=== PATIENT | female | born 1970 | race Caucasian/White ===

== ENCOUNTER → 2018-02-20 17:36 | Outpatient (CLI) | payer OTHER, SELFPAY ==
[2018-02-25 11:08] LABS: HPV Reflexed? NOT INDICATED
== END ==
PROVIDERS: Visit Provider Obstetrics & Gynecology
DX: Z12.4 Encounter for screening for malignant neoplasm of cervix (principal)
CPT/HCPCS: 88175; G0145

== ENCOUNTER → 2018-05-06 07:49 | Outpatient (CLI) | payer OTHER, SELFPAY ==
[2018-05-06 09:06] LABS: Absolute Lymphocyte Count 3.43 X10^3/ul (0.83-4.51); Absolute Neutrophil Count 8.5 X10^3/uL (2.0-7.7); Basophil# 0.04 X10^3/uL; Basophil% 0.3 % (0-1); Color, Urine Yellow (Yellow); Eosinophil# 0.25 X10^3/uL; Eosinophils% 1.9 % (0-5); Glucose, Dipstick Normal (Normal); Hematocrit 39.3 % (37-47); Hemoglobin 13.2 g/dl (12.0-15.0); Ketone-Dipstick Negative (Negative); Leukocyte Esterase-Dipstick 25 /ul (Negative); Lymphocyte # 3.43 X10^3/ul; Lymphocyte % 25.7 % (19-41); Mean Corp Hgb Conc 33.6 g/gl (32-36); Mean Corpuscular Hgb 29.5 pg (27.0-32.0); Mean Corpuscular Volume 87.9 fL (81-99); Monocyte% 7.5 % (0-10); Neutrophil # 8.52 X10^3/uL (2.7-7.7); Neutrophil % 63.9 % (47-70); Nitrite-Dipstick Negative (Negative); Occult Blood-Urine Negative /ul (Negative); Platelet Count 327 K/mm3 (150-450); Protein-Dipstick 15 mg/dl (Negative); RBC Distribution Width CV 13.7 % (11.6-14.6); RBC Distribution Width SD 43.3 fl (35.1-43.9); Red Blood Count 4.47 M/mm3 (4.2-5.4); Specific Gravity, Urine 1.025 (1.002-1.030); Urine Bilirubin Dipstick Negative (Negative); Urine Clarity Clear (Clear); Urine Urobilinogen Normal (Normal); White Blood Count 13.3 K/mm3 (4.4-11.0)
[2018-05-06 09:49] LABS: ALB/GLOB Ratio 0.9 RATIO (0.9-2.4); AST(SGOT) 40 U/L (15-37); Alanine Aminotransfer ALT/SGPT 66 U/L (13-56); Albumin, Serum 3.7 g/dL (3.2-5.0); Alkaline Phosphatase 87 U/L (45-117); Anion Gap 13 (5-15); BUN 16 mg/dL (7-18); BUN/Creat Ratio 23.4 RATIO (10-20); Bilirubin, Direct 0.11 mg/dL (0.00-0.30); Calcium,Total 8.5 mg/dL (8.5-10.1); Chloride 104 mmol/L (98-107); Cholesterol 181 mg/dL (200); Creatinine, Serum 0.68 mg/dL (0.55-1.02); EST Glomerular Filtration Rate 97 mL/min (>60); Est Glom Filt Rate - Afr Amer 118 mL/min (>60); Globulin 3.9 g/dL (2.2-4.2); Glucose 97 mg/dL (74-106); High Density Lipoprotein 43 mg/dL; LDH 217 U/L (84-246); Protein, Total 7.6 g/dL (6.4-8.2); Sodium Level 141 mmol/L (136-145); Triglycerides 144 mg/dL; Uric Acid 4.4 mg/dL (2.6-6.0); Very Low Density Lipoprotein 29 mg/dL (5-40)
[2018-05-06 09:54] LABS: ALB/GLOB Ratio 0.9 RATIO (0.9-2.4); AST(SGOT) 42 U/L (15-37); Alanine Aminotransfer ALT/SGPT 66 U/L (13-56); Albumin, Serum 3.7 g/dL (3.2-5.0); Alkaline Phosphatase 86 U/L (45-117); Anion Gap 13 (5-15); BUN 16 mg/dL (7-18); BUN/Creat Ratio 24.2 RATIO (10-20); Calcium,Total 8.5 mg/dL (8.5-10.1); Chloride 104 mmol/L (98-107); Creatinine, Serum 0.66 mg/dL (0.55-1.02); EST Glomerular Filtration Rate 102 mL/min (>60); Est Glom Filt Rate - Afr Amer 123 mL/min (>60); Globulin 3.9 g/dL (2.2-4.2); Glucose 100 mg/dL (74-106); Protein, Total 7.6 g/dL (6.4-8.2); Sodium Level 141 mmol/L (136-145)
[2018-05-06 09:58] LABS: COTININE Drug Screen Negative (<200 ng/mL)
== END ==
PROVIDERS: Family Provider Family Medicine; PCP Family Medicine; Visit Provider Family Medicine
DX: E03.9 Hypothyroidism, unspecified (principal); Z13.1 Encounter for screening for diabetes mellitus
CPT/HCPCS: 36415; 80053; 80307; 84443

== ENCOUNTER → 2018-05-17 07:38 | Outpatient (CLI) | payer OTHER, SELFPAY ==
[2018-05-17 11:54] LABS: Vitamin D,25 Hydroxy 20.8 ng/mL (29.95-100.01)
== END ==
PROVIDERS: Family Provider Family Medicine; PCP Family Medicine; Visit Provider Family Medicine
DX: E55.9 Vitamin D deficiency, unspecified (principal)
CPT/HCPCS: 36415; 82306

== ENCOUNTER → 2018-07-01 13:59 | Outpatient (CLI) | payer OTHER, SELFPAY ==
--- NOTE | 2018-07-01 14:11 | BI_ITS ---
MAMMOGRAPHY - BILATERAL SCREENING REASON FOR EXAM: Female, 48 years old. Routine annual screening examination. PERTINENT HISTORY: Non-contributory. TECHNIQUE: Digital bilateral breast yvette (3D mammographic acquisition) in the CC and MLO projections. 2-D mediolateral oblique (MLO) and craniocaudad (CC) views of both breasts were obtained. CAD: Full Field Digital Mammography with Computer Added Detection was performed. COMPARISON: Comparison is made with prior study dated January 01, 2017 and October 21, 2014. FINDINGS: Breast Composition: There are scattered areas of fibroglandular density. There are no dominant masses or suspicious calcifications. No other significant abnormalities are identified. There has been no significant change since the prior study. BI/SCREENING MAMM (CAD), BILAT IMPRESSION: Stable bilateral screening mammogram. Yearly follow-up mammogram recommended. (A) ASSESSMENT CATEGORY: BIRADS Category 1: Negative. A letter regarding these results will be sent to the patient by the facility within 30 days. Approximately 10% of breast cancers are not detected by mammography. A normal mammogram should not delay biopsy of a clinically suspicious abnormality. [id number] Electronically Signed: Keny Brandon MD at 13:09 EDT Tel [phone], Service support ,
== END ==
PROVIDERS: Family Provider Family Medicine; PCP Family Medicine; Referring Provider Obstetrics & Gynecology; Visit Provider Obstetrics & Gynecology
DX: Z12.31 Encounter for screening mammogram for malignant neoplasm of breast (principal)
CPT/HCPCS: 77063; 77067

== ENCOUNTER → 2018-08-28 07:31 | Outpatient (CLI) | payer OTHER, SELFPAY ==
[2018-08-28 09:04] LABS: Vitamin D,25 Hydroxy 23.8 ng/mL (29.95-100.01)
--- OUTSIDE RECORDS SUMMARY | 2018-11-29 08:05 | XMS RPT_ITS ---
:1970 Author Organization OHIP Support Name Relationship Address Phone BLUE BRADEN Unavailable [address] + [place] [address] LEROY, MARIO Unavailable [address] + [address] [place] [address] [facility] Unavailable [address] + [place] [address] FORESTRICHIEA Unavailable [address] + [place] [address] LEROY, MARIO Unavailable [address] + [address] [place] [address] WC Unavailable [address] + [place] [address] FORESTRICHIEA Unavailable [address] + [place] [address] LEROY, MARIO Unavailable [address] + [address] [place] [address] [facility] Unavailable [address] + [place] [address] BETSY, BLUE Unavailable [address] + [place] [address] LEROY, MARIO Unavailable [address] + [address] [place] [address] WC Unavailable [address] + [place] [address] BETSY, BLUE Unavailable [address] + [place] [address] LEROY, MARIO Unavailable [address] + [address] [place] [address] WC Unavailable [address] + [place] [address] BETSYRICHIEA Unavailable [address] + [place], [place] [id number] NOT GIVEN Unavailable Unavailable Unavailable BETSYRICHIEA Unavailable [address] + [place] [address] LEROY, MARIO Unavailable [address] + [address] [place] [address] [facility] Unavailable [address] + [place] [address] BETSY BLUE Unavailable [address] + [place] [address] LEROY, MARIO Unavailable [address] + [address] [place] [address] WC Unavailable [address] + [place] [address] BETSYRICHIEA Unavailable [address] + [place] [address] LEROY, MARIO Unavailable [address] + [address] [place] [address] WC Unavailable [address] + [place] [address] EBTSY BLUE Unavailable [address] + [place] [address] LEROY, MARIO Unavailable [address] + [address] [place] [address] [facility] Unavailable [address] + [place] [address] Care Team Providers Name Role Phone ROCK ARITA Admitting Unavailable ROCK ARITA Attending Unavailable ROCK ARITA Primary Care Unavailable ROCK ARITA Consulting Unavailable PROVIDER, UNKNOWN Consulting Unavailable PROVIDER, UNKNOWN Consulting Unavailable PROVIDER, UNKNOWN Consulting Unavailable Jack Amin Attending Unavailable Jack Amin Referring Unavailable Rock Arita Attending Unavailable Rock Arita Referring Unavailable Rock Arita Primary Care Unavailable ASSESSMENT, HEALTH RISK Attending Unavailable ASSESSMENT, HEALTH RISK Referring Unavailable Rock Arita Primary Care Unavailable Rock Arita Attending Unavailable Rock Arita Referring Unavailable Rock Arita Primary Care Unavailable Lenka Orosco D.C. Attending Unavailable Rock Arita Referring Unavailable Lenka Orosco D.C. Attending Unavailable Jack Amin Attending Unavailable Jack Amin Referring Unavailable Rock Arita Primary Care Unavailable Lenka Orosco D.C. Attending Unavailable Rock Arita Referring Unavailable Rock Arita Attending Unavailable Rock Arita Primary Care Unavailable Rock Arita Referring Unavailable PROBLEMS PROBLEMS DATE TYPE CONDITION / CODE ATTENDING STATUS SOURCE 07/04/2018 Unknown M99.01 - Dossie, Lenka Active [facility] Hospital dysfunction of Repository cervical region / M99.01(ICD-10) 07/04/2018 Unknown M54.12 - Dossie, Lenka Active [facility] cervical region / Hospital M54.12(ICD-10) Repository 07/04/2018 Unknown M99.02 - Dossie, Lenka Active [facility] Hospital dysfunction of Repository thoracic region / M99.02(ICD-10) 05/17/2018 Unknown E55.9 - Vitamin D Rock Arita deficiency, [facility] unspecified / Hospital E55.9(ICD-10) Repository 02/21/2018 Unknown Z12.4 - Encounter Jack Amin for screening for Critical access hospital Hospital neoplasm of Repository cervix / Z12.4(ICD-10) PROCEDURES PROCEDURES No Procedure Records FoundRESULTS RESULTS VITAMIN D,25 HYDROXY Collected: 08/28/2018 Status: F Source: [facility] 7:35 AM [facility] REPOSITORY TYPE CODE TESTS RESULT OUT OF REFERENCE UNITS RANGE LAB L506.1000 29.95-100.01 ng/mL Low Vitamin D 23.8 25-OH Result Comment: Vitamin D 25(OH) Status Range Deficiency <20 ng/mL (50nmol/L) Insuffciency 20 - 30 ng/mL (50 - 75 nmol/L) Sufficiency 30 - 100 ng/mL (75 - 250 nmol/L) Toxicity >100 ng/mL (>250 nmol/L) Performed By: #### L506.1000 #### [facility] [place] [address] CHIROPRACTIC REPORT Observed: 07/09/2018 Status: F Source: [facility]ASH 9:09 AM [facility] REPOSITORY [facility] [address] [place] [address] OFFICE VISIT Date of Service: 07/03/18 MR#: [id number] Acct: [id number] Name: AUSTIN REED Rep #: [id number] : 1970 Provider: Lenka Mar D.C. Age/Sex: 48/F Location: [facility] Status: Signed Intake Vital Signs07/03/18 Height 5 ft 6 in 07/03/18 Weight: 245 lb 07/03/18 Body Mass Index (BMI) 39.5 Intake Visit Reasons: R shoulder pain Chief Complaint: R sided shoulder blade pain Is patient in pain?: Yes Allergies No Known Allergies Allergy (Verified 10/24/15 20:26) Medications escitalopram 10 mg tablet 10 mg PO QDAY 09/17/17 [History Confirmed 09/17/17] levothyroxine 50 mcg tablet PO 09/17/17 [History Confirmed 09/17/17] multivitamin tablet 1 tab PO QAM 09/17/17 [History Confirmed 09/17/17] [facility] Medical History Hyperthyroidism (Acute) Social History Smoking Status: Never smoker HPI R shoulder pain : Chief Complaint: R sided shoulder pain Visit Number: 4 Details: AUSTIN REED is a 48 year old F who presents with decreased R sided shoulder pain. Austin states that her pain has slightly decreased, although after working a long shift her pain does increase. Reaching, lifting, and rotation of the arm causes increased pain, the pain is described as a sore and tight popping sensation that comes and goes. Austin denies any numbness, tingling, or radiculopathy. Location: R sided shoulder pain Duration: intermittent Aggravating or associated factors: lifting, rotation, and reaching Relieving factors: rest and chiro Pain Quality: aching, dull, cramping Exam Musc General: Yes normal gait and joint tenderness (T4-T7); no normal posture (anterior head carriage) Thoracic/Lumbar Spine: thoraco-lumbar spasm (R rhomboid-slightly improved), paraspinal tenderness (slightly improved) bilaterally in the mid thoracic and in the upper thoracic, thoraco-lumbar ROM limited, pain with thoraco-lumbar ROM Office Procedures Chiropractic Treatments Procedures Manipulation: 1-2 regions (T4,T7) Electrical Stimulation: 15 mins (R thoracic ) Assessment AND Plan 1. Segmental and somatic dysfunction of thoracic region M99.02 Orders Orders: Plan Detail Other Orders Orders: Goals Decrease pain and spasm Follow Up 1 x week Coding Level of Care Code No Charge Diagnoses Segmental and somatic dysfunction of thoracic region M99.02 Additional Codes Procedures - Electrical Stimulation: 15 mins (52932) Procedures - Manipulation: 1-2 regions (42735) 07/09/18 0909 <Electronically signed by Lenka Mar D.C.> Date Lenka Mar D.C. Cosigner Signature: Date (if applicable) CC: SCREENING MAMM (CAD), Observed: 07/01/2018 Status: F Source: [facility] 2:11 PM [facility] REPOSITORY [facility] Imaging Services [address] [place] [address] SCREENING MAMM (CAD), [facility] MR#: [id number] Acct: [id number] Name: AUSTIN REED Rep #: [id number] : 1970 F 47 From: Keny Brandon MD PCP: Rock Arita md Status: [facility] CL Study: SCREENING MAMM (CAD), BILAT Date of Exam: 07/01/18 Exam# [id number] Ordering Dr: Jcak Amin MD MAMMOGRAPHY - BILATERAL SCREENING REASON FOR EXAM: Female, 48 years old. Routine annual screening examination. PERTINENT HISTORY: Non-contributory. TECHNIQUE: Digital bilateral breast yvette (3D mammographic acquisition) in the CC and MLO projections. 2-D mediolateral oblique (MLO) and craniocaudad (CC) views of both breasts were obtained. CAD: Full Field Digital Mammography with Computer Added Detection was performed. COMPARISON: Comparison is made with prior study dated January 01, 2017 and October 21, 2014. FINDINGS: Breast Composition: There are scattered areas of fibroglandular density. There are no dominant masses or suspicious calcifications. No other significant abnormalities are identified. There has been no significant change since the prior study. BI/SCREENING MAMM (CAD), BILAT IMPRESSION: Stable bilateral screening mammogram. Yearly follow-up mammogram recommended. (A) ASSESSMENT CATEGORY: BIRADS Category 1: Negative. A letter regarding these results will be sent to the patient by the facility within 30 days. Approximately 10% of breast cancers are not detected by mammography. A normal mammogram should not delay biopsy of a clinically suspicious abnormality. [id number] Electronically Signed: Keny Brandon MD at 13:09 EDT Tel [phone], Service support , CC: md Rock Arita; Jack Amin MD Supply Requirements Officer: Signed CHIROPRACTIC REPORT Observed: 07/01/2018 Status: F Source: [facility] 12:10 PM [facility] [address] [place] [address] OFFICE VISIT Date of Service: 06/25/18 MR#: [id number] Acct: [id number] Name: AUSTIN REED Rep #: [id number] : 1970 Provider: Lenka Mar D.C. Age/Sex: 47/F Location: [facility] Status: Signed Intake Vital Signs06/25/18 Height 5 ft 6 in 06/25/18 Weight: 245 lb 06/25/18 Body Mass Index (BMI) 39.5 Intake Visit Reasons: back pain Chief Complaint: R sided shoulder blade pain Is patient in pain?: Yes Allergies No Known Allergies Allergy (Verified 10/24/15 20:26) Medications escitalopram 10 mg tablet 10 mg PO QDAY 09/17/17 [History Confirmed 09/17/17] levothyroxine 50 mcg tablet PO 09/17/17 [History Confirmed 09/17/17] multivitamin tablet 1 tab PO QAM 09/17/17 [History Confirmed 09/17/17] [facility] Medical History Hyperthyroidism (Acute) Social History Smoking Status: Never smoker HPI back pain : Chief Complaint: R sided shoulder blade pain Visit Number: 3 Details: AUSTIN REED is a 47 year old F who presents with R sided shoulder blade pain. She states that after her last treatment her pain did slightly decrease, although after working a shift the pain returned. Today Austin rates her pain a 4/10 and describes it as a tight and catching sensation when moving the R arm or lifting. At times with a sudden movement the pain will become sharp, although she denies any numbness, tingling, or radiculopathy. Location: R shoulder blade Duration: constant Aggravating or associated factors: rotation, lifting, and sudden movement Relieving factors: chiro Pain Quality: aching, dull, sharp Exam Musc General: Yes normal gait and joint tenderness (T4-T7); no normal posture (anterior head carriage) Thoracic/Lumbar Spine: thoraco-lumbar spasm (R rhomboid), paraspinal tenderness on the right (T4-T7), thoraco-lumbar ROM limited with forward flexion and with lateral flexion to the left, pain with thoraco-lumbar ROM with lateral flexion to the left Office Procedures Chiropractic Treatments Procedures Manipulation: 1-2 regions (T4,T7) Electrical Stimulation: 15 mins (R shoulder area ) Assessment AND Plan 1. Segmental and somatic dysfunction of cervical region M99.01 Orders Orders: 2. Segmental and somatic dysfunction of thoracic region M99.02 Orders Orders: Plan Detail Other Orders Orders: Goals Decrease pain and spasm Follow Up 2 x week Coding Level of Care Code No Charge Diagnoses Segmental and somatic dysfunction of cervical region M99.01 Segmental and somatic dysfunction of thoracic region M99.02 Additional Codes Procedures - Electrical Stimulation: 15 mins (02659) Procedures - Manipulation: 1-2 regions (18432) 10/22/18 1210 <Electronically signed by Lenka Mar D.C.> Date Lenka Mar D.C. Cassieigner Signature: Date (if applicable) CC: CHIROPRACTIC REPORT Observed: 06/18/2018 Status: F Source: [facility] 3:58 PM [facility] [address] [place] [address] OFFICE VISIT Date of Service: 06/18/18 MR#: [id number] Acct: [id number] Name: AUSTIN REED Rep #: [id number] : 1970 Provider: Lenka Mar D.C. Age/Sex: 47/F Location: [facility] Status: Signed Intake Vital Signs06/18/18 Height 5 ft 6 in 06/18/18 Weight: 245 lb 06/18/18 Body Mass Index (BMI) 39.5 Intake Visit Reasons: back pain Chief Complaint: R sided mid back pain Is patient in pain?: Yes Allergies No Known Allergies Allergy (Verified 10/24/15 20:26) Medications escitalopram 10 mg tablet 10 mg PO QDAY 09/17/17 [History Confirmed 09/17/17] levothyroxine 50 mcg tablet PO 09/17/17 [History Confirmed 09/17/17] multivitamin tablet 1 tab PO QAM 09/17/17 [History Confirmed 09/17/17] [facility] Medical History Hyperthyroidism (Acute) Social History Smoking Status: Never smoker HPI back pain : Chief Complaint: R sided mid back pain Visit Number: 2 Details: AUSTIN REED is a 47 year old F who presents with R sided shoulder and mid back pain. She states that recently she has been moving furniture causing increased pain and tightness across the mid back. Today Austin rates her pain a 5/10 and describes it as a tight and sharp ache that bands across the mid back. When laying face down the R shoulder become tight, sharp and applies pressure to the area. Austin denies any numbness, tingling, or radiculopathy although lifting, laying, and reaching the arms above the head causes increased pain. Location: R mid back Duration: constant Aggravating or associated factors: rotation, lifting, and twisting Relieving factors: chiro Pain Quality: aching, dull, cramping, sharp Exam Musc General: Yes normal gait and joint tenderness (T4-T7); no normal posture (anterior head carriage) Thoracic/Lumbar Spine: thoraco-lumbar spasm (R rhomboid), paraspinal tenderness on the right in the mid thoracic, thoraco-lumbar ROM limited with forward flexion and with rotation to the right, pain with thoraco-lumbar ROM with forward flexion and with rotation to the right Neuro General: alert, awake, oriented x3, normal light touch, pain and propioception, no focal motor deficits Ortho Test CERVICAL THORACIC Kemps: Positive, Rig Schepelmanns pain: Right Cleaning: Negative LUMBAR Office Procedures Chiropractic Treatments Procedures Manipulation: 1-2 regions (T5, T6) Electrical Stimulation: 15 mins (R thoracic ) Assessment AND Plan 1. Segmental and somatic dysfunction of thoracic region M99.02 Orders Orders: Plan Detail Other Orders Orders: Goals Decrease pain and spasm Follow Up 1 Week Coding Level of Care Code Off vis,est,level 1 Diagnoses Segmental and somatic dysfunction of thoracic region M99.02 Additional Codes Procedures - Electrical Stimulation: 15 mins (81831) Procedures - Manipulation: 1-2 regions (91617) 06/18/18 7813 <Electronically signed by Lenka Mar D.C.> Date Lenka Mar D.C. Cosigner Signature: Date (if applicable) CC: VITAMIN D,25 HYDROXY Collected: 05/17/2018 Status: F Source: [facility] 7:43 AM [facility] REPOSITORY TYPE CODE TESTS RESULT OUT OF REFERENCE UNITS RANGE LAB L506.1000 29.95-100.01 ng/mL Low Vitamin D 20.8 25-OH Result Comment: Vitamin D 25(OH) Status Range Deficiency <20 ng/mL (50nmol/L) Insuffciency 20 - 30 ng/mL (50 - 75 nmol/L) Sufficiency 30 - 100 ng/mL (75 - 250 nmol/L) Toxicity >100 ng/mL (>250 nmol/L) Performed By: #### L506.1000 #### [facility] [address] [place], [place], [address] COMPREHENSIVE METABOLIC Collected: 05/06/2018 Status: F Source: [facility] 8:05 AM [facility] REPOSITORY Order Comment: LIPID IS IN EMP LABS ALREADY DONT NEED IT AGAIN TYPE CODE TESTS RESULT OUT OF RANGE REFERENCE UNITS LAB L501.0100 74-106 mg/dL Normal GLU 100 Result Comment: Fasting Glucose result from 100 to 125 mg/dL suggests IMPAIRED HOMEOSTASIS per A.D.A. criteria. Please note revised GLUCOSE reference range effective 2017. LAB L501.1000 7-18 mg/dL Normal BUN 16 LAB L501.1100 0.55-1.02 mg/dL Normal CREAT,SERUM 0.66 Result Comment: The validity of the calculated GFR AND GFRAA in patients over 70 years has not been determined. Clinical correlation is essential. LAB L501.1110 >60 mL/min Normal EST GFR 102 Result Comment: Non- GFR Calc LAB L501.1115 >60 mL/min Normal EST GFR - AA 123 Result Comment: GFR Calc LAB L501.1300 10-20 RATIO High BUN/CRE 24.2 LAB L501.1500 6.4-8.2 g/dL T Normal PROT 7.6 LAB L501.1800 3.2-5.0 g/dL Normal ALB 3.7 LAB L501.1950 2.2-4.2 g/dL Normal GLOB 3.9 LAB L501.2000 0.9-2.4 RATIO Normal A/G 0.9 LAB L501.2200 8.5-10.1 mg/dL CA Normal 8.5 LAB L501.4100 15-37 U/L High AST 42 LAB L501.4305 45-117 U/L Normal ALK P 86 LAB L501.4405 13-56 U/L High ALT 66 LAB L501.4600 0.20-1.00 mg/dL T Normal BILI 0.40 LAB L501.5300 136-145 mmol/L NA Normal 141 LAB L501.5600 3.5-5.1 mmol/L K Normal 4.0 LAB L501.5900 98-107 mmol/L CL Normal 104 LAB L501.6100 21.0-32.0 mmol/L Normal CO2 24.0 LAB L501.6200 5-15 Normal GAP 13 Performed By: #### L500.4050, L501.9520 #### [facility] [address] [place], [place], [address] THYROID STIM HORMONE Collected: 05/06/2018 Status: F Source: [facility] 8:05 AM [facility] REPOSITORY Order Comment: LIPID IS IN EMP LABS ALREADY DONT NEED IT AGAIN TYPE CODE TESTS RESULT OUT OF RANGE REFERENCE UNITS LAB L501.9520 0.358-3.74 uIU/mL Normal TSH 2.50 Performed By: #### L500.4050, L501.9520 #### [facility] [address] [place], [place], [address] CBC, EMPLOYEE Collected: 05/06/2018 Status: F Source: [facility] 8:01 AM [facility] REPOSITORY TYPE CODE TESTS RESULT OUT OF RANGE REFERENCE UNITS LAB L100.1000 4.4-11.0 K/mm3 High WBC 13.3 LAB L100.1200 4.2-5.4 M/mm3 Normal RBC 4.47 LAB L100.1300 12.0-15.0 g/dl Normal HGB 13.2 LAB L100.1400 37-47 % Normal HCT 39.3 LAB L100.1500 81-99 fL Normal MCV 87.9 LAB L100.1600 27.0-32.0 pg Normal MCH 29.5 LAB L100.1700 32-36 g/gl Normal MCHC 33.6 LAB L100.1810 11.6-14.6 % Normal RDW CV 13.7 LAB L100.1820 35.1-43.9 fl Normal RDW SD 43.3 LAB L100.1900 150-450 K/mm3 Normal PLT 327 LAB L100.2000 6.2-12.0 fl Normal MPV 11.0 LAB L100.2110 47-70 % Normal NEUT% 63.9 LAB L100.2210 19-41 % Normal LY% 25.7 LAB L100.2310 0-10 % Normal MONO% 7.5 LAB L100.2410 0-5 % Normal EO% 1.9 LAB L100.2510 0-1 % Normal BASO% 0.3 LAB L100.2620 2.0-7.7 X10 3/uL High Absolute Neut 8.5 LAB L100.2720 0.83-4.51 X10 3/ul Normal Absolute Lymph 3.43 Performed By: #### L100.0200 #### [facility] [address] [place], [place], [id number] URINALYSIS, EMPLOYEE Collected: 05/06/2018 Status: F Source: [facility] 8:01 [facility] REPOSITORY TYPE CODE TESTS RESULT OUT OF RANGE REFERENCE UNITS LAB L400.3000 Yellow COLOR Normal Yellow LAB L400.3050 Clear Normal CLARITY Clear LAB L400.3200 Normal mg/dl Normal GLUCOSE, UR Normal LAB L400.3300 Negative mg/dL Normal BILIRUBIN URINE Negative LAB L400.3400 Negative mg/dl Normal KETONE UR Negative LAB L400.3465 1.002-1.030 Normal SP.GR. DIPSTX 1.025 LAB L400.3550 5.0 - 8.0 pH UR Normal 5.0 LAB L400.3600 Negative mg/dl High PROT 15 DIPSTX LAB L400.3700 Normal mg/dl Normal UROBILI Normal LAB L400.3750 Negative Normal NITRITE UR Negative LAB L400.3780 Negative /ul Normal OCCULT BLOOD-UR Negative LAB L400.3800 Negative /ul High LEUK 25 ESTERASE Performed By: #### L400.0100 #### [facility] [address] [facility]. [place], [place], [address] EMPLOYEE PROFILE Collected: 05/06/2018 Status: F Source: [facility] 8:01 [facility] REPOSITORY TYPE CODE TESTS RESULT OUT OF RANGE REFERENCE UNITS LAB L501.0100 74-106 mg/dL Normal GLU 97 Result Comment: Please note revised GLUCOSE reference range effective 2017. LAB L501.1000 7-18 mg/dL Normal BUN 16 LAB L501.1100 0.55-1.02 mg/dL Normal CREAT,SERUM 0.68 Result Comment: The validity of the calculated GFR AND GFRAA in patients over 70 years has not been determined. Clinical correlation is essential. LAB L501.1110 >60 mL/min Normal EST GFR 97 Result Comment: Non- GFR Calc LAB L501.1115 >60 mL/min Normal EST GFR - AA 118 Result Comment: GFR Calc LAB L501.1300 10-20 RATIO High BUN/CRE 23.4 LAB L501.1400 2.6-6.0 mg/dL Normal URIC 4.4 Result Comment: The drugs N-Acetylcysteine and Metamizole may falsely depress this assay. LAB L501.1500 6.4-8.2 g/dL Normal T PROT 7.6 LAB L501.1800 3.2-5.0 g/dL Normal ALB 3.7 LAB L501.1950 2.2-4.2 g/dL Normal GLOB 3.9 LAB L501.2000 0.9-2.4 RATIO Normal A/G 0.9 LAB L501.2200 8.5-10.1 mg/dL Normal CA 8.5 LAB L501.2300 2.5-4.9 mg/dL Normal PHOS 3.0 LAB L501.4100 15-37 U/L High AST 40 LAB L501.4305 45-117 U/L Normal ALK P 87 LAB L501.4405 13-56 U/L High ALT 66 LAB L501.4600 0.20-1.00 mg/dL Normal T BILI 0.40 LAB L501.4700 0.00-0.30 mg/dL Normal D BILI 0.11 LAB L501.4900 200 mg/dL Normal CHOL 181 Result Comment: <200 mg/dL Desirable 200-240 mg/dL Borderline >240 mg/dL High Risk LAB L501.5000 mg/dL Normal TRIG 144 Result Comment: The drugs N-Acetylcysteine and Metamizole may falsely depress this assay. Serum Triglycerides Reference Interval Normal <150 mg/dL Borderline high 150 - 199 mg/dL High 200 - 499 mg/dL Very High > or = 500 mg/dL LAB L501.5300 136-145 mmol/L Normal NA 141 LAB L501.5600 3.5-5.1 mmol/L Normal K 4.0 LAB L501.5900 98-107 mmol/L Normal CL 104 LAB L501.6100 21.0-32.0 mmol/L Normal CO2 24.0 LAB L501.6200 5-15 Normal GAP 13 LAB L501.6400 mg/dL Normal HDL 43 Result Comment: The drugs N-Acetylcysteine and Metamizole may falsely depress this assay. Reference Range HDL <40 mg/dL Low HDL Cholesterol HDL >or= 60 mg/dL High HDL Cholesterol LAB L501.6475 Normal CHOL:HDL 4.20 LAB L501.6500 0-130 mg/dL Normal LDL 109 LAB L501.6600 5-40 mg/dL Normal VLDL 29 LAB L504.2610 84-246 U/L Normal LDH 217 Performed By: #### L500.2900 #### [facility] [address] [facility] [place], [address] NICOTINE URINE DRUG Collected: 05/06/2018 Status: F Source: [facility] SCREEN 8:01 AM [facility] REPOSITORY TYPE CODE TESTS RESULT OUT OF RANGE REFERENCE UNITS LAB L505.6250 TO BE Normal CONFIRMED Result Comment: CONFIRMATORY TESTING FOR ALL POSITIVE URINE DRUG SCREEN RESULTS WILL ONLY BE SENT OUT UPON PHYSICIAN ORDER. The results of Urine Drug Screen methods provide only preliminary analytical test results. A more specific alternate chemical method must be used in order to obtain a confirmed analytical result. Gas chromatography/mass spectrometery (GC/MS) is the preferred confirmatory method. Clinical consideration and professional judgement should be applied to any drug of abuse test result, particularly when preliminary positive results are used. LAB L505.6270 <200 ng/mL Normal COT DRG Negative SCREEN Result Comment: Cotinine is the first-stage metabolite of Nicotine. Performed By: #### L505.6240 #### [facility] [address] [facility] [place], [address] PAP IG W/REFLEX HR Collected: 02/20/2018 Status: F Source: [facility] 2:30 PM [facility] REPOSITORY Order Comment: CYTOLOGY INFORMATION: - CLINICAL INFORMATION: HYSTERECTOMY - DATE LMP/MENOPAUSE: LMP - COLLECTION VIAL: Thin Prep Vial - WEIGHER AND GRADER SOURCE: CERVICAL/ENDOCERVICAL - COLLECTION TECHNIQUE: BRUSH/SPATULA Specimen Comment: [id number] Specimen Comment: No. of containers..01 ThinPrep Vial TYPE CODE TESTS RESULT OUT OF RANGE REFERENCE UNITS LAB L7400.0800 . Normal DIAGN Comment Result Comment: NEGATIVE FOR INTRAEPITHELIAL LESION AND MALIGNANCY. LAB L7400.0900 . Normal ADEQ Comment Result Comment: Satisfactory for evaluation. Endocervical and/or squamous metaplastic cells (endocervical component) are present. LAB L7400.1400 . Normal PERFORM Comment Result Comment: Humera Khan, Him Director (ASCP) LAB L7400.2575 . Normal TEST METHOD Comment Result Comment: This liquid based ThinPrep(R) pap test was screened with the use of an image guided system. LAB L7400.2600 . Normal . COMM LAB L7400.2700 . Normal PAPSMR Comment Result Comment: The Pap smear is a screening test designed to aid in the detection of premalignant and malignant conditions of the uterine cervix. It is not a diagnostic procedure and should not be used as the sole means of detecting cervical cancer. Both false-positive and false-negative reports do occur. LAB L7400.2800 . Normal HPV RFLX Comment Result Comment: The HPV DNA reflex criteria were not met with this specimen result therefore, no HPV testing was performed. Performed at: [address] [id number] [employer] Manager: Avis Guevara MD, Phone: [phone] Performed By: #### L7400.0357 #### [facility] (refer to report for specific site) refer to report for address and phone number ALLERGIES ALLERGIES DATE TYPE / CODE NAME / CODE REACTION SEVERITY SOURCE 10/24/2015 Drug No Known Unknown [place] Allergy/384686270(S [facility]/F[facility] [place] [address] Hospital Repository Miscellaneous No Known Moderate Aaron Pomerene Allergy/839951252(S Allergies (Severity [facility] NOMED CT) Modifier) Hospital (Qualifier Repository Value) ENCOUNTERS ENCOUNTERS ADMIT/DISCHARGE ACCOUNT ADMITTING ENCOUNTER LOCATION SOURCE NUMBER CLASS 08/28/2018 [id number] [place] [facility] ing:LAB.FUTUR Repository E 07/03/2018/ [id number] Ambulatory BMSBuilding:B [place] 8 7 [facility] Repository 07/01/2018 [id number] Ambulatory [place] 0 [facility] ing:OPBI Repository 06/25/2018/ [id number] Ambulatory BMSBuilding:B [place] 8 1 [facility] Repository 06/18/2018/ [id number] Ambulatory BMSBuilding:B [place] 8 3 MS[facility] Repository 06/04/2018 [id number] [facility] Repository 05/17/2018 [id number] Ambulatory [place] 4 [facility] ing:LAB Repository 05/06/2018 [id number] Ambulatory [place] [facility] ing:EMPH Repository 05/06/2018 [id number] Ambulatory Kash [place] 3 [facility] ing:LAB Repository 02/20/2018 [id number] Ambulatory [place] Kash 6 [facility] ing:LABSPEC Repository PAYERS PAYERS ENCOUNTER GUARANTOR PAYER SUBSCRIBER SOURCE 08/28/2018 [place] Primary Insurance:[facility] [place] Kash [id number] [facility] MELLORDOB: [address] SERVICESPolicy Number: [id number] [facility] [address]Yta: 330 [id number] Repository [phone] () Date:8560-31-75[address] [address]VXIZLVRED, [place] [address]HQ: CHECK WEBSITE 08/28/2018 Secondary NOT GIVENUNK [place] Insurance:SELF PAY [facility] Number: Effective Repository Date:2018-08-14 07/03/2018 [place] Primary Insurance:[facility] [place] Kash [id number] [facility] MELLORDOB: [address] SERVICESPolicy Number: [id number] [facility] [address]Brn: 330 [id number] Repository [phone] () Date:2505-27-33[address] [address]AFOPV[place], [place] [address]UM: CHECK WEBSITE 07/03/2018 Secondary NOT GIVENUNK [place] Insurance:SELF PAY [facility] Number: Effective Repository Date:2018-07-03 07/01/2018 [place] Primary Insurance:[facility] [place] Kash [id number] [facility] MELLORDOB: [address] SERVICESPolic Number: [id number] [address]Odv: 330 [id number] Repository [phone] () Date:7502-21-25[address] [address]QYFIUZP, [place] [address]XN: CHECK WEBSITE 07/01/2018 Secondary NOT GIVENUNK [place] Insurance:SELF PAY [facility] Number: Effective Repository Date:2018-02-26 06/25/2018 [place] Primary Insurance:[facility] [place] [id number] [facility] MELLORDOB: [address] Number: [id number] Hospital [address]Xoc: 330 [id number] Repository [phone] () Date:2689-70-78GR [address] [address]ZZYLPXOVU, [place] [address]MA: CHECK WEBSITE 06/25/2018 Secondary NOT GIVENUNK [place] Insurance:SELF PAY [facility] Number: Effective Repository Date:2018-06-25 06/18/2018 [place] Primary Insurance:[facility] [place] [id number] [facility] MELLORDOB: [address] SERVICESPolicy Number: [id number] Hospital [address]Dzk: 330 [id number] Repository [phone] () Date:7286-52-31RY [address] [address]WETHNFFK, [place] [address]DT: CHECK WEBSITE 06/18/2018 Secondary NOT GIVENUNK Kash Insurance:SELF PAY [facility] Number: Effective Repository Date:2018-06-18 06/04/2018 [place] L Primary [place] L Aaron Aggarwal MELLORDOB: Insurance:MEDICAL MELLORDOB: [facility] [id number] [facility] [id number] [place] [address] [address] [place] [address]Acx: Number: [place] [id number] [phone] (HP) Date:Plan Name: 05/17/2018 [place] L Primary Insurance:[facility] [place] [id number] [facility] [address] SERVICESPolicy Number: [id number] Hospital [address]Ghv: (330 [id number] Repository [phone] () Date:7874-24-61ZY [address] [address]ENJWHPGQJ, [place] [address]VW: CHECK WEBSITE 05/17/2018 Secondary NOT GIVENUNK [place] Insurance:SELF PAY [facility] Number: Effective Repository Date:2018-05-17 05/06/2018 [place] Primary Insurance:SELF NOT GIVENUNK [place] [id number] [address] Number: Effective Hospital [id number]: (330) Date:2018-05-06 Repository [phone] (HP) 05/06/2018 [place] Primary Insurance:[facility] [place] L Kash [id number] [facility]: [address] SERVICESPolicy Number: [id number] Hospital [address]Lrd: (330 [id number] Repository [phone] () Date:2375-82-40DV [address] [address]XNRBSMC, [place] [address]EU: CHECK WEBSITE 05/06/2018 Secondary NOT GIVENUNK [place] Insurance:SELF PAY [facility] Number: Effective Repository Date:2018-05-06 02/20/2018 [place] Primary Insurance:[facility] [place] [id number] [facility]: [address] Number: [id number] Hospital [address]Qam: 330 [id number] Repository [phone] () Date:7837-42-78O[address] [address]FIAOQ[place], [place] [address]VW: CHECK WEBSITE 02/20/2018 Secondary NOT GIVENUNK [place] Insurance:SELF PAY [facility] Number: Effective Repository Date:2018-02-20
== END ==
PROVIDERS: Family Provider Family Medicine; PCP Family Medicine; Referring Provider Family Medicine; Visit Provider Family Medicine
DX: E55.9 Vitamin D deficiency, unspecified (principal)
CPT/HCPCS: 36415; 82306

== ENCOUNTER → 2018-10-29 12:07 | Outpatient (CLI) | payer OTHER, SELFPAY ==
--- NOTE | 2018-10-29 12:11 | US_ITS ---
STUDY: ULTRASOUND OF THE FEMALE PELVIS - COMPLETE REASON FOR EXAM: Female, 48 years old. Pelvic pain and pressure LMP: 10/15/18 TECHNIQUE: Transabdominal and Transvaginal TECHNICAL QUALITY: Adequate. COMPARISON: None. FINDINGS: The uterus is anteverted and is in a midline position. The uterus measures 7.8 x 4.5 x 4.0 cm. Normal uterine cervix. The endometrium measures 7.1 mm in thickness, and is hyperechoic. There is sonographic suggestion of a small endometrial polyp as there is endometrial contour irregularity. 2 small uterine fibroids suspected. I.U.D. - The patient does not have an I.U.D. The right ovary is visualized. The right ovary measures 2.3 x 2.0 x 1.1 cm. There is no right ovarian cyst or ovarian mass. There is no visualized right adnexal mass or complex lesion. There is normal arterial and normal venous vascularity. The left ovary is visualized. The left ovary measures 3.2 x 2.6 x 1.6 cm. There is no left ovarian cyst or ovarian mass. There is no visualized left adnexal mass or complex lesion. There is normal arterial and normal venous vascularity. There is no fluid in the cul-de-sac. The bladder is sonographically normal US/Pelvic (Non ) IMPRESSION: Normal size uterus with 2 small fibroids and a likely small endometrial polyp. Sonographically normal ovaries No demonstrated free fluid Electronically Signed: Fredi Crenshaw MD at 16:24 EST , Service support ,
--- NOTE | 2018-10-29 12:31 | US_ITS ---
STUDY: ULTRASOUND OF THE FEMALE PELVIS - COMPLETE REASON FOR EXAM: Female, 48 years old. Pelvic pain and pressure LMP: 10/15/18 TECHNIQUE: Transabdominal and Transvaginal TECHNICAL QUALITY: Adequate. COMPARISON: None. FINDINGS: The uterus is anteverted and is in a midline position. The uterus measures 7.8 x 4.5 x 4.0 cm. Normal uterine cervix. The endometrium measures 7.1 mm in thickness, and is hyperechoic. There is sonographic suggestion of a small endometrial polyp as there is endometrial contour irregularity. 2 small uterine fibroids suspected. I.U.D. - The patient does not have an I.U.D. The right ovary is visualized. The right ovary measures 2.3 x 2.0 x 1.1 cm. There is no right ovarian cyst or ovarian mass. There is no visualized right adnexal mass or complex lesion. There is normal arterial and normal venous vascularity. The left ovary is visualized. The left ovary measures 3.2 x 2.6 x 1.6 cm. There is no left ovarian cyst or ovarian mass. There is no visualized left adnexal mass or complex lesion. There is normal arterial and normal venous vascularity. There is no fluid in the cul-de-sac. The bladder is sonographically normal US/Transvaginal Non- IMPRESSION: Normal size uterus with 2 small fibroids and a likely small endometrial polyp. Sonographically normal ovaries No demonstrated free fluid Electronically Signed: Fredi Crenshaw MD at 16:24 EST , Service support ,
== END ==
PROVIDERS: Family Provider Family Medicine; PCP Family Medicine; Referring Provider Family Medicine; Visit Provider Family Medicine
DX: R10.2 Pelvic and perineal pain (principal)
CPT/HCPCS: 76830; 76856

== ENCOUNTER → 2019-02-21 07:30 | Outpatient (CLI) | payer OTHER, SELFPAY ==
[2019-02-21 08:40] LABS: Vitamin D,25 Hydroxy 25.7 ng/mL (29.95-100.01)
== END ==
PROVIDERS: Family Provider Family Medicine; PCP Family Medicine; Referring Provider Family Medicine; Visit Provider Family Medicine
DX: E55.9 Vitamin D deficiency, unspecified (principal)
CPT/HCPCS: 36415; 82306

== ENCOUNTER → 2019-04-24 07:12 | Outpatient (CLI) | payer OTHER, SELFPAY ==
[2018-07-03 08:16] VITALS: BMI 39.5
[2019-04-24 08:41] LABS: Vitamin D,25 Hydroxy 30.5 ng/mL (29.95-100.01)
[2019-04-24 08:48] LABS: Thyroid Stim Hormone (TSH) 4.54 uIU/mL (0.358-3.74)
== END ==
PROVIDERS: Family Provider Family Medicine; PCP Family Medicine; Referring Provider Family Medicine; Visit Provider Family Medicine
DX: E03.9 Hypothyroidism, unspecified (principal); E55.9 Vitamin D deficiency, unspecified
CPT/HCPCS: 36415; 82306; 84443

== ENCOUNTER → 2019-07-09 15:27 | Outpatient (CLI) | payer OTHER, SELFPAY ==
--- NOTE | 2019-07-09 15:29 | BI_ITS ---
MAMMOGRAPHY - BILATERAL SCREENING REASON FOR EXAM: Female, 49 years old. Routine annual screening examination. PERTINENT HISTORY: Non-contributory. TECHNIQUE: Digital bilateral breast maribel (3D mammographic acquisition) in the CC and MLO projections. 2-D mediolateral oblique (MLO) and craniocaudad (CC) views of both breasts were obtained. CAD: Full Field Digital Mammography with Computer Added Detection was performed. COMPARISON: Comparison is made with prior study dated July 01, 2018 and January 01, 2017. FINDINGS: Breast Composition: There are scattered areas of fibroglandular density. There are no dominant masses or suspicious calcifications. Stable benign-appearing bilateral axillary lymph nodes. No other significant abnormalities are identified. There has been no significant change since the prior study. BI/SCREEN MAMM (CAD) W/MARIBEL BILAT IMPRESSION: Stable bilateral screening mammogram. Yearly follow-up mammogram recommended. (A) ASSESSMENT CATEGORY: BIRADS Category 2: Benign. A letter regarding these results will be sent to the patient by the facility within 30 days. Approximately 10% of breast cancers are not detected by mammography. A normal mammogram should not delay biopsy of a clinically suspicious abnormality. [id number] Electronically Signed: Keny Brandon, at 8:54 EDT , Service support ,
== END ==
PROVIDERS: Family Provider Family Medicine; PCP Family Medicine; Referring Provider Obstetrics & Gynecology; Visit Provider Obstetrics & Gynecology
DX: Z12.31 Encounter for screening mammogram for malignant neoplasm of breast (principal)
CPT/HCPCS: 77063; 77067

== ENCOUNTER → 2019-07-25 07:39 | Outpatient (CLI) | payer OTHER, SELFPAY ==
[2019-07-25 08:37] LABS: Thyroid Stim Hormone (TSH) 4.85 uIU/mL (0.358-3.74)
== END ==
LOC: LAB.FUTURE 07:40 → LAB 07:43
PROVIDERS: Family Provider Family Medicine; PCP Family Medicine; Referring Provider Family Medicine; Visit Provider Family Medicine
DX: E03.9 Hypothyroidism, unspecified (principal); E55.9 Vitamin D deficiency, unspecified
CPT/HCPCS: 36415; 82306; 84443

== ENCOUNTER 2019-11-12 05:18 | Emergency (ER) | payer OTHER, SELFPAY ==
[2019-11-12 05:18] VITALS: BP 158/100; PULSE 105; RESP 17; TEMP 37.6; O2SAT 94; BMI 38.8
--- NOTE | 2019-11-12 05:23 | RAD_ITS ---
STUDY: X-RAY CHEST REASON FOR EXAM: Female, 49 years old. chest discomfort, cough, runny nose, fever 0f 100.8 at home. was seen for bronchitis recently TECHNIQUE: Frontal and lateral views of the chest. COMPARISON: None. FINDINGS: The lungs are clear and expanded. There is no demonstrated pleural abnormality. Normal size heart. Normal mediastinum and nathanael. Normal visualized pulmonary arteries. Normal visualized aortic arch and descending thoracic aorta. There are multilevel degenerative changes of the visualized thoracic spine. Normal visualized ribs, clavicles, and shoulders. There is no demonstrated abnormality of the visualized soft tissue structures of the upper abdomen. RAD/Chest PA and Lateral IMPRESSION: No evidence for acute cardiopulmonary pathology. Electronically Signed: Robert Benjamin MD at 6:12 EST , Service support ,
--- NOTE | 2019-11-12 05:26 | EKG12_ITS ---
Test Reason : COUGH Blood Pressure : / mmHG Vent. Rate : 091 BPM Atrial Rate : 091 BPM P-R Int : 140 ms QRS Dur : 068 ms QT Int : 332 ms P-R-T Axes : 023 033 016 degrees QTc Int : 408 ms Normal sinus rhythm Normal ECG Confirmed by PRASANTH GARZA ([id number]), senior editor SIDDHARTHA ULLOA ([id number]) on 11/12/2019 2:17:54 PM Referred By: Confirmed By:PRASANTH GARZA
--- NOTE | 2019-11-12 05:40 | ED.RN ---
NO OLD EKGS IN MUSE
--- NOTE | 2019-11-12 05:40 | ED.VISSUMM ---
- ER Visit Summary Date of Service: 11/12/19 Chief Complaint: Cough, fever History of Present Illness: The patient is a 49 F presenting with cough, fever. Symptoms started on . She was diagnosed with bronchitis and started on doxycycline, Tessalon Perles, Mucinex on Sunday. Her last Tylenol dose was 4 hours prior to arrival. She complains of nonproductive cough, fever, body aches. 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 She complains of shortness of breath and chest congestion. She has had rhinorrhea. She denies other complaints. She is not a smoker. Physical Examination: Vitals are stable. Patient is afebrile. Alert no acute distress. HEENT exam is unremarkable. Neck is supple. Lungs are clear and equal bilaterally. Heart is regular rate and rhythm. Abdomen is soft nontender nondistended. Extremities are unremarkable. Skin is warm and dry. No focal neurologic deficit. Remainder of exam is unremarkable. Emergency Department Course and Treatment: Patient was given IV fluids, Toradol, albuterol, Atrovent aerosols. Chest xray shows no evidence for acute cardiopulmonary pathology. CBC, chemistries unremarkable. Troponin is negative. Influenza negative. Pulse ox with ambulation is 96% on room air. Patient is feeling improved in the ED. She is given a prescription for prednisone. Advised to follow-up with her primary care physician. Advised return to ED for worsening complaints. Disposition: Discharge home Impression: Bronchitis This note was generated with [employer] dictation software. It may contain incorrect words, spelling, and punctuation that were not noted in review of the chart prior to signing ED Disposition - Plan for ED Patient: Disposition: Home or Assisted Living Instructions: BRONCHITIS, No Antibiotic (Adult) Prescriptions: Prednisone [Deltasone] 40 mg PO DAILY #10 tab Prescription Printed Referrals: Rock Arita [Primary Care Provider] -
[2019-11-12] MEDS: 0.9% Normal Saline 1,000 ML 999 ML IV (05:45)
[2019-11-12] MEDS: Ipratropium/Albuterol Sulfate 3 ML AMPUL.NEB INHALATION (05:46)
[2019-11-12] MEDS: Ketorolac 30 MG/ML Syringe IV (05:46)
[2019-11-12 05:51] VITALS: BP 158/100; PULSE 107; RESP 17; TEMP 37.6; O2SAT 94
[2019-11-12 05:54] VITALS: PULSE 118; RESP 18
[2019-11-12 06:01] LABS: Absolute Lymphocyte Count 2.69 X10^3/uL (0.83-4.51); Absolute Neutrophil Count 5.5 X10^3/uL (2.0-7.7); Basophil# 0.07 X10^3/uL; Basophil% 0.7 % (0-1); Eosinophils% 3.1 % (0-5); Hematocrit 43.9 % (37-47); Hemoglobin 14.4 g/dL (12.0-15.0); Lymphocyte # 2.69 X10^3/ul (4.0); Lymphocyte % 27.6 % (19-41); Mean Corp Hgb Conc 32.8 g/dL (32-36); Mean Corpuscular Hgb 28.9 pg (27.0-32.0); Mean Corpuscular Volume 88.2 fL (81-99); Mean Platelet Vol. 11.2 fl (6.2-12.0); Monocyte# 1.14 X10^3/uL; Monocyte% 11.7 % (0-10); NRBC Flagged by Analyzer 0 % (0-5); Neutrophil # 5.48 X10^3/uL (2.7-7.7); Neutrophil % 56.3 % (47-70); Platelet Count 296 K/mm3 (150-450); RBC Distribution Width CV 13.4 % (11.6-14.6); RBC Distribution Width SD 43.2 fl (35.1-43.9); Red Blood Count 4.98 M/mm3 (4.2-5.4); White Blood Count 9.7 K/mm3 (4.4-11.0)
[2019-11-12 06:24] LABS: Anion Gap 5 (5-15); BUN 12 mg/dL (7-18); BUN/Creat Ratio 14.7 RATIO (10-20); Calcium,Total 9.2 mg/dL (8.5-10.1); Chloride 104 mmol/L (98-107); Creatinine, Serum 0.82 mg/dL (0.55-1.02); EST Glomerular Filtration Rate 79 mL/min (>60); Est Glom Filt Rate - Afr Amer 96 mL/min (>60); Glucose 118 mg/dL (74-106); Potassium 3.7 mmol/L (3.5-5.1); Sodium Level 137 mmol/L (136-145)
[2019-11-12 06:37] VITALS: O2SAT 94
--- NOTE | 2019-11-12 06:39 | ED.DEP ---
ED Disposition - Plan for ED Patient: Instructions: BRONCHITIS, No Antibiotic (Adult) Prescriptions: Prednisone [Deltasone] 40 mg PO DAILY #10 tablet Referrals: Rock Arita [Primary Care Provider] -
[2019-11-12] MEDS: predniSONE 20 MG Tablet 40 MG PO (06:45)
[2019-11-12 07:01] VITALS: BP 142/79; PULSE 86; RESP 18; O2SAT 96
== END 2019-11-12 07:02 | disposition home or self-care (01) ==
LOC: ED 05:43
PROVIDERS: Emergency Provider Emergency Medicine; PCP Family Medicine
DX: J40 Bronchitis, not specified as acute or chronic (principal); E07.9 Disorder of thyroid, unspecified
CPT/HCPCS: 71046; 80048; 84484; 85025; 87804; 93005; 94640; 96361; 96374; 99284; J7030; A4216

== ENCOUNTER → 2020-03-29 07:30 | Outpatient (CLI) | payer OTHER, SELFPAY ==
[2020-03-29 08:50] LABS: Vitamin D,25 Hydroxy 52.4 ng/mL
[2020-03-29 09:01] LABS: Thyroid Stim Hormone (TSH) 1.93 uIU/mL (0.358-3.74)
== END ==
PROVIDERS: PCP Family Medicine; Referring Provider Family Medicine; Visit Provider Family Medicine
DX: E55.9 Vitamin D deficiency, unspecified (principal); E03.9 Hypothyroidism, unspecified
CPT/HCPCS: 36415; 82306; 84443

== ENCOUNTER 2020-12-09 19:31 | Outpatient (RCR) | payer OTHER, SELFPAY ==
[2020-11-14 08:04] VITALS: BMI 41.0
== END 2021-01-07 23:59 ==
LOC: EMPH 19:31
PROVIDERS: Visit Provider Family Medicine Geriatric Medicine
DX: Z03.818 Encounter for observation for suspected exposure to other biological agents ruled out (principal)
CPT/HCPCS: 87426

== ENCOUNTER → 2021-01-18 | Outpatient (CLI) | payer OTHER, SELFPAY ==
[2020-11-14 08:04] VITALS: BMI 41.0
[2021-01-25 20:52] LABS: HPV APTIMA, High Risk Negative (Negative); HPV Reflexed? YES, CHARGE PATIENT
== END | disposition home or self-care (01) ==
LOC: LABSPEC 01-19 10:51
PROVIDERS: Visit Provider Obstetrics & Gynecology
DX: Z12.4 Encounter for screening for malignant neoplasm of cervix (principal)
CPT/HCPCS: 87624; 88175; G0145

== ENCOUNTER → 2021-03-18 11:58 | Outpatient (CLI) | payer OTHER, SELFPAY ==
[2020-11-14 08:04] VITALS: BMI 41.0
--- NOTE | 2021-03-18 12:00 | BI_ITS ---
MAMMOGRAPHY - BILATERAL SCREENING REASON FOR EXAM: Female, 50 years old. Routine annual screening examination. PERTINENT HISTORY: Non-contributory. TECHNIQUE: Digital bilateral breast maribel (3D mammographic acquisition) in the CC and MLO projections. 2-D mediolateral oblique (MLO) and craniocaudad (CC) views of both breasts were obtained. CAD: Full Field Digital Mammography with Computer Added Detection was performed. COMPARISON: Comparison is made with prior study 07/09/2019 and 07/01/2018. FINDINGS: Breast Composition: There are scattered areas of fibroglandular density. There are no dominant masses or suspicious calcifications. Stable small benign-appearing bilateral axillary lymph nodes. No other significant abnormalities are identified. There has been no significant change since the prior study. BI/SCRN MAMM (CAD)W/MARIBEL BILAT IMPRESSION: Stable bilateral screening mammogram. Yearly follow-up mammogram recommended. (A) ASSESSMENT CATEGORY: BIRADS Category 2: Benign. A letter regarding these results will be sent to the patient by the facility within 30 days. Approximately 10% of breast cancers are not detected by mammography. A normal mammogram should not delay biopsy of a clinically suspicious abnormality. [id number] Electronically Signed: Keny Brandon MD at 13:03 EDT , Service support ,
== END ==
PROVIDERS: PCP Family Medicine; Referring Provider Obstetrics & Gynecology; Visit Provider Obstetrics & Gynecology
DX: Z12.31 Encounter for screening mammogram for malignant neoplasm of breast (principal)
CPT/HCPCS: 77063; 77067

== ENCOUNTER → 2021-03-24 06:08 | Outpatient (CLI) | payer OTHER, SELFPAY ==
[2020-11-14 08:04] VITALS: BMI 41.0
[2021-03-24 08:25] LABS: Thyroid Stim Hormone (TSH) 2.83 uIU/mL (0.358-3.74)
[2021-03-24 08:45] LABS: Vitamin D,25 Hydroxy 29.2 ng/mL
== END ==
PROVIDERS: PCP Family Medicine; Referring Provider Family Medicine; Visit Provider Family Medicine
DX: E03.9 Hypothyroidism, unspecified (principal); E55.9 Vitamin D deficiency, unspecified
CPT/HCPCS: 36415; 82306; 84443

== ENCOUNTER → 2021-06-08 07:38 | Outpatient (CLI) | payer OTHER, SELFPAY ==
--- NOTE | 2021-06-08 07:45 | RAD_ITS ---
STUDY: X-RAY - RIGHT FOOT CLINICAL: Female, 50 years old. Heel pain. Stepped on a rock and twisted foot couple of days ago. TECHNIQUE: 3 view(s) of the foot. COMPARISON: None. FINDINGS: There is a plantar calcaneal spur. Normal talus and tarsal bones. Normal visualized subtalar, talonavicular, calcaneocuboid, tarsal and tarsometatarsal articulations. Normal metatarsi. Normal metatarsophalangeal joint of the great toe. Normal tibial and fibular sesamoid bones. Normal interphalangeal joint of the great toe. Normal phalanges of the great toe. Normal second through fifth metatarsophalangeal joints. Normal interphalangeal joints and phalanges of the lesser toes. The soft tissue structures are unremarkable. RAD/Foot min 3 Views IMPRESSION: Plantar spur. There is no acute fracture or subluxation. Electronically Signed: Carl Lopez DO at 16:19 EDT Tel [phone], Service support ,
== END ==
PROVIDERS: PCP Family Medicine; Referring Provider Family Medicine; Visit Provider Family Medicine
DX: M79.673 Pain in unspecified foot (principal)
CPT/HCPCS: 73630

== ENCOUNTER 2021-09-13 11:14 | Outpatient (RCR) | payer OTHER, SELFPAY ==
[2020-11-14 08:04] VITALS: BMI 41.0
== END 2021-10-10 23:59 ==
LOC: EMPH 11:14
PROVIDERS: PCP Family Medicine; Referring Provider Family Medicine Geriatric Medicine; Visit Provider Family Medicine Geriatric Medicine
DX: Z03.818 Encounter for observation for suspected exposure to other biological agents ruled out (principal)
CPT/HCPCS: 87426

== ENCOUNTER 2021-10-01 13:55 | Outpatient (CLI) | payer OTHER, SELFPAY ==
[2021-10-01 14:01] VITALS: BP 168/100; PULSE 87; RESP 16; TEMP 36.5; O2SAT 99; BMI 40.3
[2021-10-01] MEDS: 0.9% Saline Lock 10 ML Syringe IV (14:04)
[2021-10-01 14:35] VITALS: BP 141/88; PULSE 71; RESP 16; TEMP 36.8; O2SAT 99
[2021-10-01 15:35] VITALS: BP 146/93; PULSE 70; RESP 16; TEMP 36.7; O2SAT 100
== END 2021-10-01 23:59 | disposition home or self-care (01) ==
LOC: MS3OUT 13:55 → MS3 13:56
PROVIDERS: PCP Family Medicine; Referring Provider Nurse Practitioner Adult Health; Visit Provider Nurse Practitioner Adult Health
DX: Z23 Encounter for immunization (principal); U07.1 COVID-19
CPT/HCPCS: J7050; M0245; Q0245; A4216

== ENCOUNTER 2021-11-13 14:50 | Outpatient (CLI) | payer OTHER, SELFPAY ==
--- NOTE | 2021-11-13 15:00 | RAD_ITS ---
STUDY: X-RAY - THORACIC SPINE REASON FOR EXAM: Female, 51 years old. back pain TECHNIQUE: 3 view(s) of the thoracic spine were obtained. COMPARISON: 06/26/2017 FINDINGS: Normal kyphosis of the thoracic spine. There is no substantial scoliosis. There is multilevel endplate spondylosis of the thoracic vertebrae. Normal disc space heights. The soft tissue structures are unremarkable. RAD/Thoracic Spine 3 Views IMPRESSION: Mild diffuse degenerative disc disease. Electronically Signed: Johnny Maurice MD at 15:46 EST ,
== END 2021-11-13 23:59 | disposition home or self-care (01) ==
LOC: LAB 14:53 → RAD 14:53
PROVIDERS: PCP Family Medicine; Visit Provider Nurse Practitioner Family
DX: M51.34 Other intervertebral disc degeneration, thoracic region (principal)
CPT/HCPCS: 72072

== ENCOUNTER → 2022-03-24 | Outpatient (CLI) | payer OTHER, SELFPAY ==
[2022-03-24 07:56] LABS: Vitamin D,25 Hydroxy 44.9 ng/mL
[2022-03-24 08:08] LABS: Thyroid Stim Hormone (TSH) 2.86 uIU/mL (0.358-3.74)
== END | disposition home or self-care (01) ==
LOC: LAB 06:06
PROVIDERS: PCP Family Medicine; Referring Provider Family Medicine; Visit Provider Family Medicine
DX: E55.9 Vitamin D deficiency, unspecified (principal); E03.9 Hypothyroidism, unspecified
CPT/HCPCS: 36415; 82306; 84443

== ENCOUNTER → 2022-05-04 | Outpatient (CLI) | payer OTHER, SELFPAY ==
--- NOTE | 2022-05-04 07:36 | BI_ITS ---
MAMMOGRAPHY - BILATERAL SCREENING REASON FOR EXAM: Female, 51 years old. Routine annual screening examination. PERTINENT HISTORY: Non-contributory. TECHNIQUE: Digital bilateral breast maribel (3D mammographic acquisition) in the CC and MLO projections. 2-D mediolateral oblique (MLO) and craniocaudad (CC) views of both breasts were obtained. CAD: Full Field Digital Mammography with Computer Added Detection was performed. COMPARISON: Comparison is made with prior study dated 03/18/2021 and 07/09/2019. FINDINGS: Breast Composition: There are scattered areas of fibroglandular density. There are no dominant masses or suspicious calcifications. Stable small benign appearing bilateral axillary lymph nodes. No other significant abnormalities are identified. There has been no significant change since the prior study. BI/SCRN MAMM (CAD)W/MARIBEL BILAT IMPRESSION: Stable bilateral screening mammogram. Yearly follow-up mammogram recommended. (A) ASSESSMENT CATEGORY: BIRADS Category 2: Benign. A letter regarding these results will be sent to the patient by the facility within 30 days. Approximately 10% of breast cancers are not detected by mammography. A normal mammogram should not delay biopsy of a clinically suspicious abnormality. [id number] Electronically Signed: Keny Brandon MD at 8:40 EDT ,
== END | disposition home or self-care (01) ==
LOC: OPBI 07:34
PROVIDERS: PCP Family Medicine; Visit Provider Family Medicine
DX: Z12.31 Encounter for screening mammogram for malignant neoplasm of breast (principal)
CPT/HCPCS: 77063; 77067

== ENCOUNTER 2022-06-05 03:46 | Emergency (ER) | payer OTHER, SELFPAY ==
[2022-06-05 03:49] VITALS: BP 181/96; PULSE 95; RESP 16; TEMP 35.9; O2SAT 96; BMI 42.4
--- NOTE | 2022-06-05 04:01 | ED.VIS.LOWEX ---
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 She states that it was very painful and she tried taking Tylenol and ibuprofen as well as compressing with an Jordy wrap. She states initially she was walking around but she could not walk down to the emergency room because it hurt too badly. She also feels as if her leg is just giving out on her when she is trying to bear weight on it. She denies any numbness or tingling. No bruising or swelling. [facility] Medical History Hyperthyroidism Home Medications levothyroxine 50 mcg tablet (Synthroid) 88 mcg PO DAILY 09/17/17 [History Last Taken Unknown] multivitamin (Daily Multi-Vitamin tablet) 1 tab PO QAM 09/17/17 [History Last Taken Unknown] benzonatate 100 mg capsule 100 mg PO TID PRN Cough 11/12/19 [History Last Taken Unknown] lorazepam 1 mg tablet 1 mg PO TID PRN Sleep 11/12/19 [History Last Taken Unknown] naproxen 500 mg tablet 500 mg PO BID PRN PRN Pain Or Fever 11/12/19 [History Last Taken Unknown] ergocalciferol (vitamin D2) 1,250 mcg (50,000 unit) capsule 5,000 unit PO DAILY 11/14/20 [History Last Taken Unknown] escitalopram oxalate 10 mg tablet (Lexapro) 10 mg PO QDAY 11/14/20 [History Last Taken Unknown] cyclobenzaprine 10 mg tablet 10 mg PO TID PRN muscle spasm #30 tabs 11/13/21 [Rx Last Taken Unknown] methylprednisolone 4 mg tablets in a dose pack (Medrol (Jonny)) See Rx Instructions PO PER PKG DIR #21 tabs 11/13/21 [Rx Last Taken Unknown] Allergy/AdvReac Type Severity Reaction Status Date / Time No Known Allergies Allergy Verified 06/05/22 04:04 Social History Smoking Status: Never smoker ROS ROS ED Constitutional Constitutional ED: Denies chills, fever(s) or sweats Eyes Eyes: Denies blurry vision or change in vision ENT ENT ED: Denies ear pain or sore throat Cardiovascular Cardiovascular: Denies chest pain, palpitations or racing heartbeat Respiratory/Chest Respiratory/Chest: Denies cough, dyspnea or sputum Gastrointestinal Gastrointestinal: Denies abdominal pain, constipation, diarrhea, nausea or vomiting Genitourinary Genitourinary ED: Denies dysuria, hematuria or urinary frequency Musculoskeletal Musculoskeletal: Reports other Details: Left knee pain ; Denies myalgias or neck pain Integumentary Denies abscess, Abrasions or rash Neurologic Neurologic: Denies headache(s), paresthesias or weakness Psychiatric Psychiatric: Denies anxiety, depression, suicidal ideation or suicidal thoughts Endocrine Endocrinology: Denies polydipsia or polyuria EXAM Physical Exam Const Vital Signs: 06/05/22 03:49 Temperature 96.7 F L Temperature Source Oral Pulse Rate 95 Respiratory Rate 16 Blood Pressure 181/96 H Blood Pressure Mean 124 Pulse Ox 96 Oxygen Delivery Method Room Air Positive well nourished General Appearance ED: NAD HEENT Reports moist mucous membranes Eyes PERRL Resp normal respiratory effort Cardio regular rate and regular rhythm Extremity Extremity Narrative: Tenderness to palpation over the right medial joint line. There is pain and slight ligamentous laxity elicited with valgus strain to the right knee in extension. Anterior and posterior drawer normal. Neuro oriented x3 Sensorium / Orientation: alert Motor Exam: strength 5/5 throughout Psych mental status grossly normal Skin no wounds Lesions: no lesions Rashes: no rashes MDM MDM MDM Narrative Medical decision making narrative: Patient presenting with right medial knee pain. 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 She feels unstable when she tries to ambulate like it is coming out from under her. She does have pain elicited with valgus stress and there is slight ligamentous laxity. When stress is elicited in 30 degrees of flexion there is also an audible pop. Patient states is felt good. She also has pain on the medial joint line just to palpation. I suspect there might be a meniscal tear as well as possible MCL tear. My interpretation of the 4 views of the right knee show no acute fractures. There is some arthritic changes here. The radiologist interprets this and agree. Patient will be put in a knee immobilizer to help her with stability. She is given follow-up with the now clinic. Impression: 1. Right knee sprain 2. Right knee meniscal tear 3. Possible right MCL tear Lab Data Attestation: I reviewed the patient's lab results. Radiography Diagnostic Testing: Clinical Impression(s) from Imaging Studies Knee X-Ray 06/05/22 04:08 IMPRESSION: 1. Mild osteoarthritic changes, most prominent at the peripheral aspect of the medial femorotibial compartment. Few tiny osteophytes at the intercondylar notch. No other significant arthritic changes. 2. No significant joint effusion. Electronically Signed: Calos Garcia MD at 4:20 EDT , ADDENDUM: 06/05/22 0437 IMPRESSION: undefined Discharge Plan Triage Chief Complaint: Lower Extremity Injury ED Provider: Arturo Waterman Dx/Rx/DC Orders Instructions: MCL Sprain, ED Meniscal Injury Knee Poss, ED Knee Sprain Prescriptions: No Action multivitamin [Daily Multi-Vitamin] tablet 1 tab PO QAM levothyroxine [Synthroid] 50 mcg tablet 88 mcg PO DAILY escitalopram oxalate [Lexapro] 10 mg tablet 10 mg PO QDAY methylprednisolone [Medrol (Jonny)] 4 mg tablets,dose pack See Rx Instructions PO PER PKG DIR Qty: 21 0RF Rx Instructions: PO PER PKG DIR cyclobenzaprine 10 mg tablet 10 mg PO TID PRN (Reason: muscle spasm) Qty: 30 0RF benzonatate 100 MG capsule 100 mg PO TID PRN (Reason: Cough) lorazepam 1 MG tablet 1 mg PO TID PRN (Reason: Sleep) naproxen 500 MG tablet 500 mg PO BID PRN PRN (Reason: Pain Or Fever) ergocalciferol (vitamin D2) 1,250 mcg (50,000 unit) capsule 5,000 unit PO DAILY Primary Care Provider: Rock Arita Referrals: Rock Arita MD [Primary Care Provider] - Disposition Disposition: Home, Self Care
--- NOTE | 2022-06-05 04:08 | RAD_ITS ---
EXAM: XR RIGHT KNEE, 3 VIEWS CLINICAL INDICATION: pain TECHNIQUE: Three views of the right knee. This report was created using [employer] report generation technology. COMPARISON: None. FINDINGS: See Impression. RAD/Knee 4 or More Views IMPRESSION: 1. Mild osteoarthritic changes, most prominent at the peripheral aspect of the medial femorotibial compartment. Few tiny osteophytes at the intercondylar notch. No other significant arthritic changes. 2. No significant joint effusion. Electronically Signed: Calos Garcia MD at 4:20 EDT ,
[2022-06-05 05:03] VITALS: BP 188/85; PULSE 88; RESP 16
== END 2022-06-05 05:04 | disposition home or self-care (01) ==
LOC: ED 04:38
PROVIDERS: Emergency Provider Student in an Organized Health Care Education/Training Program; PCP Family Medicine; Visit Provider Student in an Organized Health Care Education/Training Program
DX: S83.241A Other tear of medial meniscus, current injury, right knee, initial encounter (principal); X58.XXXA Exposure to other specified factors, initial encounter; Y92.239 Unspecified place in hospital as the place of occurrence of the external cause; Y93.89 Activity, other specified; Y99.0 Civilian activity done for income or pay
CPT/HCPCS: 73564; 99283

== ENCOUNTER → 2022-06-17 | Outpatient (CLI) | payer OTHER, SELFPAY ==
--- NOTE | 2022-06-17 08:18 | MRI_ITS ---
STUDY: MRI RIGHT KNEE REASON FOR EXAM: Female, 51 years old. History, Signs T Symptoms R knee meniscal tear Technologist Notes Other, PAIN RIGHT KNEE MEDIALLY. iNJURED MOVING PATIENT ON 06/05/22. TECHNIQUE: Standardized fat and water weighted pulse sequences were obtained in all 3 orthogonal planes. COMPARISON: Right knee x-ray dated June 05, 2022 FINDINGS: A degenerative tear with swelling and free edge radial tearing of the body of the medial meniscus is present. A second small horizontal tear is present at the periphery of the posterior horn of medial meniscus and associated with parameniscal cysts measuring 1.79 cm at the periphery of the tear. There is also diffuse intrasubstance signal abnormality and thinning throughout the posterior of the medial meniscus as well. There is diffuse, less than 50% thickness articular cartilage loss of the medial femorotibial compartment. Normal medial femoral condyle and tibial plateau. Normal medial collateral ligamentous complex (MCL). Normal distal semimembranosus, gracilis and semitendinosus tendons. Normal lateral meniscus. Normal hyaline cartilage of the lateral femorotibial compartment. Normal lateral femoral condyle and tibial plateau. Normal proximal tibiofibular articulation. Normal lateral collateral (fibular) ligament. Normal popliteus tendon. Normal biceps femoris tendon. Normal anterior cruciate ligament (ACL). Normal posterior cruciate ligament (PCL). Normal congruent patellofemoral articulation. There is diffuse, less than 50% thickness articular cartilage loss of the patellofemoral compartment. Normal medial and lateral patellar retinaculum. Normal quadriceps tendon. Normal patellar tendon. Normal Hoffa''s fat pad. Small knee joint effusion noted. The soft tissues are unremarkable. The otherwise visualized osseous structures are unremarkable. MRI/Lower Ext Joint Only (Routine) IMPRESSION: 1. A degenerative tear with swelling and free edge radial tearing of the body of the medial meniscus is present. A second small horizontal tear is present at the periphery of the posterior horn of medial meniscus and associated with parameniscal cysts measuring 1.79 cm at the periphery of the tear. Electronically Signed: Sam Richardson MD at 15:25 EDT ,
== END | disposition home or self-care (01) ==
LOC: MRI 08:04
PROVIDERS: PCP Family Medicine; Referring Provider Physician Assistant Surgical; Visit Provider Physician Assistant Surgical
DX: S83.241A Other tear of medial meniscus, current injury, right knee, initial encounter (principal); X58.XXXA Exposure to other specified factors, initial encounter
CPT/HCPCS: 73721

== ENCOUNTER 2022-10-10 12:00 | Outpatient (RCR) | payer OTHER, SELFPAY ==
--- NOTE | 2022-08-28 08:50 | HP.PTEVAL ---
Patient's Visit Information AUSTIN REED is a 52 year old F referred to Physical Therapy by Dr. Darryn Longo DO with a diagnosis of R knee sprain. Date of Evaluation: 08/28/22 Physical Therapist: Neo Farfan, DPT, OCS, CSCS - Visit Plan Frequency: 2-3x /Week Duration: 4-6 Weeks Plan: 2-3x/week for 4-6 weeks. Start ROM, rollout quad and HS and stretch those. NWB to WB strength to HEP. gait and stair progression to tolerance. 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 That was Jun 05, went to ER. been dealing with workers comp since. Had MRI begin of June and has 2 meniscal tears. Sent to [facility], 10# weight restriction and is in brace on light duty and was using a walker for 6 weeks. Surgery recommended. Back to [facility] 08/17 and still 10# weight restriction for right now. Had hearing in August for surgery. Saw Donta a few days later and recommended therapy. Feels a lot better and not alot of pain. Needs to figure out if it is healing or just better cause not weight bearing. Is to stop with any sudden severe pain. Back 09/28. Light duty until then. Is to wear brace when walking. Pain in last two weeks is nil. But knee doesn't feel right, stiff. Sleep is OK. Works in [employer] but is light duty. basic ADLs are getting done, sock on R leg is using sock aide. Hobbies: Travel. Was walking all over [facility] the week before this happened. Limited walking. - Pain R knee Pain Intensity (Out of 10): 0 Pain Intensity Range: 0, 1 - Objective Walks with antalgia R knee avoiding full extension, walks I, trasnfers I, steps reciprocally requiring railing and poor confidence in R LE. Good balance. AROM r knee -2 to 105. L 0-120. HS and quad mod tight R and min tight L. Hip and ankle AROM WFL and without pain. reflexes 1/3 patella and achilles. sensation LE WNL to gross light touch. Strength hip abd and ext 3+, flexion 3+ R and 4- L, knee extension 4- R with pain in full extension, 4 L, knee flexion painful R 3+ and 4 R. ankle strength 5/5 B. + bounce home test R, - anterior drawer, - jonathon, - post sag, - patellar grind. Holds R knee in slight flexion but can full extend it when forced. Able to get 110 AROM R knee flexion aftrer heel slides today. - Balance/Special Test Scores Lower Extremity Functional Score: 46 - Goals Goal 1:: 0-120 AROM R knee without pain Goal Time Frame: 2-4 Weeks Goal 2:: Walk without antalgia, steps reciprocally without pain or rail Goal Time Frame: 4-6 Weeks Goal 3:: Patient feel 100% better and ready to travel Goal Time Frame: 4-6 Weeks Goal 4:: Able to do full duty at work without pain Goal Time Frame: 4-6 Weeks - Rehabilitation Potential Physical Therapy Diagnosis: R knee pain and sprain, likely meniscal pathology Rehabilitation Potential: Fair - Anticipated Interventions Patient/Client Instruction: Educate patient on: Condition, Plan of Care For the Purpose of:: To decrease pain, To increase ROM, To improve nutrient delivery to tissue, To improve muscle performance and motor function, To increase tolerance to activity/condition/position, To improve ability of physical actions for home/community/work/leisure, To improve gait and locomotor functions Therapeutic Exercise to Include: Strength training, Postural training, Flexibilty training, Gait and locomotor training For the Purpose of:: To decrease pain, To decrease swelling/inflammation, To improve nutrient delivery to tissue, To improve muscle performance and motor function, To increase tolerance to activity/condition/position Manual Therapy Techniques to Include: Mobilization, Passive ROM, Soft tissue mobilization For the Purpose of:: To decrease pain, To increase ROM Cryotherapy (ice pack, ice massage): Yes For the Purpose of:: To decrease swelling/inflammation Thank you for the opportunity to evaluate your patient. For Medicare and Medicare HMO plans, please review the plan of care and approve it. It will need to be FAXED BACK to us at [phone] for Medicare purposes. For Medicare only, by signing this I certify the plan of care. Please let me know if there are questions or concerns regarding this plan of care. Physician Signature: Date:
--- NOTE | 2022-09-25 09:22 | HP.PTREVAL_ITS ---
Dr. Darryn Longo, DO, It has been my pleasure to treat AUSTIN REED over the last 10 visits for R knee sprain. Please see the progress note below for an update on the physical therapy plan of care! Subjective: 90% better. Stairs coming down still painful and stiff. Still has 10# lifting restriction and wears brace. To doctor on . Only walking a little at home without it. ROM feels good but stiff getting out of bed. Sleep is good, still restricted at work. Objective/Function: 0-120 AROM without pain but end range flexion pressure still hesitant and bounce home. Walks hesitantly on R LE but no antalgia. still avoids pivotting and more confident with brace on. steps reciprocal with one rail, weak and tight slightly descending. Plan Plan: 2x/week for 2 weeks to ensure home strength and start work sim exercises of pushing cart, pivotting, steps with weights, pivotting and lateral/crossover mvoements for confidence. Balance/Gait/Functional tests - Balance/Special Test Scores Lower Extremity Functional Score: 56 Goals Goal 1:: 0-120 AROM R knee without pain Goal Time Frame: 2-4 Weeks Goal Progress: Goal Met Goal 2:: Walk without antalgia, steps reciprocally without pain or rail Goal Time Frame: 4-6 Weeks Goal Progress: Progressing Goal 3:: Patient feel 100% better and ready to travel Goal Time Frame: 4-6 Weeks Goal Progress: 90% Goal 4:: Able to do full duty at work without pain Goal Time Frame: 4-6 Weeks Goal Progress: Progressing Anticipated Interventions Patient/Client Instruction: Educate patient on: Condition, Plan of Care For the Purpose of:: To decrease pain, To increase ROM, To improve nutrient de livery to tissue, To improve muscle performance and motor function, To increase tolerance to activity/condition/position, To improve ability of physical actions for home/community/work/leisure, To improve gait and locomotor functions Therapeutic Exercise to Include: Strength training, Postural training, Flexibilty training, Gait and locomotor training For the Purpose of:: To decrease pain, To decrease swelling/inflammation, To improve nutrient delivery to tissue, To improve muscle performance and motor function, To increase tolerance to activity/condition/position Manual Therapy Techniques to Include: Mobilization, Passive ROM, Soft tissue mobilization For the Purpose of:: To decrease pain, To increase ROM Cryotherapy (ice pack, ice massage): Yes For the Purpose of:: To decrease swelling/inflammation Please do not hesitate to contact me at [phone] by phone or if you have questions or concerns regarding this new plan of care! Sincerely, Neo Farfan, DPT, OCS, CSCS
--- NOTE | 2022-10-10 12:22 | HP.PTREVAL_ITS ---
Dr. Darryn Longo, DO, It has been my pleasure to treat AUSTIN REED over the last 14 visits for R knee sprain. Please see the progress note below for an update on the physical therapy plan of care! Subjective: More aggressive HEP went well. The weather may give her a sharp pain now and then. Was fine over the weekend. Light duty yesterday. 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 Ready to try it. Took out trash and carried stuff yesterday without issues. Activities at home pretty normal, just cautious. Pondering travelling soon, [place] and knee would not hold her back. To doctor in two weeks. Objective/Function: 0-120 AROM symmetrical with L side. SLR without lag. Walks without antalgia today, steps reciprocally without pain. Slow Sideshuffle feels weird on R but not painful. Overall doing well. Could benefit from gym program. 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 Pt to call prior if symptoms worsen with full duty work. Balance/Gait/Functional tests - Balance/Special Test Scores Lower Extremity Functional Score: 56 Goals Goal 1:: 0-120 AROM R knee without pain Goal Time Frame: 2-4 Weeks Goal Progress: Goal Met Goal 2:: Walk without antalgia, steps reciprocally without pain or rail Goal Time Frame: 4-6 Weeks Goal Progress: Goal Met Goal 3:: Patient feel 100% better and ready to travel Goal Time Frame: 4-6 Weeks Goal Progress: 90% Goal 4:: Able to do full duty at work without pain Goal Time Frame: 4-6 Weeks Goal Progress: Progressing Anticipated Interventions Patient/Client Instruction: Educate patient on: Condition, Plan of Care For the Purpose of:: To decrease pain, To increase ROM, To improve nutrient delivery to tissue, To improve muscle performance and motor function, To increase tolerance to activity/condition/position, To improve ability of physical actions for home/community/work/leisure, To improve gait and locomotor functions Therapeutic Exercise to Include: Strength training, Postural training, Flexibilty training, Gait and locomotor training For the Purpose of:: To decrease pain, To decrease swelling/inflammation, To improve nutrient delivery to tissue, To improve muscle performance and motor function, To increase tolerance to activity/condition/position Manual Therapy Techniques to Include: Mobilization, Passive ROM, Soft tissue mobilization For the Purpose of:: To decrease pain, To increase ROM Cryotherapy (ice pack, ice massage): Yes For the Purpose of:: To decrease swelling/inflammation Please do not hesitate to contact me at [phone] by phone or if you have questions or concerns regarding this new plan of care! Sincerely, Neo Farfan, DOMINIKT, OCS, CSCS
--- NOTE | 2022-10-30 09:09 | HP.PTDCSUM_ITS ---
It has been my pleasure to treat AUSTIN REED referred by Dr. Darryn Longo DO, with the diagnosis of R knee sprain for a total of 15 visit(s). Discharge Date: 10/30/22 Please see the following information for a summary of their discharge status. Subjective: Doing fine. No problems. saw Donta on and is released. Looking good. HS worked 2 weeks of 12 hour shifts and no issues. No lasting pain. [place] weird at times but only transiently. Going to [place] next week. R knee Pain Intensity (Out of 10): 0 % Improvement: 90 Objective/Function: machines went well, needed set up today but feels like she can figure it out on her own without further visits. Goal 1:: 0-120 AROM R knee without pain Goal Progress: Goal Met Goal 2:: Walk without antalgia, steps reciprocally without pain or rail Goal Progress: Goal Met Goal 3:: Patient feel 100% better and ready to travel Goal Progress: 90% Goal 4:: Able to do full duty at work without pain Goal Progress: Goal Met Plan: d/c, list given for I if patient wishes. Discharge Comments: Doing well and will contemplate continuing gym ex on her own, list given. If there are questions or concerns regarding this patient's physical therapy, please feel free to call me at [phone]. Thank you for the referral of this patient. Sincerely, Neo Farfan, DPT, OCS, CSCS Balance/Gait/Functional tests - Balance/Special Test Scores Lower Extremity Functional Score: 60
== END 2022-10-10 19:00 | disposition home or self-care (01) ==
LOC: PT 12:00
PROVIDERS: PCP Family Medicine; Referring Provider Orthopaedic Surgery; Visit Provider Orthopaedic Surgery
DX: S83.8X1D Sprain of other specified parts of right knee, subsequent encounter (principal)
CPT/HCPCS: 97110; 97140; 97161; 97530

== ENCOUNTER → 2023-03-20 | Outpatient (CLI) | payer OTHER, SELFPAY ==
--- NOTE | 2023-03-20 13:34 | US_ITS ---
INDICATION: AUB EXAMINATION: Ultrasound US Pelvis Non OB Complete With Transvaginal Imaging COMPARISON: Abdominal CT 08/11/2014. FINDINGS: 71 grayscale ultrasound images of the pelvis obtained both transabdominally and transvaginally. In addition dedicated ovarian color Doppler and Doppler waveform interrogation was performed. UTERUS: Uterus measures : 8.0 x 5.2 x 4.2 cm. Endometrial thickness of 0.6 cm. Scattered heterogeneous hypoechoic uterine lesions measuring up to 1.9 cm in the submucosal region, 1.5 cm in the subserosal region, and 1.6 cm in the myometrium. ADNEXA: Flow is documented to unremarkable appearing bilateral ovaries by color Doppler as well as Doppler waveform. Adequately distended urinary bladder without obvious abnormality. No significant free fluid. US/Pelvic (Non ) IMPRESSION: Fibroid uterus. Electronically Signed: Néstor Rodríguez MD at 6:03 EDT ,
== END | disposition home or self-care (01) ==
LOC: OPUS 13:32
PROVIDERS: PCP Family Medicine; Referring Provider Obstetrics & Gynecology; Visit Provider Obstetrics & Gynecology
DX: N93.9 Abnormal uterine and vaginal bleeding, unspecified (principal)
CPT/HCPCS: 76830; 76856

== ENCOUNTER → 2023-03-29 | Outpatient (CLI) | payer OTHER, SELFPAY ==
[2023-03-29 14:58] LABS: Vitamin D,25 Hydroxy 41.2 ng/mL
[2023-03-29 15:03] LABS: Thyroid Stim Hormone (TSH) 2.89 uIU/mL (0.358-3.74)
== END | disposition home or self-care (01) ==
LOC: LAB 12:43
PROVIDERS: PCP Family Medicine; Visit Provider Family Medicine
DX: E03.9 Hypothyroidism, unspecified (principal); E55.9 Vitamin D deficiency, unspecified
CPT/HCPCS: 36415; 82306; 84443

== ENCOUNTER → 2023-07-02 | Outpatient (CLI) | payer OTHER, SELFPAY ==
--- NOTE | 2023-07-02 14:55 | BI_ITS ---
MAMMOGRAPHY - BILATERAL SCREENING REASON FOR EXAM: Female, 53 years old. Routine annual screening examination. PERTINENT HISTORY: Non-contributory. TECHNIQUE: Digital bilateral breast maribel (3D mammographic acquisition) in the CC and MLO projections. 2-D mediolateral oblique (MLO) and craniocaudad (CC) views of both breasts were obtained. CAD: Full Field Digital Mammography with Computer Added Detection was performed. COMPARISON: Comparison is made with prior examination May 04, 2022 and March 18, 2021. FINDINGS: Breast Composition: There are scattered areas of fibroglandular density. There are no dominant masses or suspicious calcifications. Stable small benign appearing bilateral axillary lymph nodes. No other significant abnormalities are identified. There has been no significant change since the prior study. BI/SCRN MAMM (CAD)W/MARIBEL BILAT IMPRESSION: Stable bilateral screening mammogram. Yearly follow-up mammogram recommended. (A) ASSESSMENT CATEGORY: BIRADS Category 2: Benign. A letter regarding these results will be sent to the patient by the facility within 30 days. Approximately 10% of breast cancers are not detected by mammography. A normal mammogram should not delay biopsy of a clinically suspicious abnormality. [id number] Electronically Signed: Keny Brandon MD at 15:47 EDT ,
== END | disposition home or self-care (01) ==
LOC: OPBI 14:55
PROVIDERS: PCP Family Medicine; Referring Provider Obstetrics & Gynecology; Visit Provider Obstetrics & Gynecology
DX: Z12.31 Encounter for screening mammogram for malignant neoplasm of breast (principal)
CPT/HCPCS: 77063; 77067

== ENCOUNTER → 2023-10-23 | Outpatient (CLI) | payer OTHER, SELFPAY ==
--- NOTE | 2023-10-23 17:00 | RAD_ITS ---
INDICATION: LEFT HIP PAIN EXAMINATION/TECHNIQUE: X-RAY - XR Hip Unilateral with Pelvis when performed; 2-3 Views COMPARISON: No relevant prior comparison study available FINDINGS: PELVIC BONES: No displaced fracture, destructive or sclerotic lesions. Note that overlapping bowel shadows may however obscure fine detail. Sacroiliac joints are unremarkable. No widening of the pubic symphysis. HIPS: The articular structures are unremarkable. No displaced fracture seen in this frontal view. SOFT TISSUES: No soft tissue swelling or gas. RAD/HIP, UNI W/ Pelvis 2-3 Views IMPRESSION: No evidence of displaced pelvic or hip fracture. Electronically Signed: Jacques Pickett MD at 18:47 EST ,
--- OUTSIDE RECORDS SUMMARY | 2023-10-23 20:18 | XMS RPT_ITS | CCD ---
Author Name Unknown Address [address] [place] [address] Organization [facility] Care Team Providers Care Director Process Engineering Name Role Phone Warren Perea Unavailable Now Nurse Unavailable Unavailable Carlos Cox Unavailable DosLenka cullen DC Unavailable ROCK ARITA Unavailable Unavailable ROCK ARITA Unavailable Unavailable ROCK ARITA Unavailable Unavailable ROCK ARITA Unavailable Unavailable PROVIDER, UNKNOWN Unavailable Unavailable PROVIDER, UNKNOWN Unavailable Unavailable PROVIDER, UNKNOWN Unavailable Unavailable Juan J LEBRON, Rock Kan Unavailable Avani LEBRON ([place]), Dr. Mora Unavailable [facility] Physical Therapy Unavailable Phyllis DIAZ, Dr. Quin Bagley Unavailable [phone] Dr. Jean Carlos Del Rosario MDTom) Unavailable Dr. Cindy Davis MD Unavailable Odette Araujo MD Unavailable Milena Johns LPN Unavailable Rakesh COLLIER, Eveline Champion Unavailable Rajwinder Marvin LPN Unavailable Unavailable Quin Joseph LPN Unavailable Unavailable Alin Argueta MD Unavailable Danielle Call PA-C Unavailable Luca Downs PA-C Unavailable Yareli KEE, Nathalie Rolon Unavailable Unavail able Kimberly Marti LPN Unavailable Unavailable Romeo RN, Danielle A Unavailable Unavaila ble Baldemar REFORESTATION WORKER, Cortney Unavailable Unavailable Denny REFORESTATION WORKER, Veronika Unavailable Unavailable Huan COLLIER, Roxy Akira Unavailable [phone] Edgar REFORESTATION WORKER, Odette Armstrong Unavailable Unavailab reilly Nieves REFORESTATION WORKER, Ana Baron Unavailable Unavailab Jack Us MD Unavailable [phone] Vess REFORESTATION WORKER, Chanel L Unavailable Unavailable Welianeerwellington REFORESTATION WORKER, Patricia Unavailable Unavailabl e Edgard REFORESTATION WORKER, Maria Teresa N Unavailable Unavaila ble Zaugg REFORESTATION WORKER, Soledad Unavailable Unavailable Unavailable Unavailable Medications Current Medications Medication Drug Class(es) Dates Sig (Normalized) Sig (Original) [id number] 200 actuat albuterol 0.09 mg/actuat metered dose inhaler (4 sources) beta2-Adrenergic Agonist Start: 11-14-2019 take 2 puff(s) by inhalation every four hours as needed for cough Ventolin HFA 108 (90 Base) MCG/ACT Inhalation Aerosol Solution ; 2 (two) puff(s) every four hours, as needed for cough/wheeze for 0 days Quantity: 1 {Inhaler} Refills: 0 Ordered: 14-Nov-2019 MD Rock Arita Start: 14-Nov-2019 Comments: Medication taken as needed. Completed/Discontinued Medications Medication Drug Class(es) Dates Sig (Normalized) Sig (Original) amoxicillin 500 mg oral capsule (4 sources) Penicillin-class Antibacterial Start: 10-30-2013 End: 11-06-2013 take 1 capsule by mouth three times daily AMOXICILLIN, 500MG (Oral Capsule) ; 1 (one) Capsule three times daily for 7 days Quantity: 21 {Capsule} Refills: 0 Ordered: 30-Oct-2013 MD Odette Araujo Start: 30-Oct-2013 End: 06-Nov-2013 Status: Inactive amoxicillin 875 mg / clavulanate 125 mg oral tablet (8 sources) Penicillin-class Antibacterial Start: 09-01-2016 End: 09-11-2016 take 1 tablet by mouth twice daily at mealtime Augmentin 875-125 MG Oral Tablet ; 1 Tab two times daily for 10 days Quantity: 20 {Tablet} Refills: 0 Ordered: 01-Sep-2016 MD Alin Argueta Start: 01-Sep-2016 End: 11-Sep-2016 Status: Inactive Comments: Take with food Problems Active Problems Problem Classification Problem Date Documented Date Episodic/Chronic Abdominal pain (20 sources) Pain in female pelvis; Translations: [Pelvic and perineal pain] 04-11-2023 Episodic Acute bronchitis (16 sources) Acute bronchitis 07-15-2013 Episodic Allergic reactions (8 sources) Contact dermatitis and other eczema due to plants [except food] 04-01-2014 Episodic Anxiety disorders (20 sources) Generalized anxiety disorder; Translations: [Generalized anxiety disorder] 04-11-2023 Chronic Chronic obstructive pulmonary disease and bronchiectasis (20 sources) Bronchitis; Translations: [Bronchitis, not specified as acute or chronic] 04-11-2023 Episodic Diseases of white blood cells (8 sources) Leukocytosis; Translations: [Elevated white blood cell count, unspecified] 04-11-2023 Chronic Essential hypertension (10 sources) Hypertensive disorder; Translations: [Essential (primary) hypertension] Onset: 06-26-2017 06-26-2017 Chronic Genitourinary symptoms and ill-defined conditions (12 sources) Dysuria; Translations: [Dysuria] 11-04-2018 Episodic Immunizations and screening for infectious disease (8 sources) Requires diphtheria, tetanus and pertussis vaccination; Translations: [Encounter for immunization] 04-11-2023 Episodic Malaise and fatigue (8 sources) Fatigue; Translations: [Other fatigue] 05-29-2016 Episodic Nonspecific chest pain (8 sources) Chest pain; Translations: [Chest pain, unspecified] 04-11-2023 Episodic Nutritional deficiencies (20 sources) Vitamin D deficiency; Translations: [Vitamin D deficiency, unspecified] 04-11-2023 Chronic Other aftercare (4 sources) Drug indicated; Translations: [Other usp (current) drug therapy] 09-12-2010 Episodic Other connective tissue disease (12 sources) Heel pain; Translations: [Pain in unspecified foot] 04-11-2023 Episodic Other connective tissue disease (4 sources) Pain in left arm; Translations: [Pain in left arm] 05-27-2015 Episodic Other ear and sense organ disorders (4 sources) Otitis externa of right ear; Translations: [Unspecified otitis externa, right ear] 11-12-2020 Chronic Other ear and sense organ disorders (12 sources) Otalgia, right ear; Translations: [Otalgia, unspecified] 04-11-2023 Episodic Other injuries and conditions due to external causes (8 sources) Puncture wound - injury; Translations: [Other injury of unspecified body region, initial encounter] 04-11-2023 Episodic Other liver diseases (8 sources) Elevated liver enzymes level; Translations: [Abnormal levels of other serum enzymes] 04-11-2023 Episodic Other non-traumatic joint disorders (4 sources) Hip pain; Translations: [Pain in left hip] 10-23-2023 Episodic Other nutritional; endocrine; and metabolic disorders (16 sources) Body mass index 30+ - obesity; Translations: [Obesity, unspecified] 04-11-2023 Chronic Other screening for suspected conditions (not mental disorders or infectious disease) (20 sources) Patient encounter status; Translations: [Encounter for screening for lipoid disorders] 04-11-2023 Episodic Other skin disorders (8 sources) Sebaceous cyst 07-15-2013 Episodic Other upper respiratory disease (8 sources) Seasonal allergy; Translations: [Other seasonal allergic rhinitis] 04-11-2023 Chronic Other upper respiratory disease (8 sources) Ulcer of larynx; Translations: [Other diseases of larynx] 04-14-2014 Episodic Other upper respiratory infections (8 sources) Sinusitis; Translations: [Chronic sinusitis, unspecified] 11-10-2019 Chronic Other upper respiratory infections (16 sources) Acute frontal sinusitis; Translations: [Acute frontal sinusitis, unspecified] 12-25-2014 Episodic Pneumonia (except that caused by tuberculosis or sexually transmitted disease) (8 sources) Pneumonia; Translations: [Pneumonia, unspecified organism] 11-18-2019 Episodic Residual codes; unclassified (20 sources) Insomnia; Translations: [Insomnia, unspecified] 04-11-2023 Episodic Spondylosis; intervertebral disc disorders; other back problems (10 sources) Cervical radiculopathy; Translations: [Radiculopathy, cervical region] Onset: 06-26-2017 06-26-2017 Chronic Spondylosis; intervertebral disc disorders; other back problems (20 sources) Backache; Translations: [Dorsalgia, unspecified] 04-11-2023 Episodic Sprains and strains (8 sources) Strain of thoracic region; Translations: [Strain of muscle and tendon of back wall of thorax, initial encounter] 06-19-2017 Episodic Thyroid disorders (20 sources) Hyperthyroidism; Translations: [Hypothyroidism] Onset: 06-26-2017 06-26-2017 Chronic Unclassified (4 sources) Well Adult, female - The patient feels well with minor complaints, has good energy level and is sleeping well. The first day of the last menstrual period was : (05-30-16). The patient is not using any method of contraception at this time. The patient has a balanced diet and takes supplemental vitamins. The patient exercises none (active lifestyle). The patient sleeps 6 hours per night. Note for Well Adult, female : reviewed by B 05-31-2016 Unclassified (4 sources) Follow Up for Multiple Chronic Conditions - The patient is here for follow-up of depression (Anxiety disorder.). The patient always takes the prescribed medications. No side effects noted (Does not think dosage is working well. Continues with occasional anxiety and insomnia. Has been taking Ativan to help with sleep.). The patient has an active lifestyle but no regular exercise program. The patient states that weight has decreased (Down 5 pounds.). Note for Multiple chronic conditions follow-up : Pt does not want to stay on paxil due to loss of libido. It did improve sx ( 25-30 % ).Pt also had GB removal March 21 04-08-2013 Past or Other Problems Problem Classification Problem Date Documented Da te Episodic/Chronic Nausea and vomiting (4 sources) Nausea; Translations: [Nausea] Onset: 08-01-2017 08-01-2017 Episodic Other bone disease and musculoskeletal deformities (20 sources) Segmental and somatic dysfunction; Translations: [Segmental and somatic dysfunction of thoracic region] Onset: 06-26-2017 06-26-2017 Episodic Other gastrointestinal disorders (4 sources) Diarrhea; Translations: [Diarrhea, unspecified] Onset: 08-01-2017 08-01-2017 Episodic Unclassified (4 sources) Well adult female - The patient feels well with no complaints, has good energy level and is sleeping poorly. The first day of the last menstrual period was : (04/08/23). The patient has a balanced diet. The patient does not exercise. The patient sleeps 8 (split up) hours per night. Note for Well adult female : reviewed by B 04-12-2023 Unclassified (4 sources) Back pain - The onset of the back pain has been gradual and has been occurring for 3 days. The pain is characterized as a dull ache and stabbing. The pain is located in the lower back (right) and radiates to the right groin. The pain is precipitated by nothing (did lifting in the last 2 days, but its her normal lifting). The symptoms are aggravated by exertion and are relieved by NSAIDs. The pain has been associated with back stiffness and history of back surgery (L4,5 S1), while there has been no associated abdominal pain, dysuria, flank pain, hip pain, leg weakness or paresthesias in leg. Note for Back pain : had flexeril on hand - this did help some but she is out now 01-18-2023 Unclassified (4 sources) Laceration - The injury occurred on : (04/03/2022). The laceration is described as mild. The occurrence was sudden following an incident at home (she stabbed herself w amanda scissors while trying to cut tape) . It is located on the fingers (on hand in between thump and pointer finger). The injury is accompanied by pain (tender as well) and swelling . Note for Laceration : was achy last nightpt wants tetanus says its been yrs none in our charts reviewed by [facility] 04-04-2022 Unclassified (4 sources) Well Adult, female - The patient feels well with no complaints, has decreased energy level (works nights) and is sleeping poorly. The first day of the last menstrual period was : (03-23-22). The patient has a balanced diet and takes supplemental vitamins. The patient does not exercise. The patient sleeps 6 hours per night. 03-28-2022 Unclassified (4 sources) Foot pain - The pain is in the right foot and is located in the heel. The onset of the foot pain was acute (Injured Sept 4 (slid foot on a rock)) and has been occurring in a persistent pattern for weeks. The course has been without change. The pain is moderate. The pain is characterized as a sharp stabbing. The pain is aggravated by physical activity. Note for Foot pain : reviewed by [facility] 06-06-2021 Unclassified (4 sources) Ear pain - The onset of the pain has been sudden and has been occurring in a persistent pattern for 2 days. The course has been increasing. The pain is described as a moderate dull aching. The pain is described as being located in the inner ear. The pain is felt in the right ear. There has been no associated chills, decreased hearing, fever, sore throat, runny nose, cough, tinnitus or vertigo. Medical History includes ear infections (Patient reports that she has had several ear infections in the past 5 months. She was last seen in our office in November and [facility] since [facility].) and seasonal allergies, but there is no history of recurrent sinusitis. Note for Ear pain : Patient has been using drops for otitis externa that seem to have helped a little at this point. 04-27-2021 Unclassified (4 sources) Well adult female - The patient feels well with no complaints, has good energy level and is sleeping well (sometimes). The first day of the last menstrual period was : (03/25/21). The patient has a balanced diet. The patient exercises none (sometimes). The patient sleeps 6 (5-6) hours per night. Note for Well adult female : pt increased her lexapro to 10 mg a few weeks ago reviewed by B 03-29-2021 Unclassified (4 sources) Ear pain - The onset of the pain has been sudden and has been occurring in a persistent pattern for 1 day. The course has been increasing. The pain is described as a moderate sharp pain. The pain is described as being located in the inner ear. The pain is felt in the right ear. There has been no associated chills, decreased hearing, fever, purulent discharge from ear, sore throat, runny nose, cough, tinnitus or vertigo. Medical History does not include ear infections, seasonal allergies or recurrent sinusitis. Note for Ear pain : states that her ear itches as well. Has been taking Tylenol for the pain and states it has taken the edge off 11-12-2020 Unclassified (4 sources) Well Adult, female - The patient feels well with no complaints, has decreased energy level and is sleeping poorly. The first day of the last menstrual period was : (04-10-20). The patient has a balanced diet and takes supplemental vitamins. The patient exercises 3 - 4 times per week (walks and swims). The patient sleeps 5 hours per night. Note for Well Adult, female : reviewed by B 04-28-2020 Unclassified (4 sources) Cold Symptoms - Note for Upper respiratory infection : Was seen in office 11-10-19 with diagnosis of pneumonia and given prescriptions for Doxycycline and then on November 11 went to [place] [facility] and got an rx for steroids had negative flu test in ER. On November 13 called in here and Dr Arita added the Levaquin. Is improving but does not feel well enough to go to work. Continues with productive cough, shortness of breath and extreme fatigue. 11-18-2019 Unclassified (4 sources) Cold Symptoms - Symptoms include sneezing, nasal congestion, runny nose, ear fullness, hoarseness, dry cough, wheezing, fever (low grade) and headache, but do not include ear pain, sore throat, chills or general malaise. The onset was sudden 5 day(s) ago. The symptoms occur constantly. The patient describes this as moderate in severity and worsening. Current treatment includes non-prescription cold medication. Note for Upper respiratory infection : Was sick with URI two weeks ago. Improved for two days and then started with cough and shortness of breath 5 days ago. 11-10-2019 Unclassified (4 sources) Well adult female - The first day of the last menstrual period was : (04/21/19). The patient is not using any method of contraception at this time. The patient has a balanced diet and takes supplemental vitamins (multivitamin, Vit D). The patient does not exercise. The patient sleeps 7 hours per night. Note for Well adult female : Pt gets hers pap test done at Dr Amin's reviewed by [facility] 04-28-2019 Unclassified (4 sources) UTI - Symptoms include dysuria, urinary frequency, urinary urgency (extreme pressure inside) and abdominal pain. The pain is located in the suprapubic area. There is no radiation. The patient describes the pain as burning (pressure) and throbbing. Onset was sudden 6 week(s) ago (it was intermittent when it first began and she thought it related to her period, this weekend it became intense). There is no known event that preceded symptom onset. The symptoms occur intermittently. The patient describes this as moderate in severity and worsening. Symptoms are relieved by phenazopyridine. Associated symptoms do not include fever or vomiting. Note for UTI : lmp-10/15/18last pap summer 2017 reviewed by [facility] 10-28-2018 Unclassified (4 sources) Cold Symptoms - Symptoms include nasal congestion, runny nose, ear fullness, productive cough (green/yellow sputum.), wheezing (shortness of breath, feels tightness of chest), general malaise (body aches) and facial pain (sinus pressure), but do not include ear pain, sore throat, fever or headache. The onset was 6 day(s) ago. The symptoms occur constantly. The patient describes this as moderate in severity and worsening. Current treatment includes non-prescription cold medication, an oral decongestant (mucinex) and ventolin inhaler (leftover tessalon perles). Risk factors do not include smoking. The patient has been exposed to an individual with an upper respiratory infection (workplace, roommate). Medical history includes recurrent sinusitis and tonsillectomy, but patient denies history of seasonal allergies or asthma. Note for Upper respiratory infection : Took Tylenol about 1 hour ago. reviewed by [facility] 08-16-2018 Unclassified (4 sources) Well Adult, female - The patient feels well with no complaints, has decreased energy level and is sleeping poorly. The first day of the last menstrual period was : (04-27-18). The patient has a balanced diet and takes supplemental vitamins. The patient exercises 3 - 4 times per week (walks). The patient sleeps 5 hours per night. Note for Well Adult, female : reviewed by [facility] 05-15-2018 Unclassified (4 sources) Cold Symptoms - Symptoms include dry cough and productive cough (chest tight and can get SOB), but do not include nasal congestion, runny nose, ear pain, sore throat, fever or headache. The onset was gradual 2 week(s) ago. The symptoms occur constantly. The patient describes this as moderate in severity and unchanged. Current treatment includes mucinex d, old ventolin in haler, tesslon pearls-old. Medical history includes tonsillectomy, but patient denies history of seasonal allergies, recurrent sinusitis, recurrent strep pharyngitis, asthma or recurrent ear infections. Note for Upper respiratory infection : Using inhaler every 4 hours which does help some. 07-13-2017 Unclassified (4 sources) Well adult female - The patient feels well with no complaints, has good energy level and is sleeping well. The first day of the last menstrual period was : (05/08/2017). The patient has a balanced diet (has been working on diet) and takes supplemental vitamins. The patient does not exercise. The patient sleeps 6 hours per night. 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 Does not remember any specific incident though which may have caused this.) and has been occurring in an intermittent pattern for 1 week. The course has been gradually worsening. The pain is characterized as a moderate to severe sharp stabbing. The pain is described as being located in the right shoulder (under shoulder blade.). Relieving factors include nothing (but has been taking Ibuprofen or Tylenol which does seem to decrease pain some. Has also tried Lidocaine patches.). The symptoms have been associated with painful ROM (at times.). Previous diagnostic tests have included none (but has had problems one other time with similar pain and was put on steroids and Flexeril and pain gradually subsided. This was years ago.). There have been no previous evaluations. Note for Shoulder pain : Seems to happen if she moves the wrong way or tries to lift arm above head. reviewed by [facility] 04-27-2017 Unclassified (4 sources) Cold Symptoms - Symptoms include nasal congestion, runny nose, purulent discharge, ear pain, sore throat, hoarseness, productive cough, wheezing, fever, chills, general malaise, headache and facial pain. The onset was gradual 8 day(s) ago. The symptoms occur constantly. The patient describes this as moderate in severity and worsening. Current treatment includes non-prescription cold medication. Risk factors do not include smoking. The patient has been exposed to an individual with similar symptoms. 09-01-2016 Unclassified (4 sources) Back pain - The onset of the back pain has been sudden and has been occurring in a persistent pattern for 1 week (Awoke 1 week ago and pain was there.). The course has been increasing. The pain is characterized as a dull ache (until she moves a certain way and then pain is sharp and takes her breath away.). The pain is located in the upper back (between shouldr blades and radiating up into back of neck.). There are no precipitating factors. The symptoms are relieved by nothing (has been using Naproxen, Tylenol and ice but nothing takes it completely away.). Note for Back pain : No specific aggravating factors. No other associated symptoms. reviewed by [facility] 06-09-2016 Unclassified (4 sources) Fatigue - The onset of the fatigue has been acute and has been occurring in a persistent pattern for 2 months. The course has been constant. The fatigue occurs all the time. There has been no associated headache or insomnia. Note for Fatigue : Also complains of night sweats a couple of times a night. regular menses, no hair loss. Mother had thyroid disease . Has intermittent chest pain, no precipitators. She does have MVP. No daily sx , happens about once a week. Described as tightness, lasts about 10-30 minutes. Atuvan did not help. 11-08-2015 Unclassified (4 sources) Well Adult, female - The patient feels well with no complaints, has good energy level and is sleeping well. The patient has a balanced diet and takes supplemental vitamins. The patient exercises weekly. The patient sleeps 7 hours per night. Note for Well Adult, female : reviewed by [facility] 05-28-2015 Unclassified (4 sources) Cold Symptoms - Symptoms include nasal congestion, productive cough (green sputum), fever (100) and general malaise (some shortness of breath). The onset was gradual 1 week(s) ago. The symptoms occur constantly. The patient describes this as moderate in severity and worsening. Current treatment includes non-prescription cold medication (Mucinex, otc cold med). Risk factors do not include smoking. 12-25-2014 Unclassified (4 sources) Abdominal pain - The onset of the abdominal pain has been gradual and has been occurring in a persistent pattern for 4 months. The course has been constant. The pain is described as a moderate sharp pain and dull ache (constant). The pain is located in the right upper quadrant and radiates to the back (right) and right flank. The symptoms have no aggravating factors but are relieved by nothing (sometimes aleve helps temporarily.). There has been no associated amenorrhea, constipation, dark urine, diarrhea, dysuria, fever, heartburn, nausea or vomiting. Note for Abdominal pain : Pt had a cholecystectomy in 2012. 08-10-2014 Unclassified (4 sources) Well Adult, female - The patient feels well with minor complaints (Right flank pain for a couple of month. No dysuria.), has good energy level and is sleeping well. The first day of the last menstrual period was : (05-28-14). The patient has a balanced diet and takes no supplemental vitamins & iron. The patient does not exercise. The patient sleeps 6 hours per night. Note for Well Adult, female : Wellness physical for insurance. reviewed by [facility] 06-03-2014 Unclassified (4 sources) Sore throat - Sore in back throat for a couple of days and getting worse. No fever. Is leaving for vacation tomorrow. reviewed by [facility] 04-14-2014 Unclassified (4 sources) poisin adenike - Patient was seen 4 days ago for poison adenike (positive exposure). She was given kenalog 60mg and decadron 4mg. Has been using prescription cream alternating with an OTC anti-itch spray. Has taken claritin and benadryl on occasion. New lesions continue to appear. Very itchy all over and can't quit scratching. 04-01-2014 Unclassified (4 sources) Rash - The onset of the rash has been gradual and has been occurring in a persistent pattern for 2 weeks. The course has been increasing (starting getting worse yesterday.). The rash is characterized as red, raised above the skin and grouped in crops. The rash was first seen on the lower extremity. It spread to the entire body. There has been associated itching, drainage (some drainage on feet.) and erythema. There has been no associated fever. Note for Rash : HAs been using benadry spray, pills and cortisone cream. 03-28-2014 Unclassified (4 sources) ulcer in throat - Sore spot in throat for a week. Thinks she hit the back of her throat with the toothbrush. She has not had URI symptoms. She has gargled with salt water. Is not resolving like she would expect and now hurting up to left ear. 10-30-2013 Unclassified (4 sources) Cold Symptoms - Symptoms include nasal congestion, runny nose, purulent discharge, sore throat, hoarseness, productive cough (green, blood tinged mucus), fever (101.1), general malaise, headache and facial pain, but do not include sneezing, ear pain or chills. The onset was gradual 5 day(s) ago. The symptoms occur constantly. The patient describes this as moderate in severity and worsening. Current treatment includes non-prescription cold medication, acetaminophen and NSAIDs. Risk factors do not include smoking. The patient has been exposed to an individual with an upper respiratory infection and an individual with similar symptoms. Medical history includes recurrent sinusitis and tonsillectomy, but patient denies history of seasonal allergies, recurrent strep pharyngitis, asthma or recurrent ear infections. Note for Upper respiratory infection : This is patient's 4th respiratory problem in 2 months. 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 was last treated beginning of july with augmentin 08-11-2013 Unclassified (1 source) Cyst - Also complains of painful cyst in groin area for 1 week and getting worse. No drainage. reviewed by [facility] 07-15-2013 Unclassified (1 source) [ADDITIONAL REASON] Cold Symptoms - Symptoms include hoarseness, dry cough and productive cough, but do not include fever. The onset was sudden 2 week(s) ago. The symptoms occur constantly. The patient describes this as moderate in severity and unchanged. Current treatment includes cough suppressants. Note for Upper respiratory infection : reviewed by [facility] 07-15-2013 Unclassified (4 sources) Well Adult, female - The patient feels well with no complaints. The first day of the last menstrual period was : (Period just started on Sunday05/30/13 and are regular.). The patient is not using any method of contraception at this time. The patient has a balanced diet and takes supplemental vitamins (on occassion.). The patient exercises daily (Walks, does yoga and lifts weights and at times will run. Has lost 13 # from March). The patient sleeps 6 hours per night. Note for Well Adult, female : reviewed by [facility] 06-02-2013 Unclassified (1 source) Abdominal pain - The onset of the abdominal pain has been gradual and has been occurring in a persistent pattern for weeks. The pain is described as a moderate sharp pain (RUQ. DId have U/S micheal in 2007 which showed gall stones and pt feels it is probably time for referral to have this removed.). The pain radiates to the right flank. Note for Abdominal pain : reviewed by [facility] 02-21-2013 Unclassified (4 sources) [ADDITIONAL REASON] Anxiety - The onset of the anxiety has been gradual and has been occurring in a persistent pattern for years (but worse over past year.). The course has been increasing (and wonders if this cold be related to her insomnia.). There were no precipitating factors. Note for Anxiety : Will get a pounding heart and just very anxious. No other associated symptoms. She sees a psychologist in [place]. She was on trazadone 20 years ago for sleep. Has never been on daily meds for this. Has never been on ativan.She states she was also dx w depression and was on Zoloft and Wellbutrin. Helped w depression. 02-21-2013 Unclassified (1 source) [ADDITIONAL REASON] Insomnia - The patient is not currently being treated for this problem. Past treatment has included melatonin (which does not work. Has tried Benadryl and that makes her anxious. Has used Trazodone used ago which was pretty effective and would like to try that again if possible.). No associated conditions are noted. Symptoms include difficulty staying asleep. Onset was gradual 4 month(s) ago (Has had problems for many years but has gotten worse past 3-4 months). Associated symptoms do not include snoring, restless legs, depression, alcohol abuse, drug abuse or sleepwalking. Note for Insomnia : Sleep schedule varies because she works at night. Sleeps for couple hours and then awakes for awhile. This is an every day occurrence. reviewed by [facility] 02-21-2013 Unclassified (4 sources) Well Adult, female - The patient feels well with minor complaints (WOuld like a mole that she has under right breast that she would like evaluated. Was bleeding last week and is itchy. ALso has mole lower right abdomen that she would like evaluated as well.). Most recent Pap smear : (Gets these done per Dr. Amin on yearly basis. Has had 2 abnomal paps and just went back for recheck but does not have results yet.). The first day of the last menstrual period was : (March). The patient is not using any method of contraception at this time. Date of last mammogram : (Last November per Dr. Amin. Was normal.). Date of most recent cholesterol screening : (05/08/12). Date of most recent glucose screening : (05/08/12 and result is 92). Patient has not had a Zostavax vaccine. Date of Pneumovax : (Thinks she had this in mid .). Date of most recent influenza vaccine :. Last Tetanus booster: unknown/unsure. The patient has inadequate caloric intake and takes supplemental vitamins. The patient exercises 3 - 4 times per week. The patient sleeps 9 hours per night. Note for Well Adult, female : reviewed by B 05-10-2012 Unclassified (4 sources) No better - Pt here today becauase she was seen Sunday for bronchitis. Was given zithromax and ventolin inhaler. She is feeling worse and feeling tight burning in chest and hard to get a good breath. Pulse ox 98% and says has sob on exertion. COughing and expectorating greenish colored sputum. Ran fever last night of 100.2. None today. Feels she needs re-evlauted for possible pneumonia.Pt also experieincing pain in ruq- right under right breast. Says that pain is sharp and intensity depends on how she moves. Pt does have gall stones. She is not sure if this pain is related to gallbladder of it from the bronchitis and coughing. When pt is up moving around she will get a little lightheaded and nauseaus. reviewed by B 11-13-2011 Unclassified (4 sources) Cold Symptoms - Symptoms include sneezing, nasal congestion, ear pain (right ear), ear fullness (left), scratchy throat, hoarseness, productive cough (green mucus), fever (low grade (<100)), general malaise, headache and facial pain, but do not include runny nose or chills. The onset was gradual 4 day(s) ago. The symptoms occur constantly. The patient describes this as moderate in severity and worsening. Current treatment includes non-prescription cold medication (pt is using mucinex and afrin nasal spray), acetaminophen and NSAIDs. Risk factors do not include smoking. The patient has been exposed to an individual with an upper respiratory infection and an individual with similar symptoms. Medical history includes tonsillectomy, but patient denies history of seasonal allergies, recurrent sinusitis, recurrent strep pharyngitis, asthma or recurrent ear infections. Note for Cold Symptoms : Pt c/o chest tightness and s.o.b. 11-11-2011 Unclassified (4 sources) Cold Symptoms - Symptoms include nasal congestion, dry cough, wheezing, fever and general malaise. The onset was sudden 1 day(s) ago (Started with cold sx 5 days ago, but fever for 1 day). The patient is not currently being treated for this problem. 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 Note for Cold Symptoms : Pt states she started ov er the weekend with cold sx, then spiked a fever yesterday of 102.0 Has some shortness of breath. Pt states she did have her flu shot this year. 10-20-2010 Unclassified (4 sources) Cyst? - Pt states that she has had small area upper back- just below neck that she thought was just a mole. Noticed it about 6 months ago and has not caused any problems. Couple days ago area has been hurting. It appears like a whitish-yellow spot and all around is inflamed. She has not noticed it draining. Thought it time she get it checked. 07-15-2010 Unclassified (3 sources) Cold Symptoms - Symptoms include hoarseness, dry cough and productive cough, but do not include fever. The onset was sudden 2 week(s) ago. The symptoms occur constantly. The patient describes this as moderate in severity and unchanged. Current treatment includes cough suppressants. Note for Upper respiratory infection : reviewed by B 07-15-2013 Unclassified (3 sources) [ADDITIONAL REASON] Cyst - Also complains of painful cyst in groin area for 1 week and getting worse. No drainage. reviewed by [facility] 07-15-2013 Unclassified (3 sources) Insomnia - The patient is not currently being treated for this problem. Past treatment has included melatonin (which does not work. Has tried Benadryl and that makes her anxious. Has used Trazodone used ago which was pretty effective and would like to try that again if possible.). No associated conditions are noted. Symptoms include difficulty staying asleep. Onset was gradual 4 month(s) ago (Has had problems for many years but has gotten worse past 3-4 months). Associated symptoms do not include snoring, restless legs, depression, alcohol abuse, drug abuse or sleepwalking. Note for Insomnia : Sleep schedule varies because she works at night. Sleeps for couple hours and then awakes for awhile. This is an every day occurrence. reviewed by [facility] 02-21-2013 Unclassified (3 sources) [ADDITIONAL REASON] Abdominal pain - The onset of the abdominal pain has been gradual and has been occurring in a persistent pattern for weeks. The pain is described as a moderate sharp pain (RUQ. DId have U/S micheal in 2007 which showed gall stones and pt feels it is probably time for referral to have this removed.). The pain radiates to the right flank. Note for Abdominal pain : reviewed by [facility] 02-21-2013 Unclassified (2 sources) Hip pain - The onset of the hip pain has been acute and has been occurring in a persistent pattern for 1 month. The course has been worsening. The hip pain is described as being a moderate dull aching located in the hip (left side). The hip pain radiates to the left groin. The pain is not aggravated by anything in particular. There are no relieving factors. Note for Hip pain : reviewed by [facility] 10-23-2023 Results Test Name Value Interpretation Reference Range Facil ity Vital Signs Date Time Vital Sign Value Performing Clinician Faci lity 10-23-2023 12:43-0500 Body height 167.64 cm Ana Nieves LPN [facility] [employer] 10-23-2023 12:43-0500 Body mass index (BMI) [Ratio] 42.29 kg/m2 Ana Nieves LPN [employer] [facility] [employer] 10-23-2023 12:43-0500 Body surface area Derived from formula 2.24 m2 Ana Nieves LPN [employer] [facility] [employer] 10-23-2023 12:43-0500 Body weight 118.84 kg Ana Nieves LPN [employer] [facility] [employer] 10-23-2023 12:43-0500 Diastolic blood pressure 105 mm[Hg] Ana Nieves LPN [employer] [facility] [employer] Encounters Encounter Date Encounter Type Care Provider Facility Start: 10-23-2023 End: 10-23-2023 Office outpatient visit 15 minutes Rock Arita MD Work Phone: [facility]. Start: 08-28-2023 End: 08-28-2023 Medication Rock Arita MD Work Phone: [facility]. Start: 04-12-2023 End: 04-12-2023 Periodic preventive med est patient 40-64yrs Rock Arita MD Work Phone: [facility]. Start: 03-29-2023 End: 03-29-2023 Orders Rock Arita MD Work Phone: [facility]. Start: 01-18-2023 End: 01-18-2023 Office outpatient visit 15 minutes Rock Arita MD Work Phone: [facility]. Start: 04-04-2022 End: 04-04-2022 Office outpatient visit 15 minutes Rock Arita MD Work Phone: [facility]. Start: 03-28-2022 End: 03-28-2022 Periodic preventive med est patient 40-64yrs Rock Arita MD Work Phone: [facility]. Start: 02-14-2022 End: 02-14-2022 Orders Rock Arita MD Work Phone: [facility]. Start: 06-13-2021 End: 06-13-2021 Orders Rock Arita MD Work Phone: [facility]. Start: 06-06-2021 End: 06-06-2021 Office outpatient visit 15 minutes Rock Arita MD Work Phone: [facility]. Start: 04-28-2021 End: 04-28-2021 Medication Rock Arita MD Work Phone: [facility]. Start: 04-27-2021 End: 04-27-2021 Office outpatient visit 15 minutes Rock Arita MD Work Phone: [facility]. Start: 04-18-2021 End: 04-18-2021 Historical Summary Rock Arita MD Work Phone: [facility]. Start: 03-29-2021 End: 03-29-2021 Periodic preventive med est patient 40-64yrs Rock Arita MD Work Phone: [facility]. Start: 02-28-2021 End: 02-28-2021 Orders Rock Arita MD Work Phone: [facility]. Start: 11-12-2020 End: 11-12-2020 Office outpatient visit 15 minutes Rock Arita MD Work Phone: [facility]. Start: 04-28-2020 End: 04-28-2020 Periodic preventive med est patient 40-64yrs Rokc Arita MD Work Phone: [facility]. Start: 03-11-2020 End: 03-15-2020 Orders Rock Arita MD Work Phone: [facility]. Start: 11-17-2019 End: 11-18-2019 Office outpatient visit 15 minutes Rock Arita MD Work Phone: [facility]. Start: 11-14-2019 End: 11-14-2019 Medication Rock Arita MD Work Phone: [facility]. Start: 11-13-2019 End: 11-13-2019 Telephone follow-up Rock Arita MD Work Phone: [facility]. Start: 11-10-2019 End: 11-10-2019 Office outpatient visit 15 minutes Rock Arita MD Work Phone: [facility]. Start: 07-28-2019 End: 07-28-2019 Orders Rock Arita MD Work Phone: [facility]. Start: 04-28-2019 End: 04-28-2019 Periodic preventive med est patient 40-64yrs Rock Arita MD Work Phone: [facility]. Start: 04-22-2019 End: 04-22-2019 Orders Rock Arita MD Work Phone: [employer] Start: 02-17-2019 End: 02-17-2019 Orders Rock Arita MD Work Phone: [facility]. Start: 11-04-2018 End: 11-04-2018 Orders Rock Arita MD Work Phone: [facility]. Start: 11-01-2018 End: 11-01-2018 Orders Rock Arita MD Work Phone: [facility]. Start: 10-28-2018 End: 10-28-2018 Office outpatient visit 15 minutes Rock Arita MD Work Phone: [facility]. Start: 08-21-2018 End: 08-21-2018 Medication oRck Arita MD Work Phone: [facility]. Start: 08-19-2018 End: 08-19-2018 Medication Rock Arita MD Work Phone: [facility]. Start: 08-16-2018 End: 08-16-2018 Office outpatient visit 15 minutes Rock Arita MD Work Phone: [facility]. Start: 05-20-2018 End: 05-20-2018 Orders Rock Arita MD Work Phone: [facility]. Start: 05-15-2018 End: 05-15-2018 Periodic preventive med est patient 40-64yrs Rock Arita MD Work Phone: [facility]. Start: 05-03-2018 End: 05-03-2018 Orders Rock Arita MD Work Phone: [facility]. Start: 04-08-2018 End: 04-08-2018 Orders Rock Arita MD Work Phone: [facility]. Start: 09-29-2017 End: 10-04-2017 Patient encounter procedure Rock Arita MD Work Phone: [facility]. Start: 07-13-2017 End: 07-13-2017 Office outpatient visit 15 minutes Rock Arita MD Work Phone: [employer] Start: 06-19-2017 End: 06-19-2017 Orders Rock Arita MD Work Phone: [facility]. Start: 05-11-2017 End: 05-11-2017 Periodic preventive med est patient 40-64yrs Rock Arita MD Work Phone: [facility]. Start: 04-27-2017 End: 04-27-2017 Office outpatient visit 15 minutes Rock Arita MD Work Phone: [facility]. Start: 04-06-2017 Ambulatory ROCK ARITA [facility] Start: 04-06-2017 End: 04-06-2017 Orders Rock Arita MD Work Phone: [facility]. Start: 09-01-2016 End: 09-01-2016 Patient encounter procedure Rock Arita MD Work Phone: [facility]. Start: 06-13-2016 End: 06-13-2016 Medication Rock Arita MD Work Phone: [facility]. Start: 06-09-2016 End: 06-09-2016 Office outpatient visit 15 minutes Rock Arita MD Work Phone: [facility]. Start: 05-31-2016 End: 05-31-2016 Periodic preventive med est patient 40-64yrs Rock Arita MD Work Phone: [facility]. Start: 05-30-2016 End: 05-30-2016 Historical Summary Rock Arita MD Work Phone: [facility]. Start: 05-27-2016 End: 05-29-2016 Orders Rock Arita MD Work Phone: [facility]. Start: 05-26-2016 End: 05-26-2016 Orders Rock Arita MD Work Phone: [facility]. Start: 04-21-2016 End: 04-21-2016 Orders Rock Arita MD Work Phone: [facility]. Start: 03-01-2016 End: 03-01-2016 Medication Rock Arita MD Work Phone: [facility]. Start: 01-10-2016 End: 01-10-2016 Orders Rock Arita MD Work Phone: [facility]. Start: 12-10-2015 End: 12-10-2015 Medication Rock Arita MD Work Phone: [facility]. Start: 11-16-2015 End: 11-16-2015 Orders Rock Arita MD Work Phone: [facility]. Start: 11-08-2015 End: 11-08-2015 Office outpatient visit 25 minutes Rock Arita MD Work Phone: [facility]. Start: 09-08-2015 End: 09-08-2015 Medication Rock Arita MD Work Phone: [facility]. Start: 06-25-2015 End: 06-25-2015 Medication Rock Arita MD Work Phone: [facility]. Start: 05-28-2015 End: 05-28-2015 Periodic preventive med est patient 40-64yrs Rock Arita MD Work Phone: [facility]. Start: 05-27-2015 End: 05-27-2015 Orders Rock Arita MD Work Phone: [facility]. Start: 04-27-2015 End: 04-27-2015 Medication Rock Arita MD Work Phone: [facility]. Start: 01-01-2015 End: 01-01-2015 Medication Rock Arita MD Work Phone: [facility]. Start: 12-28-2014 End: 12-28-2014 Orders Rock Arita MD Work Phone: [facility]. Start: 12-25-2014 End: 12-25-2014 Patient encounter procedure Rock Arita MD Work Phone: [facility]. Start: 10-08-2014 End: 10-08-2014 Medication Rock Arita MD Work Phone: [facility]. Start: 09-08-2014 End: 09-08-2014 Medication Rock Arita MD Work Phone: [facility]. Start: 08-10-2014 End: 08-10-2014 Patient encounter procedure Rock Arita MD Work Phone: [facility]. Start: 06-05-2014 End: 06-05-2014 Medication Rock Arita MD Work Phone: [facility]. Start: 06-03-2014 End: 06-03-2014 Patient encounter procedure Rock Arita MD Work Phone: [facility]. Start: 05-19-2014 End: 05-19-2014 Medication Rock Arita MD Work Phone: [facility]. Start: 04-14-2014 End: 04-14-2014 Office outpatient visit 15 minutes Rock Arita MD Work Phone: [facility]. Start: 04-01-2014 End: 04-01-2014 Medication Rock Arita MD Work Phone: [facility]. Start: 04-01-2014 End: 04-01-2014 Patient encounter procedure Rock Arita MD Work Phone: [facility]. Start: 03-28-2014 End: 03-28-2014 Patient encounter procedure Rock Arita MD Work Phone: [facility]. Start: 02-16-2014 End: 02-16-2014 Medication Rock Arita MD Work Phone: [facility]. Start: 01-20-2014 End: 01-20-2014 Medication Rock Arita MD Work Phone: [facility]. Start: 11-21-2013 End: 11-21-2013 Medication Rock Arita MD Work Phone: [facility]. Start: 10-30-2013 End: 10-30-2013 Patient encounter procedure Rock Arita MD Work Phone: [facility]. Start: 09-16-2013 End: 09-16-2013 Medication Rock Arita MD Work Phone: [facility]. Start: 08-11-2013 End: 08-11-2013 Patient encounter procedure Rock Arita MD Work Phone: [facility]. Start: 07-15-2013 End: 07-15-2013 Patient encounter procedure Rock Arita MD Work Phone: [facility]. Start: 07-04-2013 End: 07-04-2013 Medication Rock Arita MD Work Phone: [facility]. Start: 06-25-2013 End: 06-25-2013 Medication Rock Arita MD Work Phone: [facility]. Start: 06-02-2013 End: 06-02-2013 Patient encounter procedure Rock Arita MD Work Phone: [facility]. Start: 05-22-2013 End: 05-22-2013 Medication oRck Arita MD Work Phone: [facility]. Start: 04-08-2013 End: 04-08-2013 Patient encounter procedure Rock Arita MD Work Phone: [facility]. Start: 02-21-2013 End: 02-21-2013 Patient encounter procedure Rock Arita MD Work Phone: [facility]. Start: 05-10-2012 End: 05-10-2012 Patient encounter procedure Rock Arita MD Work Phone: [facility]. Start: 11-13-2011 End: 11-13-2011 Patient encounter procedure Rock Arita MD Work Phone: [facility]. Start: 11-11-2011 End: 11-11-2011 Patient encounter procedure Rock Arita MD Work Phone: [facility]. Start: 10-20-2010 End: 10-20-2010 Patient encounter procedure Rock Arita MD Work Phone: [facility]. Start: 09-12-2010 End: 09-12-2010 Medication Rock Arita MD Work Phone: [employer] Start: 07-15-2010 End: 07-15-2010 Patient encounter procedure Rock Arita MD Work Phone: [employer] Procedures Date Procedure Procedure Detail Performing Clinician Start: 04-12-2023 End: 04-11-2023 Depression screening Rock Arita MD Work Phone: Start: 04-12-2023 End: 04-11-2023 Scr dep neg, no plan reqd Rock Arita MD Work Phone: Start: 03-10-2023 End: 03-10-2023 Lab findings surveillance Kimberly Figueroa JOSE M Plan of Treatment Date Care Activity Detail Author Start: 10-23-2023 Radex hip unilateral with pelvis 2-3 views Hip/pelvis x-ray, left ([id number]) Start: 23-Oct-2023 Intent [facility]. Start: 03-29-2023 Comprehensive metabo lic panel CMP w/ GFR* ([id number]) Start: 29-Mar-2023 Request Comments: order sent for tsh and vitamin D as well, please do all tests [employer]; [facility]. Immunizations Immunization Date Immunization Notes Care Provider Fa jericho 04-04-2022 tetanus toxoid, redu andrew diphtheria toxoid, and acellular pertussis vaccine, adsorbed Rock Arita MD Work Phone: [employer]; [facility]. Payers Date Payer Category Payer Policy ID Unknown [id number] Unknown [facility] Social History Date Type Detail Facility Alcohol Use: Alcohol Use: ; O ccasional alcohol use. [facility] Caffeine Use Caffeine Use [employer] [facility]. Tobacco Use: Tobacco Use: ; Former smoker . [facility]. Female [employer] [facility]. Work Phone: Occasional alcohol use [facility] [employer] [facility]. Work Phone: Ex-smoker [employer] [facility] [employer] [facility] Work Phone: Summary Purpose Family History Cancer Status:Active Comments:Grandfa ther Coronary Artery Disease Status:Active Comments :Maternal Grandfather. Diabetes Mellitus Type II Status:Active Commen ts:Mother. Great Grandmother Hypertension Status:Active Comments:Mother. Grandmother and Grandfather Osteoarthritis Status:Active Comments:Mother. randparents Cancer Status:Active Comments:Grandfa ther Coronary Artery Disease Status:Active Comments :Maternal Grandfather. Diabetes Mellitus Type II Status:Active Commen ts:Mother. Great Grandmother Hypertension Status:Active Comments:Mother. Grandmother and Grandfather Osteoarthritis Status:Active Comments:Mother. randparents Cancer Status:Active Comments:Grandfa ther Coronary Artery Disease Status:Active Comments :Maternal Grandfather. Diabetes Mellitus Type II Status:Active Commen ts:Mother. Great Grandmother Hypertension Status:Active Comments:Mother. Grandmother and Grandfather Osteoarthritis Status:Active Comments:Mother. randparents Cancer Status:Active Comments:Grandfa ther Coronary Artery Disease Status:Active Comments :Maternal Grandfather. Diabetes Mellitus Type II Status:Active Commen ts:Mother. Great Grandmother Hypertension Status:Active Comments:Mother. Grandmother and Grandfather Osteoarthritis Status:Active Comments:Mother. randparents Advance Directives No Advanced Directives Records Found Additional Source Comments INFORMATION SOURCE (unrecogn ized section and content) FOR RECORDS PERTAINING TO PATIENTS WHO ARE OR HAVE BEEN ENROLLED IN A CHEMICAL DEPENDENCY/SUBSTANCEABUSE PROGRAM, SOME INFORMATION MAY BE OMITTED. This clinical summary was aggregated from multiple sources. Caution should be exercised in using it in the provision of clinical care. This summary normalizes information from multiple sources, and as a consequence, information in this document may materially change the coding, format and clinical context of patient data. In addition, data may be omitted in some cases. CLINICAL DECISIONS SHOULD BE BASED ON THE PRIMARY CLINICAL RECORDS. [employer] provides no warranty or guarantee of the accuracy or completeness of information in this document.
== END | disposition home or self-care (01) ==
LOC: RAD 16:46
PROVIDERS: PCP Family Medicine; Referring Provider Family Medicine; Visit Provider Family Medicine
DX: M25.552 Pain in left hip (principal)
CPT/HCPCS: 73502

== ENCOUNTER → 2024-03-18 | Outpatient (CLI) | payer OTHER, SELFPAY ==
[2024-03-18 13:02] LABS: Vitamin D,25 Hydroxy 30.9 ng/mL
[2024-03-18 13:22] LABS: ALB/GLOB Ratio 0.8 RATIO (0.9-2.4); AST(SGOT) 32 U/L (15-37); Alanine Aminotransfer ALT/SGPT 40 U/L (13-56); Albumin, Serum 3.4 g/dL (3.2-5.0); Alkaline Phosphatase 83 U/L (45-117); Anion Gap 7 (5-15); BUN 13 mg/dL (7-18); BUN/Creat Ratio 18.3 RATIO (10-20); Chloride 104 mmol/L (98-107); Cholesterol 192 mg/dL (200); Creatinine, Serum 0.71 mg/dL (0.55-1.02); EST Glomerular Filtration Rate 91 mL/min (>60); Est Glom Filt Rate - Afr Amer 110 mL/min (>60); Globulin 4.2 g/dL (2.2-4.2); Glucose 101 mg/dL (74-106); High Density Lipoprotein 46 mg/dL; Potassium 4.3 mmol/L (3.5-5.1); Protein, Total 7.6 g/dL (6.4-8.2); Sodium Level 135 mmol/L (136-145); Thyroid Stim Hormone (TSH) 1.72 uIU/mL (0.358-3.74); Triglycerides 146 mg/dL; Very Low Density Lipoprotein 29 mg/dL (5-40)
== END | disposition home or self-care (01) ==
LOC: LAB 10:48
PROVIDERS: PCP Family Medicine; Referring Provider Family Medicine; Visit Provider Family Medicine
DX: Z13.1 Encounter for screening for diabetes mellitus (principal); Z13.220 Encounter for screening for lipoid disorders; E03.9 Hypothyroidism, unspecified; E55.9 Vitamin D deficiency, unspecified
CPT/HCPCS: 36415; 80053; 80061; 82306; 84443

== ENCOUNTER → 2024-04-09 | Outpatient (CLI) | payer OTHER, SELFPAY ==
--- NOTE | 2024-04-09 12:55 | STEWCON_ITS ---
Reason For Study: Chest Pain Stress Results Protocol: Stress Echocardiogram-Kendall Protocol Maximum Predicted HR: 167 bpm Target HR: 142 bpm % Maximum Predicted HR: 90 % Heart Stage Duration Rate BP Comment (mm:ss) (bpm) Baseline 66 142/84Patient denies chest pain. Stage 1 3:00 123 140/80Patient denies chest pain Stage 2 3:00 142 160/86Patient complains of shortness of breath. Denies chest pain. Patient complains of increased shortness of breath and leg fatigue. Stage 3 1:29 151 / Denies chest pain. Patient denies chest pain or shortness of breath. 2.5 ml Definity Recovery 90 118/78used total, per protocol. Stress Duration: 7:29 mm:ss Maximum Stress HR: 151 bpm Baseline Echocardiogram Findings The estimated ejection fraction is 60 %. Postexercise ejection fraction is 65-70%. Stress Echo Wall motion Data Resting WM Intermediate WM Stress WM Resting Wall Motion Wall Motion Stress No regional wall motion No regional wall motion abnormalities noted. abnormalities noted. EKG Data The baseline ECG displays normal sinus rhythm. No significant ischemic changes. Symptoms with Stress The patient experinced No chest pain . ECHO/Stress Test Echo W/Contrast Interpretation Summary The estimated ejection fraction is 60 %. Exercise echocardiogram is negative for exercise-induced chest pain or EKG etienne ges or echocardiographic changes of ischemia. Functional capacity is normal for age Ordering Physician: Rock Arita Referring Physician: Rock Arita Performed By: Kelli Vazquez, JORDEN, RVT
== END | disposition home or self-care (01) ==
LOC: CVS 12:52
PROVIDERS: PCP Family Medicine; Referring Provider Family Medicine; Visit Provider Family Medicine
DX: R07.9 Chest pain, unspecified (principal)
CPT/HCPCS: 93017; 93350; Q9957; A4216; C8928

== ENCOUNTER → 2024-06-27 | Outpatient (CLI) | payer OTHER, SELFPAY ==
[2024-07-06 12:07] LABS: HPV APTIMA, High Risk Negative (Negative)
== END | disposition home or self-care (01) ==
LOC: LABSPEC 16:10
PROVIDERS: PCP Family Medicine; Referring Provider Obstetrics & Gynecology; Visit Provider Obstetrics & Gynecology
DX: Z12.4 Encounter for screening for malignant neoplasm of cervix (principal)
CPT/HCPCS: 87624; 88175; G0145

== ENCOUNTER → 2024-07-08 | Outpatient (CLI) | payer OTHER, SELFPAY ==
[2024-07-08 17:50] LABS: Estradiol 37.1 pg/mL; Follicle Stimulating Hormone 35.6 mIU/mL
== END | disposition home or self-care (01) ==
LOC: LAB 15:56
PROVIDERS: PCP Family Medicine; Referring Provider Obstetrics & Gynecology; Visit Provider Obstetrics & Gynecology
DX: N95.1 Menopausal and female climacteric states (principal)
CPT/HCPCS: 36415; 82670; 83001

== ENCOUNTER → 2024-07-10 | Outpatient (CLI) | payer OTHER, SELFPAY ==
--- NOTE | 2024-07-10 07:34 | BI_ITS ---
MAMMOGRAPHY - BILATERAL SCREENING REASON FOR EXAM: Female, 54 years old. Routine annual screening examination. PERTINENT HISTORY: Non-contributory. TECHNIQUE: Digital bilateral breast maribel (3D mammographic acquisition) in the CC and MLO projections. 2-D mediolateral oblique (MLO) and craniocaudad (CC) views of both breasts were obtained. CAD: Full Field Digital Mammography with Computer Added Detection was performed. COMPARISON: Comparison is made with prior study July 02, 2023 and May 04, 2022. FINDINGS: Breast Composition: There are scattered areas of fibroglandular density. There are no dominant masses or suspicious calcifications. Stable small benign-appearing bilateral axillary lymph nodes. No other significant abnormalities are identified. There has been no significant change since the prior study. BI/SCRN MAMM (CAD)W/MARIBEL BILAT IMPRESSION: Stable bilateral screening mammogram. Yearly follow-up mammogram recommended. (A) ASSESSMENT CATEGORY: BIRADS Category 2: Benign. A letter regarding these results will be sent to the patient by the facility within 30 days. Approximately 10% of breast cancers are not detected by mammography. A normal mammogram should not delay biopsy of a clinically suspicious abnormality. [id number] Electronically Signed: Keny Brandon MD at 8:38 EDT ,
--- OUTSIDE RECORDS SUMMARY | 2024-07-10 07:37 | XMS RPT_ITS | CCD ---
Author Organization [facility] Care Team Providers Care Director Of Valuation Name Role Phone Warren Perea Unavailable Now Nurse Unavailable Unavailable Carlos Cox Unavailable Dosalyse PERSON, Lenka Arriaga Unavailable ROCK ARITA Unavailable Unavailable ROKC ARITA Unavailable Unavailable ROCK ARITA Unavailable Unavailable ROCK ARITA Unavailable Unavailable PROVIDER, UNKNOWN Unavailable Unavailable PROVIDER, UNKNOWN Unavailable Unavailable PROVIDER, UNKNOWN Unavailable Unavailable Juan J LEBRON, Rock Kan Unavailable Avani LEBRON ([place]), Dr. Mora Unavailable [facility] Unavailable Phyllis DIAZ, Dr. Quin Bagley Unavailable Carin LEBRON, Dr. Jean [facility] Unavailable Ryan LEBRON, Dr. White Unavailable Van LEBRON, Odette Brower Unavailable Andreas REICHN, Milena Unavailable Rakesh COLLIER, Eveline Champion Unavailable Yon SALGUERO, Rajwinder Brower Unavailable Unavailable Quin Joseph LPN Unavailable Unavailable Kendall LEBRON, Alin Restrepo Unavailable Danielle Call PA-C Unavailable Yareli COLLIER, Luca Brower Unavailable Yareli KEE, Nathalie L Unavailable Unavail able Figueroa SALGUERO, Kimberly Unavailable Unavailable Romeo KEE, Danielle Restrepo Unavailable Unavaila ble Baldemar REICHN, Cortney Unavailable Unavailable Denny SALGUERO, Veronika Unavailable Unavailable Roxy Pressley PA-C Unavailable [phone] Edgar TRANSMISSION WORKER, Odette Armstrong Unavailable Unavailab reilly Nieves LPN, Ana Baron Unavailable Unavailab reilly See MD, Jack Restrepo Unavailable [phone] Vess TRANSMISSION WORKER, Chanel L Unavailable Unavailable Wengerd TRANSMISSION WORKER, Patricia Unavailable Unavailabl e Edgard TRANSMISSION WORKER, Maria Teresa N Unavailable Unavaila ble Zaugg TRANSMISSION WORKER, Soledad Unavailable Unavailable Unavailable Unavailable Gramajo TRANSMISSION WORKER, Dottie Unavailable Unavailabl e Unavailable Unavailable Naveed TRANSMISSION WORKER, Nikhil Unavailable Unavailable Unavailable Unavailable Medications Current Medications Medication Drug Class(es) Dates Sig (Normalized) Sig (Original) cholecalciferol 0.025 mg oral tablet (20 sources) Vitamin D Vitamin D3 25 mc g (1,000 unit) tablet ; 2 daily (25 mcg (1,000 uni) Comments: not as much in summer Comment on above: not as much [facility] escitalopram 10 mg oral tablet (20 sources) Serotonin Reuptake Inhibitor Start: 10-16-2023 escitalopram 10 mg tablet ; 1 Tablet daily for 0 days Quantity: 90 {Tablet} Refills: 1 Ordered: 11-Apr-2024 MD Rock Arita Start: 11-Apr-2024 Start: 08-01-2017 LEXAPRO 10 MG TABS as directed ESCITALOPRAM OXALATE [id number] Carlos MORILLO Start: 11-29-2015 End: 05-31-2016 take 1 tablet by mouth once daily Escitalopram Oxalate 20 MG Oral Tablet ; 1 Tablet qd for 0 days Quantity: 90 {Tablet} Refills: 1 Ordered: 31-May-2016 JOSE M Nieves Ana Baron Start: 29-Nov-2015 End: 31-May-2016 Status: Inactive Comments: [facility] Comment on above: [facility] levothyroxine sodium 0.088 mg oral tablet (20 sources) l-Thyroxine Start: 01-14-2024 levothyroxine 88 mcg tablet ; 1 (one) Tablet qd for 0 days Quantity: 90 {Tablet} Refills: 0 Ordered: 09-Jul-2024 MD Rock Arita Start: 09-Jul-2024 Start: 07-16-2023 levothyroxine 88 mcg tablet ; 1 (one) Tablet qd for 0 days Quantity: 90 {Tablet} Refills: 1 Ordered: 16-Jul-2023 MD Rock Arita Start: 16-Jul-2023 Start: 06-26-2017 SYNTHROID 50 M CG TABS Once daily LEVOTHYROXINE SODIUM [id number] Lenka Mar DC LORazepam 1 mg oral tablet (20 sources) Benzodiazepine Start: 11-27-2023 Ativan 1 mg ta blet ; 1 Tablet three times daily, as needed for 0 days Quantity: 90 {Tablet} Refills: 0 Ordered: 27-Nov-2023 MD Rock Arita Start: 27-Nov-2023 Comments: Medication taken as needed. [facility]11/27/2023 Start: 05-16-2023 Ativan 1 mg ta blet ; 1 Tablet three times daily, as needed for 0 days Quantity: 90 {Tablet} Refills: 0 Ordered: 16-May-2023 MD Rock Arita Start: 16-May-2023 Comments: Medication taken as needed. [facility]05/16/2023 Comment on above: Medication taken as needed. [facility]05/16/2023 Medication taken as needed. [facility]11/27/2023 meloxicam 15 mg oral tablet (20 sources) Nonsteroidal Anti-inflammatory Drug Start: 4 meloxicam 15 mg tablet ; 1 (one) tablet qd prn hip pain for 0 days Quantity: 30 {Tablet} Refills: 3 Ordered: 23-Oct-2023 JOSE M Gramajo Start: 23-Oct-2023 72 hr scopolamine 0.0139 mg/hr transdermal system (6 sources) Anticholinergic Start: 4 scopolamine 1 mg over 3 days transdermal patch ; 1 (one) Patch q 3 days for 0 days Quantity: 4 {Patch} Refills: 0 Ordered: 05-May-2024 JOSE M Lucio Start: 05-May-2024 Completed/Discontinued Medications Medication Drug Class(es) Dates Sig (Normalized) Sig (Original) [id number] 200 actuat albuterol 0.09 mg/actuat metered dose inhaler (20 sources) beta2-Adrenergic Agonist Start: 11-14-2019 End: 03-25-2024 take 2 puff(s) by inhalation every four hours as needed for cough Ventolin HFA 90 mcg/actuation aerosol inhaler ; 2 (two) puff(s) every four hours, as needed for cough/wheeze for 0 days Quantity: 1 {Inhaler} Refills: 0 Ordered: 25-Mar-2024 JOSE M Marti Start: 14-Nov-2019 End: 25-Mar-2024 Status: Inactive Comments: Medication taken as needed. Comment on above: Medication taken as needed. amoxicillin 500 mg oral capsule (20 sources) Penicillin-class Antibacterial Start: 10-30-2013 End: 11-06-2013 take 1 capsule by mouth three times daily AMOXICILLIN, 500MG (Oral Capsule) ; 1 (one) Capsule three times daily for 7 days Quantity: 21 {Capsule} Refills: 0 Ordered: 30-Oct-2013 MD Odette Araujo Start: 30-Oct-2013 End: 06-Nov-2013 Status: Inactive amoxicillin 875 mg / clavulanate 125 mg oral tablet (20 sources) Penicillin-class Antibacterial Start: 11-09-2023 End: 11-16-2023 amoxicillin 875 mg-potassium clavulanate 125 mg tablet ; 1 (one) Tablet bid for 7 days Quantity: 14 {Tablet} Refills: 0 Ordered: 09-Nov-2023 AMIRA Pressley Start: 09-Nov-2023 End: 16-Nov-2023 Status: Inactive Start: 09-01-2016 End: 09-11-2016 take 1 tablet by mouth twice daily at mealtime Augmentin 875-125 MG Oral Tablet ; 1 Tab two times daily for 10 days Quantity: 20 {Tablet} Refills: 0 Ordered: 01-Sep-2016 MD Alin Argueta Start: 01-Sep-2016 End: 11-Sep-2016 Status: Inactive Comments: Take with food Start: 12-25-2014 End: 05-31-2016 take 1 tablet by mouth twice daily Amoxicillin-Pot Clavulanate 875-125 MG Oral Tablet ; 1 (one) Tablet Tablet bid for 0 days Quantity: 20 {Tablet} Refills: 0 Ordered: 31-May-2016 JOSE M Nieves Ana Baron Start: 25-Dec-2014 End: 31-May-2016 Status: Inactive Comment on above: Take with food azithromycin 250 mg oral tablet (20 sources) Macrolide Antimicrobial Start: 05-16-2024 End: 05-21-2024 azithromycin 250 mg tablet ; 2 (two) Tablets today, then 1 tablet daily for 4 days for 5 days Quantity: 6 {Tablet} Refills: 0 Ordered: 16-May-2024 MD Rock Arita Start: 16-May-2024 End: 21-May-2024 Status: Inactive Start: 11-11-2011 End: 11-16-2011 AZITHROMYCIN, 250MG (Oral Ta blet) ; 2 (two) Tablets today, then 1 tablet daily for 4 days for 5 days Quantity: 6 {Tablet} Refills: 0 Ordered: 11-Nov-2011 MD Rock Arita Start: 11-Nov-2011 End: 16-Nov-2011 Status: Inactive Comments: fill if needed Comment on above: fill if needed benzonatate 100 mg oral capsule (20 sources) Non-narcotic Antitussive Start: 01-10-2024 End: 03-25-2024 benzonatate 100 mg capsule ; 1 (one) capsule tid prn cough for 0 days Quantity: 30 {Capsule} Refills: 0 Ordered: 25-Mar-2024 JOSE M Marti Start: 10-Jan-2024 End: 25-Mar-2024 Status: Inactive Start: 11-10-2019 End: 04-28-2020 take 1 capsule by mouth three times daily as needed Tessalon Perles 100 MG Oral Capsule ; 1 (one) Cap Cap three times daily as needed for cough for 0 days Quantity: 30 {Capsule} Refills: 0 Ordered: 28-Apr-2020 JOSE M Nieves Ana Baron Start: 10-Nov-2019 End: 28-Apr-2020 Status: Inactive Comments: Medication taken as needed. swallow whole Comment on above: Medication taken as needed. swallow whole cefuroxime 500 mg oral tablet (20 sources) Cephalosporin Antibacterial Start: End: take 1 tablet by mouth twice daily Ceftin 500 MG Oral Tablet ; 1 (one) Tablet BID for 10 days Quantity: 20 {Tablet} Refills: 0 Ordered: 13-Jul-2017 AMIRA Pressley Start: 13-Jul-2017 End: 23-Jul-2017 Status: Inactive cephalexin 500 mg oral capsule (20 sources) Cephalosporin Antibacterial Start: End: take 2 capsules by mouth twice daily Cephalexin 500 MG Oral Capsule ; 2 (two) Capsule bid for 10 days Quantity: 40 {Capsule} Refills: 0 Ordered: 16-Aug-2018 MD Rock Arita Start: 16-Aug-2018 End: 26-Aug-2018 Status: Inactive chlorhexidine gluconate 1.2 mg/ml mouthwash (20 sources) Start: 014 End: take 5 mL by mouth three times daily as needed PERIDEX, 0.12% (Mouth/Throat Solution) ; 5 milliliter milliliter swish and spit three times daily as needed for 0 days Quantity: 240 {Milliliter} Refills: 0 Ordered: 03-Jun-2014 JOSE M Nieves Ana Baron Start: 14-Apr-2014 End: 03-Jun-2014 Status: Inactive Comments: Medication taken as needed. Comment on above: Medication taken as needed. ciprofloxacin 3 mg/ml / dexamethasone 1 mg/ml otic suspension (20 sources) Corticosteroid, Quinolone Antimicrobial Start: End: Ciprofloxacin-Dexamet hasone 0.3-0.1 % Otic Suspension ; 3 (three) Metric Drop two times daily for 7 days Quantity: 1 {Bottle} Refills: 0 Ordered: 28-Apr-2021 AMIRA Cameron Start: 28-Apr-2021 End: 05-May-2021 Status: Inactive ciprofloxacin 2 mg/ml / hydrocortisone 10 mg/ml otic suspension (20 sources) Corticosteroid, Quinolone Antimicrobial Start: End: Cipro HC 0.2-1 % Otic Suspension ; 3 (three) Drop(s) two times daily for 7 days Quantity: 10 {Milliliter} Refills: 0 Ordered: 28-Apr-2021 AMIRA Caemron Start: 27-Apr-2021 End: 28-Apr-2021 Status: Discontinued codeine phosphate 2 mg/ml / promethazine hydrochloride 1.25 mg/ml oral solution (20 sources) Opioid Agonist, Phenothiazine Start: End: 019 take 5-10 mL by mouth every six hours as needed for cough Promethazine-Codeine 6.25-10 MG/5ML Oral Syrup ; 5-10 Milliliter q 6hrs prn cough for 0 days Quantity: 240 {Milliliter} Refills: 0 Ordered: 28-Oct-2018 JOSE M Lizarraga Chanel Rolon Start: 19-Aug-2018 End: 28-Oct-2018 Status: Inactive Comments: wm Comment on above: wm cyclobenzaprine hydrochloride 10 mg oral tablet (20 sources) Muscle Relaxant Start: 023 End: 024 cyclobenzaprine 10 mg tablet ; 1 (one) Tablet Three times a day as needed for muscle spasm for 0 days Quantity: 30 {Tablet} Refills: 0 Ordered: 25-Mar-2024 JOSE M Marti Start: 18-Jan-2023 End: 25-Mar-2024 Status: Inactive Comments: Medication taken as needed. may cause drowsiness Start: 10-04-2017 End: 05-15-2018 take 1 tablet by mouth three times daily as needed for pain Cyclobenzaprine HCl 10 MG Oral Tablet ; 1 (one) Tablet tid prn back pain for 0 days Quantity: 45 {Tablet} Refills: 1 Ordered: 15-May-2018 MD Rock Arita Start: 04-Oct-2017 End: 15-May-2018 Status: Inactive Comment on above: Medication taken as needed. may cause drowsiness doxycycline hyclate 100 mg oral capsule (20 sources) Tetracycline-class Drug Start: 01-10-2024 End: 01-20-2024 doxycycline hyclate 100 mg capsule ; 1 (one) Capsule Capsule two times daily for 10 days Quantity: 20 {Capsule} Refills: 0 Ordered: 10-Jan-2024 MD Rock Arita Start: 10-Jan-2024 End: 20-Jan-2024 Status: Inactive Start: 11-10-2019 End: 11-20-2019 take 1 capsule by mouth twice daily Doxycycline Hyclate 100 MG Oral Capsule ; 1 (one) Capsule Capsule two times daily for 10 days Quantity: 20 {Capsule} Refills: 0 Ordered: 10-Nov-2019 JOSE M Nieves Ana Baron Start: 10-Nov-2019 End: 20-Nov-2019 Status: Inactive ergocalciferol 1.25 mg oral capsule (20 sources) Provitamin D2 Compound Start: 01-06-2020 End: 03-29-2021 take 1 capsule by mouth every week Ergocalciferol 1.25 MG (55318 UT) Oral Capsule ; 1 (one) Capsule q week for 0 days Quantity: 26 {Capsule} Refills: 0 Ordered: 29-Mar-2021 MD Rock Arita Start: 06-Jan-2020 End: 29-Mar-2021 Status: Inactive fexofenadine hydrochloride 180 mg oral tablet (20 sources) Histamine-1 Receptor Antagonist Start: 03-28-2022 End: 03-25-2024 Reina Allergy 180 mg tablet ; 1 (one) Tablet qd for 0 days Quantity: 90 {Tablet} Refills: 3 Ordered: 25-Mar-2024 JOSE M Marti Start: 28-Mar-2022 End: 25-Mar-2024 Status: Inactive fluticasone propionate 0.05 mg/actuat metered dose nasal spray (20 sources) Corticosteroid Start: 03-28-2022 End: 03-25-2024 take 2 spray(s) nasal route once fluticasone propionate 50 mcg/actuation nasal spray,suspension ; 2 (two) [place] per nostril per day for 0 days Quantity: 1 {Each} Refills: 5 Ordered: 25-Mar-2024 JOSE M Marti Start: 28-Mar-2022 End: 25-Mar-2024 Status: Inactive Comments: dispense nasal inhaler Start: 03-28-2022 take 2 spray(s) nasal route on ce Fluticasone Propionate 50 MCG/ACT Nasal Suspension ; 2 (two) [place] per nostril per day for 0 days Quantity: 1 {Each} Refills: 5 Ordered: 28-Mar-2022 JOSE M Marti Start: 28-Mar-2022 Comments: dispense nasal inhaler Comment on above: dispense nasal inhal er hydroCHLOROthiazide 25 mg oral tablet (20 sources) Thiazide Diuretic take 1 mg by mouth once daily as needed HYDROCHLOROTHIAZIDE , 25MG (Oral Tablet) ; 1 daily prn bl;oating (25 MG) Status: Inactive lactobacillus (4 sources) Start: 017 ACIDOPHILUS PROBIOTIC 10 MG CAPS as directed LACTOBACILLUS [id number] Carlos MORILLO levoFLOXacin 500 mg oral tablet (20 sources) Quinolone Antimicrobial Start: End: take 1 tablet by mouth once daily Levaquin 500 MG Oral Tablet ; 1 (one) Tablet Tablet daily for 10 days Quantity: 10 {Tablet} Refills: 0 Ordered: 14-Nov-2019 JOSE M Nieves Ana Baron Start: 14-Nov-2019 End: 24-Nov-2019 Status: Inactive Start: 08-11-2013 End: 08-21-2013 take 1 tablet by mouth once daily LEVAQUIN, 500MG (Oral Tablet) ; 1 Tab daily for 10 days Quantity: 10 {Tab} Refills: 0 Ordered: 11-Aug-2013 AMIRA Call Start: 11-Aug-2013 End: 21-Aug-2013 Status: Inactive methylPREDNISolone 4 mg oral tablet (20 sources) Corticosteroid Start: 08-21-2018 End: 10-28-2018 Medrol 4 MG Oral Tablet Therapy Pack ; 1 (one) Tab Ther Pack as directed for 0 days Quantity: 1 {Package} Refills: 0 Ordered: 28-Oct-2018 JOSE M Lizarraga Start: 21-Aug-2018 End: 28-Oct-2018 Status: Inactive Start: 12-28-2014 End: 01-03-2015 MEDROL (KEVIN), 4MG (Oral Tabl et) ; 1 Tab as directed for 6 days Quantity: 1 {Dose_Pack} Refills: 0 Ordered: 28-Dec-2014 JOSE M Johns Start: 28-Dec-2014 End: 03-Jan-2015 Status: Inactive [facility] (10 sources) Start: 06-26-2017 OSTEO BI-FLEX/ 5-LOXIN ADVANCED TABS Once daily [facility] [id number] Lenka Mar DC MULTIPLE VITAMINS-IRON (4 sources) Start: 08-01-2017 ONE DAILY MULTIVITAMIN/IRON TABS as directed MULTIPLE VITAMINS-IRON [id number] Carlos MORILLO naproxen 500 mg delayed release oral tablet (20 sources) Nonsteroidal Anti-inflammatory Drug Start: 08-28-2023 End: 10-23-2023 EC-Naproxen 500 mg tablet,delayed release ; 1 (one) tablet bid prn for 0 days Quantity: 60 {Tablet} Refills: 5 Ordered: 23-Oct-2023 MD Rock Arita Start: 28-Aug-2023 End: 23-Oct-2023 Status: Inactive nystatin 100 unt/mg topical powder (20 sources) Polyene Antifungal Start: 09-22-2022 End: 03-25-2024 nystatin 100,000 unit/gram topical powder ; 1 (one) Powder apply tid for 0 days Quantity: 15 {Gram} Refills: 1 Ordered: 25-Mar-2024 JOSE M Marti Start: 22-Sep-2022 End: 25-Mar-2024 Status: Inactive ofloxacin 3 mg/ml otic solution (20 sources) Quinolone Antimicrobial Start: 11-09-2023 End: 03-25-2024 ofloxacin 0.3 % ear drops ; 10 drops into affected ear once daily x 7 days for 0 days Quantity: 10 {Milliliter} Refills: 0 Ordered: 25-Mar-2024 JOSE M Marti Start: 09-Nov-2023 End: 25-Mar-2024 Status: Inactive Start: 11-12-2020 End: 03-29-2021 Ofloxacin 0.3 % Ophthalmic S olution ; 6 Metric Drop daily for 0 days Quantity: 1 {Bottle} Refills: 0 Ordered: 29-Mar-2021 JOSE M Marti Start: 12-Nov-2020 End: 29-Mar-2021 Status: Inactive ondansetron 4 mg oral tablet (4 sources) Serotonin-3 Receptor Antagonist Start: 08-01-2017 ZOFRAN 4 MG TABS 1 tablet every 8 hours as needed ONDANSETRON HCL [id number] Carlos MORILLO PARoxetine hydrochloride 20 mg oral tablet (20 sources) Serotonin Reuptake Inhibitor Start: 09-30-2013 End: 09-30-2013 take 1 tablet by mouth once daily PAROXETINE HCL, 20MG (Oral Tablet) ; 1 (one) Tablet daily for 0 days Quantity: 30 {Tablet} Refills: 3 Ordered: 30-Sep-2013 JOSE M Nunes Start: 30-Sep-2013 End: 30-Sep-2013 Status: Inactive predniSONE 20 mg oral tablet (20 sources) Start: 01-18-2023 End: 04-12-2023 predniSONE 20 mg tablet ; 1 (one) Tablet take as directed for 0 days Quantity: 20 {Tablet} Refills: 0 Ordered: 12-Apr-2023 JOSE M Marti Start: 18-Jan-2023 End: 12-Apr-2023 Status: Inactive Comments: Take 3tabs qd for 3 days thenTake 2tabs qd for 3 days thenTake 1tab qd for 3 days thenTake 1/2tab qd for 4 days. Start: 04-27-2017 End: 05-11-2017 take 3 tablets by mouth once daily, then take 2 tablets by mouth once daily, then take 1 tablet by mouth once daily, then take 0.5 tablet by mouth once daily PredniSONE 20 MG Oral Tablet ; Tablet Tablet for 0 days Quantity: 20 {Tablet} Refills: 0 Ordered: 11-May-2017 JOSE M Joseph Start: 27-Apr-2017 End: 11-May-2017 Status: Inactive Comments: Take 3tabs qd for 3 days thenTake 2tabs qd for 3 days thenTake 1tab qd for 3 days thenTake 1/2tab qd for 4 days. Comment on above: Take 3tabs qd for 3 days thenTake 2tabs qd for 3 days thenTake 1tab qd for 3 days thenTake 1/2tab qd for 4 days. promethazine hydrochloride 1.25 mg/ml oral solution (20 sources) Phenothiazine Start: 01-10-20 24 End: 03-25-20 24 take 10 mL by mouth every six hours as needed for cough promethazine 6.25 mg/5 mL oral syrup ; 10 Milliliter q 6hrs prn cough for 0 days Quantity: 240 {Milliliter} Refills: 0 Ordered: 25-Mar-2024 JOSE M Marti Start: 10-Jan-2024 End: 25-Mar-2024 Status: Inactive raNITIdine 150 mg oral tablet (20 sources) Histamine-2 Receptor Antagonist take 1 tablet by mouth once daily as needed ZANTAC 150 MAXIMUM STRENGTH, 150MG (Oral Tablet) ; 1 daily prn (150 MG) Status: Inactive temazepam 15 mg oral capsule (20 sources) Benzodiazepine Start: 05-15-20 18 End: 10-28-19 19 take 1 capsule by mouth once daily at bedtime as needed for sleep Restoril 15 MG Oral Capsule ; 1 (one) Capsule Capsule qhs prn sleep for 0 days Quantity: 60 {Capsule} Refills: 0 Ordered: 28-Oct-2018 JOSE M Lizarraga Start: 15-May-2018 End: 28-Oct-2018 Status: Inactive Comments: [facility] 05/[facility] Comment on above: [facility] 05/15/[facility] traZODone hydrochloride 50 mg oral tablet (20 sources) Serotonin Reuptake Inhibitor Start: 05-31-20 16 End: 05-11-20 17 take 1 tablet by mouth once daily at bedtime TraZODone HCl 50 MG Oral Tablet ; 1 Tablet qhs for 0 days Quantity: 90 {Tablet} Refills: 1 Ordered: 11-May-2017 JOSE M Joseph Start: 31-May-2016 End: 11-May-2017 Status: Inactive Comments: [facility] Comment on above: [facility] triamcinolone acetonide 1 mg/ml topical cream (20 sources) Corticosteroid Start: 01-20-20 End: 04-28-20 Triamcinolone Acetonide 0.1 % External Cream ; 1 (one) application to affected areas QID for 0 days Quantity: 80 {Gram} Refills: 0 Ordered: 28-Apr-2020 JOSE M Nieves Ana Baron Start: 20-Jan-2020 End: 28-Apr-2020 Status: Inactive Start: 03-28-2014 End: 06-03-2014 TRIAMCINOLONE ACETONIDE, 0.0 25% (External Cream) ; 1 (one) application(s) application(s) four times daily for 0 days Quantity: 80 Refills: 0 Ordered: 03-Jun-2014 JOSE M Nieves Ana Baron Start: 28-Mar-2014 End: 03-Jun-2014 Status: Inactive Problems Active Problems Problem Classification Problem Date Documented Date Episodic/Chronic Abdominal pain (20 sources) Pain in female pelvis; Translations: [Pelvic and perineal pain] 04-11-2023 Episodic Acute bronchitis (20 sources) Acute bronchitis 07-15-2013 Episodic Allergic reactions (20 sources) Contact dermatitis and other eczema due to plants [except food] 04-01-2014 Episodic Anxiety disorders (20 sources) Generalized anxiety disorder; Translations: [Generalized anxiety disorder] 04-11-2023 Chronic Chronic obstructive pulmonary disease and bronchiectasis (20 sources) Bronchitis; Translations: [Bronchitis, not specified as acute or chronic] 04-11-2023 Episodic Diseases of white blood cells (20 sources) Leukocytosis; Translations: [Elevated white blood cell count, unspecified] 04-11-2023 Chronic Essential hypertension (10 sources) Hypertensive disorder; Translations: [Essential (primary) hypertension] Onset: 06-26-2017 06-26-2017 Chronic Genitourinary symptoms and ill-defined conditions (20 sources) Dysuria; Translations: [Dysuria] 11-04-2018 Episodic Immunizations and screening for infectious disease (20 sources) Requires diphtheria, tetanus and pertussis vaccination; Translations: [Encounter for immunization] 04-11-2023 Episodic Malaise and fatigue (20 sources) Fatigue; Translations: [Other fatigue] 05-29-2016 Episodic Nonspecific chest pain (20 sources) Chest pain; Translations: [Chest pain, unspecified] 04-11-2023 Episodic Nutritional deficiencies (20 sources) Vitamin D deficiency; Translations: [Vitamin D deficiency, unspecified] 04-11-2023 Chronic Other aftercare (20 sources) Drug indicated; Translations: [Other keno terminal operator (current) drug therapy] 09-12-2010 Episodic Other connective tissue disease (20 sources) Heel pain; Translations: [Pain in unspecified foot] 04-11-2023 Episodic Other connective tissue disease (20 sources) Pain in left arm; Translations: [Pain in left arm] 05-27-2015 Episodic Other ear and sense organ disorders (20 sources) Otitis externa of right ear; Translations: [Unspecified otitis externa, right ear] 11-12-2020 Chronic Other ear and sense organ disorders (20 sources) Otitis externa; Translations: [Unspecified otitis externa, unspecified ear] 11-09-2023 Chronic Other ear and sense organ disorders (20 sources) Otalgia, right ear; Translations: [Otalgia, unspecified] 04-11-2023 Episodic Other injuries and conditions due to external causes (20 sources) Puncture wound - injury; Translations: [Other injury of unspecified body region, initial encounter] 04-11-2023 Episodic Other injuries and conditions due to external causes (12 sources) Motion sickness; Translations: [Motion sickness, initial encounter] 05-05-2024 Episodic Other liver diseases (20 sources) Elevated liver enzymes level; Translations: [Abnormal levels of other serum enzymes] 04-11-2023 Episodic Other non-traumatic joint disorders (20 sources) Hip pain; Translations: [Pain in left hip] 10-23-2023 Episodic Other nutritional; endocrine; and metabolic disorders (20 sources) Body mass index 30+ - obesity; Translations: [Obesity, unspecified] 04-11-2023 Chronic Other screening for suspected conditions (not mental disorders or infectious disease) (20 sources) Patient encounter status; Translations: [Encounter for screening for lipoid disorders] 04-11-2023 Episodic Other skin disorders (20 sources) Sebaceous cyst 07-15-2013 Episodic Other upper respiratory disease (20 sources) Seasonal allergy; Translations: [Other seasonal allergic rhinitis] 04-11-2023 Chronic Other upper respiratory disease (20 sources) Ulcer of larynx; Translations: [Other diseases of larynx] 04-14-2014 Episodic Other upper respiratory infections (20 sources) Sinusitis; Translations: [Chronic sinusitis, unspecified] 11-10-2019 Chronic Other upper respiratory infections (20 sources) Acute frontal sinusitis; Translations: [Acute frontal sinusitis, unspecified] 12-25-2014 Episodic Pneumonia (except that caused by tuberculosis or sexually transmitted disease) (20 sources) Pneumonia; Translations: [Pneumonia, unspecified organism] 11-18-2019 Episodic Residual codes; unclassified (20 sources) Insomnia; Translations: [Insomnia, unspecified] 04-11-2023 Episodic Spondylosis; intervertebral disc disorders; other back problems (10 sources) Cervical radiculopathy; Translations: [Radiculopathy, cervical region] Onset: 06-26-2017 06-26-2017 Chronic Spondylosis; intervertebral disc disorders; other back problems (20 sources) Backache; Translations: [Dorsalgia, unspecified] 04-11-2023 Episodic Sprains and strains (20 sources) Strain of thoracic region; Translations: [Strain of muscle and tendon of back wall of thorax, initial encounter] 06-19-2017 Episodic Thyroid disorders (20 sources) Hyperthyroidism; Translations: [Hypothyroidism] Onset: 06-26-2017 06-26-2017 Chronic Unclassified (20 sources) Well Adult, female - The patient [...] for Well Adult, female : reviewed by [facility] 05-31-2016 Unclassified (20 sources) Follow Up for Multiple Chronic Conditions [...] also had GB removal March 21 04-08-2013 Unclassified (14 sources) Chest pain - The pain has been occurring in an intermittent ( comes and goes . Pt has had pressure in chest 6-7 times, always while actively moving/walking. Family history of heart disease.) pattern for 1 month. The pain is described as a pressure sensation. Note for Chest pain : Pt gets some SOB w/ episodes. reviewed by [facility] 03-14-2024 Past or Other Problems Problem Classification Problem Date Documented Da te Episodic/Chronic Influenza (5 sources) Influenza 05-16-2024 Nausea and vomiting (4 sources) Nausea; Translations: [Nausea] Onset: 08-01-2017 08-01-2017 Episodic Other bone disease and musculoskeletal deformities (20 sources) Segmental and somatic dysfunction; Translations: [Segmental and somatic dysfunction of thoracic region] Onset: 06-26-2017 06-26-2017 Episodic Other gastrointestinal disorders (4 sources) Diarrhea; Translations: [Diarrhea, unspecified] Onset: 08-01-2017 08-01-2017 Episodic Unclassified (20 sources) Well adult female - The patient feels well with no complaints, has good energy level and is sleeping poorly. The first day of the last menstrual period was : (04/08/23). The patient has a balanced diet. The patient does not exercise. The patient sleeps 8 (split up) hours per night. Note for Well adult female : reviewed by [facility] 04-12-2023 Unclassified (20 sources) Back pain - The onset of [...] but she is out now 01-18-2023 Unclassified (20 sources) Laceration - The injury occurred on [...] yrs none in our charts reviewed by [facility] 04-04-2022 Unclassified (20 sources) Well Adult, female - The patient feels well with no complaints, has decreased energy level (works nights) and is sleeping poorly. The first day of the last menstrual period was : (03-23-22). The patient has a balanced diet and takes supplemental vitamins. The patient does not exercise. The patient sleeps 6 hours per night. 03-28-2022 Unclassified (20 sources) Foot pain - The pain is [...] Note for Foot pain : reviewed by [facility] 06-06-2021 Unclassified (20 sources) Ear pain - The onset of [...] a little at this point. 04-27-2021 Unclassified (20 sources) Well adult female - The patient [...] mg a few weeks ago reviewed by [facility] 03-29-2021 Unclassified (20 sources) Ear pain - The onset of [...] has taken the edge off 11-12-2020 Unclassified (20 sources) Well Adult, female - The patient [...] for Well Adult, female : reviewed by [facility] 04-28-2020 Unclassified (20 sources) Cold Symptoms - Note for Upper respiratory infection : Was seen in office 11-10-19 with diagnosis of pneumonia and given prescriptions for Doxycycline and then on November 11 went to [facility] and got an rx for steroids had negative flu test in ER. On November 13 called in here and Dr Arita added the Levaquin. Is improving but does not feel well enough to go to work. Continues with productive cough, shortness of breath and extreme fatigue. 11-18-2019 Unclassified (20 sources) Cold Symptoms - Symptoms include sneezing, [...] of breath 5 days ago. 11-10-2019 Unclassified (20 sources) Well adult female - The first [...] gets hers pap test done at Dr Amin'praful reviewed by [facility] 04-28-2019 Unclassified (20 sources) UTI - Symptoms include dysuria, urinary [...] : lmp-10/15/18last pap summer 2017 reviewed by B 10-28-2018 Unclassified (20 sources) Cold Symptoms - Symptoms include nasal [...] Tylenol about 1 hour ago. reviewed by [facility] 08-16-2018 Unclassified (20 sources) Well Adult, female - The patient [...] Well Adult, female : reviewed by B 05-15-2018 Unclassified (20 sources) Cold Symptoms - Symptoms include dry [...] hours which does help some. 07-13-2017 Unclassified (20 sources) Well adult female - The patient [...] wants left ear looked at reviewed by [facility] 05-11-2017 Unclassified (20 sources) Shoulder pain - The onset of [...] to lift arm above head. reviewed by [facility] 04-27-2017 Unclassified (20 sources) Cold Symptoms - Symptoms include nasal [...] an individual with similar symptoms. 09-01-2016 Unclassified (20 sources) Back pain - The onset of [...] factors. No other associated symptoms. reviewed by [facility] 06-09-2016 Unclassified (20 sources) Fatigue - The onset of the [...] minutes. Atuvan did not help. 11-08-2015 Unclassified (20 sources) Well Adult, female - The patient feels well with no complaints, has good energy level and is sleeping well. The patient has a balanced diet and takes supplemental vitamins. The patient exercises weekly. The patient sleeps 7 hours per night. Note for Well Adult, female : reviewed by [facility] 05-28-2015 Unclassified (20 sources) Cold Symptoms - Symptoms include nasal congestion, productive cough (green sputum), fever (100) and general malaise (some shortness of breath). The onset was gradual 1 week(s) ago. The symptoms occur constantly. The patient describes this as moderate in severity and worsening. Current treatment includes non-prescription cold medication (Mucinex, otc cold med). Risk factors do not include smoking. 12-25-2014 Unclassified (20 sources) Abdominal pain - The onset of [...] had a cholecystectomy in 2012. 08-10-2014 Unclassified (20 sources) Well Adult, female - The patient [...] : Wellness physical for insurance. reviewed by [facility] 06-03-2014 Unclassified (20 sources) Sore throat - Sore in back throat for a couple of days and getting worse. No fever. Is leaving for vacation tomorrow. reviewed by [facility] 04-14-2014 Unclassified (20 sources) poisin adenike - Patient was seen 4 days ago for poison adenike (positive exposure). She was given kenalog 60mg and decadron 4mg. Has been using prescription cream alternating with an OTC anti-itch spray. Has taken claritin and benadryl on occasion. New lesions continue to appear. Very itchy all over and can't quit scratching. 04-01-2014 Unclassified (20 sources) Rash - The onset of the [...] spray, pills and cortisone cream. 03-28-2014 Unclassified (20 sources) ulcer in throat - Sore spot in throat for a week. Thinks she hit the back of her throat with the toothbrush. She has not had URI symptoms. She has gargled with salt water. Is not resolving like she would expect and now hurting up to left ear. 10-30-2013 Unclassified (20 sources) Cold Symptoms - Symptoms include nasal [...] beginning of july with augmentin 08-11-2013 Unclassified (5 sources) Cyst - Also complains of painful cyst in groin area for 1 week and getting worse. No drainage. reviewed by [facility] 07-15-2013 Unclassified (5 sources) [ADDITIONAL REASON] Cold Symptoms - Symptoms include hoarseness, dry cough and productive cough, but do not include fever. The onset was sudden 2 week(s) ago. The symptoms occur constantly. The patient describes this as moderate in severity and unchanged. Current treatment includes cough suppressants. Note for Upper respiratory infection : reviewed by [facility] 07-15-2013 Unclassified (20 sources) Well Adult, female - The patient [...] for Well Adult, female : reviewed by [facility] 06-02-2013 Unclassified (5 sources) Abdominal pain - The onset of the abdominal pain has been gradual and has been occurring in a persistent pattern for weeks. The pain is described as a moderate sharp pain (RUQ. DId have U/S micheal in 2008 which showed gall stones and pt feels it is probably time for referral to have this removed.). The pain radiates to the right flank. Note for Abdominal pain : reviewed by [facility] 02-21-2013 Unclassified (20 sources) [ADDITIONAL REASON] Anxiety - The onset [...] associated symptoms. She sees a psychologist in [place]. She was on trazadone 20 years ago for sleep. Has never been on daily meds for this. Has never been on ativan.She states she was also dx w depression and was on Zoloft and Wellbutrin. Helped w depression. 02-21-2013 Unclassified (7 sources) [ADDITIONAL REASON] Insomnia - The patient is [...] is an every day occurrence. reviewed by [facility] 02-21-2013 Unclassified (20 sources) Well Adult, female - The patient [...] female : reviewed by B 05-10-2012 Unclassified (20 sources) No better - Pt here today [...] and nauseaus. reviewed by B 11-13-2011 Unclassified (20 sources) Cold Symptoms - Symptoms include sneezing, [...] c/o chest tightness and s.o.b. 11-11-2011 Unclassified (20 sources) Cold Symptoms - Symptoms include nasal congestion, dry cough, wheezing, fever and general malaise. The onset was sudden 1 day(s) ago (Started with cold sx 5 days ago, but fever for 1 day). The patient is not currently being treated for this problem. 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 Note for Cold Symptoms : Pt states she started ov er the weekend with cold sx, then spiked a fever yesterday of 102.0 Has some shortness of breath. Pt states she did have her flu shot this year. 10-20-2010 Unclassified (20 sources) Cyst? - Pt states that she [...] time she get it checked. 07-15-2010 Unclassified (20 sources) Cold Symptoms - Symptoms include hoarseness, dry cough and productive cough, but do not include fever. The onset was sudden 2 week(s) ago. The symptoms occur constantly. The patient describes this as moderate in severity and unchanged. Current treatment includes cough suppressants. Note for Upper respiratory infection : reviewed by [facility] 07-15-2013 Unclassified (20 sources) [ADDITIONAL REASON] Cyst - Also complains of painful cyst in groin area for 1 week and getting worse. No drainage. reviewed by [facility] 07-15-2013 Unclassified (20 sources) Insomnia - The patient is not [...] is an every day occurrence. reviewed by [facility] 02-21-2013 Unclassified (20 sources) [ADDITIONAL REASON] Abdominal pain - The [...] Note for Abdominal pain : reviewed by [facility] 02-21-2013 Unclassified (20 sources) Hip pain - The onset of [...] Note for Hip pain : reviewed by [facility] 10-23-2023 Unclassified (20 sources) Ear pain - The onset of the pain has been sudden and has been occurring in a persistent pattern for 3 days. The course has been increasing. The pain is described as a moderate sharp pain, pressure and plugged. The pain is described as being located in the inner ear. The pain is felt in the left ear. The symptoms have been associated with decreased hearing. Note for Ear pain : Patient was swimming and snorkeling in the ocean this past week while on vacation. 11-09-2023 Unclassified (1 source) Cold Symptoms 01-10-2024 Unclassified (20 sources) Cold Symptoms - Symptoms include nasal congestion, runny nose, productive cough, wheezing, fever (highest 101), general malaise and headache. The onset was gradual 8 day(s) ago. The symptoms occur constantly. The patient describes this as mild and worsening. Current treatment includes antibiotics (on augmentin from urgent care), acetaminophen and NSAIDs (at 12:30). Note for Upper respiratory infection : went to urgent care sunday- L ear infection given augmentin- ear pain and ST are better, now feeling it in her chestlung pain, slightly SOBnegative covid test at home reviewed by [facility] 01-10-2024 Unclassified (2 sources) Anxiety - The onset of the anxiety [...] associated symptoms. She sees a psychologist in [place]. She was on trazadone 20 years ago for sleep. Has never been on daily meds for this. Has never been on ativan.She states she was also dx w depression and was on Zoloft and Wellbutrin. Helped w depression. 02-21-2013 Unclassified (13 sources) Well adult female - The patient feels well with no complaints, has good energy level and is sleeping poorly (just due to being on 3rd shift). The first day of the last menstrual period was : (02/22/2024). The patient has a balanced diet. The patient does not exercise. The patient sleeps 6 hours per night. Note for Well adult female : patient gets Pap smear with Marita reviewed by [facility] 03-25-2024 Results Test Name Value Interpretation Reference Range Facility Laboratory - Chemistry and C hemistry - challengeon 03-18-2024 Albumin [Mass/Vol] 3.4 g/dL Normal 3.2 - 5.0 g/dL [facility], [facility], [facility] Albumin/Globulin [Mass ratio] 0.8 {ratio} Abnormal 0.9 - 2.4 {RATIO} [facility], [facility]; [facility], [facility] ALT [Catalytic activity/Vol] 40 U/L Normal 13 - 56 U/L [facility], [facility].; [facility], [facility] AST [Catalytic activity/Vol] 32 U/L Normal 15 - 37 U/L [facility], [facility]; [facility] Bilirubin [Mass/Vol] 0.30 mg/dL Normal 0.20 - 1.00 mg/dL [facility], [facility].; [facility], [facility]. Chloride [Moles/Vol] 104 mmol/L Normal 98 - 10 7 mmol/L [facility], [facility].; [facility], [facility]. Cholesterol [Mass/Vol] 192 mg/dL Normal [facility], [facility].; [facility], [facility]. Cholesterol in HDL [Mass/Vol] 46 mg/dL Normal [facility].; [facility], [facility]. Cholesterol in LDL [Mass/Vol] 117 mg/dL Normal 0 - 130 mg/dL [facility], [facility].; [facility], [facility]. Cholesterol in VLDL [Mass/Vol] 29 mg/dL Normal 5 - 40 mg/dL [facility], [facility].; [facility], [facility]. CO2 [Moles/Vol] 24.0 mmol/L Normal 21.0 - 32.0 mmol/L [facility], [facility].; [facility], [facility]. Creatinine [Mass/Vol] 0.71 mg/dL Normal 0.55 - 1.02 mg/dL [facility], [facility].; [facility], [facility]. GFR/1.73 sq M.predicted among non-blacks MDRD (S/P/Bld) [Vol rate/Area] 91 mL/min/{1.73_m 2} Normal [facility], [facility].; [facility], [facility]. Globulin (S) [Mass/Vol] 4.2 g/dL Normal 2.2 - 4.2 g/dL [facility], [facility].; [facility] Glucose [Mass/Vol] 101 mg/dL Normal 74 - 106 mg/dL [facility].; [facility], [facility]. Magnesium [Mass/Vol] 9.0 mg/dL Normal 8.5 - 1 0.1 mg/dL [facility], [facility].; [facility] Potassium [Moles/Vol] 4.3 mmol/L Normal 3.5 - 5.1 mmol/L [facility], [facility].; [facility] Sodium [Moles/Vol] 135 mmol/L Abnormal 136 - 145 mmol/L [facility] Triglyceride [Mass/Vol] 146 mg/dL Normal [facility]; [facility] Urea nitrogen [Mass/Vol] 13 mg/dL Normal 7 - 18 mg/dL [facility].; [facility] No Panel Informationon 03-18 ALK P 83 U/L Normal 45 - 117 U/L [facility]; [facility] BUN/CRE 18.3 {RATIO} Normal 10 - 20 {RATIO} [facility]; [facility] EST GFR - AA 110 mL/min Normal [facility]; [facility], [facility] GAP 7 Normal 5 - 15 [facility]; [facility], [facility] T PROT 7.6 g/dL Normal 6.4 - 8.2 g/dL [facility]; [facility], [facility] TSH 1.72 {uIU/mL} Normal 0.358 - 3.74 {uIU/mL} [facility]; [facility], [facility] Vitamin D 25-OH 30.9 ng/mL Normal [facility]; [facility], [facility] Laboratory - Chemistry and C hemistry - challengeon 03-29-2023 Albumin [Mass/Vol] 3.4 g/dL Abnormal 3.5 - 5.0 g/dL [facility]; [facility], [facility] Albumin/Globulin [Mass ratio] 0.8 {ratio} Abnormal [facility]; [facility], [facility]. ALP [Catalytic activity/Vol] 90 U/L Normal 50 - 136 U/L [facility].; [facility], [facility]. ALT [Catalytic activity/Vol] 58 mmol/L Abnormal 12 - 49 mmol/L [facility].; [facility], [facility]. AST [Catalytic activity/Vol] 38 U/L Abnormal 15 - 37 U/L [facility], [facility].; [facility], [facility] Bilirubin [Mass/Vol] 0.30 mg/dL Normal 0.3 - 1 .0 mg/dL [facility].; [facility], [facility]. Calcium [Mass/Vol] 8.7 mg/dL Normal 8.4 - 10. 6 mg/dL [facility].; [facility], [facility]. Chloride [Moles/Vol] 102 mmol/L Normal 98 - 11 0 mmol/L [facility].; [facility], [facility]. Cholesterol [Mass/Vol] 186 mg/dL Normal 0 - 200 mg/dL [facility].; [facility], [facility]. Cholesterol in HDL [Mass/Vol] 46 mg/dL Normal 40 - 60 mg/dL [facility].; [facility], [facility]. Cholesterol in LDL [Mass/Vol] 100 mg/dL Normal 50.0 - 130.0 mg/dL [facility].; [facility], [facility] Cholesterol in VLDL [Mass/Vol] 40 mg/dL Normal [facility].; [facility], [facility] Cholesterol.total/Cho lesterol in HDL [Mass ratio] - Normal 0 - 5.0 [facility].; [facility], [facility]. CO2 [Moles/Vol] 27.0 {simin/L} Normal 22.0 - 32.0 {simin/L} [facility].; [facility], [facility]. Creatinine [Mass/Vol] 0.64 mg/dL Normal 0.6 - 1.4 mg/dL [facility], [facility].; [facility], [facility]. Globulin (S) [Mass/Vol] 4.4 g/dL Abnormal 1.5 - 3.8 g/dL [facility].; [facility], [facility]. Glucose [Mass/Vol] 110 mg/dL Abnormal 75 - 105 mg/dL [facility], [facility].; [facility], [facility]. Potassium [Moles/Vol] 4.0 mmol/L Normal 3.50 - 5.00 meq/L [facility].; [facility], [facility]. Protein [Mass/Vol] 7.8 g/dL Normal 6.4 - 8.2 g/dL [facility], [facility].; [facility], [facility]. Sodium [Moles/Vol] 135 mmol/L Abnormal 136 - 145 mmol/L [facility].; [employer] Triglyceride [Mass/Vol] 198 mg/dL Abnormal 40 - 150 mg/dL [facility] [employer].; [employer] Urea nitrogen [Mass/Vol] 13 mg/dL Normal 7.0 - 20.0 mg/dL [facility] [email or web address] [facility].; [employer] Urea nitrogen/Creatinine [Mass ratio] 20.2 mg/mg Normal 0 - 30 [facility] [employer].; [employer] No Panel Informationon 03-29 GFR 103 Normal [facility] [email or web address] [facility].; [employer]. GFR2 124 Normal [facility] [employer].; [employer]. TSH 2.89 {uIU/mL} Normal 0.358 - 3.74 {uIU/mL} [facility] [employer].; [employer]. Vitamin D 25-OH 41.2 ng/mL Normal [facility] [employer].; [employer] No Panel Informationon 03-24 TSH 2.86 {uIU/mL} Normal 0.358 - 3.74 {uIU/mL} [employer].; [employer] Vitamin D 25-OH 44.9 ng/mL [facility] [employer]. No Panel Informationon 03-24 TSH 2.83 {uIU/mL} Normal 0.358 - 3.74 {uIU/mL} [employer].; [employer] Vitamin D 25-OH 29.2 ng/mL Normal [facility] [employer].; [employer] No Panel Informationon 03-29 TSH 1.93 {uIU/mL} Normal 0.358 - 3.74 {uIU/mL} [employer].; [employer] Vitamin D 25-OH 52.4 ng/mL Normal [facility] [employer].; [employer]. No Panel Informationon 07-25 TSH 4.85 {uIU/mL} Abnormal 0.358 - 3.74 {uIU/mL} [employer].; [employer]. Vitamin D 25-OH 31.0 ng/mL Normal 29.95 - 100. 01 ng/mL [employer].; [employer]. No Panel Informationon 04-24 TSH 4.54 {uIU/mL} Abnormal 0.358 - 3.74 {uIU/mL} [employer].; [employer]. Vitamin D 25-OH 30.5 ng/mL Normal 29.95 - 100. 01 ng/mL [employer].; [employer]. No Panel Informationon 02-21 Vitamin D 25-OH 25.7 ng/mL Abnormal 29.95 - 100. 01 ng/mL [employer].; [employer]. Laboratory - Chemistry and C hemistry - challengeon 10-28-2018 Bilirubin Ql (U) Negative [facility] [employer]. Ketones Ql (U) Negative Normal [facility] [employer]. pH (U) 6.0 [pH] Normal [employer]. Specific gravity (U) [Rel density] 1.015 Normal [facility]; [employer]. Urobilinogen Qn (U) 0.2 mg/dL Normal [facility] [employer]. Laboratory - Hematology and Cell countson 10-28-2018 Hemoglobin Ql (U) Negative Normal [employer].; [employer] Laboratory - Specimen inform ationon 10-28-2018 Appearance (U) Clear Normal [facility] [employer].; [employer]. Color (U) yellow Normal [employer].; [employer] Laboratory - Urinalysison Glucose Test strip (U) [Mass/Vol] Negative Normal [employer].; [employer]. Leukocyte esterase Test strip Ql (U) Negative Normal [employer].; [employer]. Nitrite Ql (U) Negative Normal [facility].; [facility]. Protein Ql (U) Negative Normal [facility].; [facility]. No Panel Informationon 08-28 Vitamin D 25-OH 23.8 ng/mL Abnormal 29.95 - 100. 01 ng/mL [facility].; [facility] No Panel Informationon 05-17 Vitamin D 25-OH 20.8 ng/mL Abnormal 29.95 - 100. 01 ng/mL [facility] [facility].; [facility] [employer], [employer]. Laboratory - Chemistry and C hemistry - challengeon 05-06-2018 Albumin [Mass/Vol] 3.7 g/dL Normal 3.2 - 5.0 g/dL [facility].; [facility], [facility] Albumin/Globulin [Mass ratio] 0.9 {ratio} Normal 0.9 - 2.4 {RATIO} [facility].; [facility]. ALT [Catalytic activity/Vol] 66 U/L Abnormal 13 - 56 U/L [facility].; [employer], [employer]. AST [Catalytic activity/Vol] 42 U/L Abnormal 15 - 37 U/L [facility].; [employer], [employer]. Bilirubin [Mass/Vol] 0.40 mg/dL Normal 0.20 - 1.00 mg/dL [facility].; [employer], [facility]. Calcium [Mass/Vol] 8.5 mg/dL Normal 8.5 - 10. 1 mg/dL [facility].; [employer], [facility]. Chloride [Moles/Vol] 104 mmol/L Normal 98 - 10 7 mmol/L [facility].; [employer], [employer]. CO2 [Moles/Vol] 24.0 mmol/L Normal 21.0 - 32.0 mmol/L [facility].; [employer], [facility]. Creatinine [Mass/Vol] 0.66 mg/dL Normal 0.55 - 1.02 mg/dL [facility].; [employer], [facility]. GFR/1.73 sq M.predicted among non-blacks MDRD (S/P/Bld) [Vol rate/Area] 102 mL/min/{1.73_m 2} Normal [facility].; [employer] Globulin (S) [Mass/Vol] 3.9 g/dL Normal 2.2 - 4.2 g/dL [facility].; [employer], [employer]. Glucose [Mass/Vol] 100 mg/dL Normal 74 - 106 mg/dL [facility].; [facility] [facility] Potassium [Moles/Vol] 4.0 mmol/L Normal 3.5 - 5.1 mmol/L [facility].; [employer] Sodium [Moles/Vol] 141 mmol/L Normal 136 - 145 mmol/L [facility].; [employer]. Urea nitrogen [Mass/Vol] 16 mg/dL Normal 7 - 18 mg/dL [facility].; [employer] No Panel Informationon 05-06 ALK P 86 U/L Normal 45 - 117 U/L [facility].; [employer] BUN/CRE 24.2 {RATIO} Abnormal 10 - 20 {RATIO} [employer].; [employer] EST GFR - AA 123 mL/min Normal [facility].; [employer]. GAP 13 Normal 5 - 15 [employer].; [employer]. T PROT 7.6 g/dL Normal 6.4 - 8.2 g/dL [facility].; [employer]. TSH 2.50 {uIU/mL} Normal 0.358 - 3.74 {uIU/mL} [employer].; [employer]. Microbiology: ENTERIC PATHOG EN PANEL STOOLon 08-03-2017 EP PANEL . Invalid Interpretation Code [facility] Work Phone: Microbiology: (P) CDIFF (Mol ecular)on 08-02-2017 CDIFF . Invalid Interpretation Code [facility] Work Phone: Office Visit: UC: diarrhea, nauseaon 08-01-2017 Documentation of current medications (procedure) Done Invalid Interpretation Code [facility] Work Phone: Fall risk assessment No Invalid Interpretation Code [facility] Work Phone: Office Visit: Spine Visit- R shoulder painon 07-09-2017 Documentation of current medications (procedure) Done Invalid Interpretation Code [facility] Work Phone: Office Visit: Spine Visit- R sided shoulder painon 07-04-2017 Documentation of current medications (procedure) Done Invalid Interpretation Code [facility] Work Phone: Protein mass conc Done Invalid Interpretation Code [facility] Work Phone: Office Visit: Spine Visit- R sided shoulder painon 06-26-2017 Alcoholism counseling (procedure) no Invalid Interpretation Code [facility] Work Phone: Dietary management education, guidance, and counseling (procedure) yes Invalid Interpretation Code [facility] Work Phone: Protein mass conc Done Invalid Interpretation Code [facility] Work Phone: Protein mass conc no Invalid Interpretation Code [facility] Work Phone: Tobacco smoking status VAIS Never Invalid Interpretation Code [facility] Work Phone: Tobacco smoking status VAIS Never smoker Invalid Interpretation Code [facility] Work Phone: Tobacco use [facility] Never smoker Invalid Interpretation Code [facility] Work Phone: No Panel Informationon 04-24 TSH 2.23 {uIU/mL} Normal 0.358 - 3.74 {uIU/mL} [facility], [facility].; [employer], [employer]. Laboratory - Chemistry and C hemistry - challengeon 05-27-2016 Calcium [Mass/Vol] 8.5 mg/dL Normal 8.5 - 10. 1 mg/dL [employer] [facility], [employer].; [employer] Chloride [Moles/Vol] 107 mmol/L Normal 98 - 10 7 mmol/L [facility], [facility].; [employer], [employer]. Cholesterol [Mass/Vol] 197 mg/dL Normal [facility].; [facility], [facility]. Cholesterol in HDL [Mass/Vol] 43 mg/dL Normal [facility], [facility].; [facility], [facility]. Cholesterol in LDL [Mass/Vol] 126 mg/dL Normal 0 - 130 mg/dL [facility], [facility].; [facility], [facility]. Cholesterol in VLDL [Mass/Vol] 28 mg/dL Normal 5 - 40 mg/dL [facility], [facility].; [facility], [facility]. CO2 [Moles/Vol] 29.0 mmol/L Normal 21.0 - 32.0 mmol/L [facility].; [facility], [facility]. Creatinine [Mass/Vol] 0.81 mg/dL Normal 0.55 - 1.20 mg/dL [facility], [facility].; [facility], [facility]. GFR/1.73 sq M.predicted among non-blacks MDRD (S/P/Bld) [Vol rate/Area] 81 mL/min/{1.73_m 2} Normal [facility], [facility].; [facility], [facility]. Glucose [Mass/Vol] 100 mg/dL Normal 70 - 110 mg/dL [facility].; [facility], [facility]. Potassium [Moles/Vol] 3.9 mmol/L Normal 3.5 - 5.1 mmol/L [facility], [facility].; [facility] [employer] [facility], [facility]. Sodium [Moles/Vol] 141 mmol/L Normal 136 - 145 mmol/L [facility], [facility].; [facility], [facility]. Triglyceride [Mass/Vol] 138 mg/dL Normal [facility], [facility].; [facility] [employer] [facility], [facility]. Urea nitrogen [Mass/Vol] 14 mg/dL Normal 7 - 18 mg/dL [facility], [facility].; [facility] [employer] [facility], [facility]. Laboratory - Hematology and Cell countson 05-27-2016 Basophils/100 WBC (Bld) 0.3 % Normal 0 - 1 % [facility], [facility].; [facility] [employer] [facility], [employer] Eosinophils/100 WBC (Bld) 1.8 % Normal 0 - 5 % [facility], [facility].; [facility] [employer] [facility], [facility]. Erythrocyte distribution width (RBC) [Ratio] 13.5 % Normal 11.6 - 14.6 % [facility].; [employer], [facility]. Hematocrit (Bld) [Volume fraction] 42.7 % Normal 37 - 47 % [facility].; [employer], [facility]. Hemoglobin (Bld) [Mass/Vol] 14.0 g/dL Normal 12.0 - 15.0 g/dL [facility], [facility].; [employer], [employer]. Lymphocytes/100 WBC (Bld) 27.2 % Normal 19 - 41 % [facility].; [employer] MCH (RBC) [Entitic mass] 29.4 pg Normal 27.0 - 32.0 pg [facility] [facility].; [employer], [employer]. MCV (RBC) [Entitic vol] 89.7 fL Normal 81 - 99 fL [employer], [facility].; [employer], [employer]. Monocytes/100 WBC (Bld) 7.5 % Normal 0 - 10 % [facility].; [employer], [employer]. Neutrophils/100 WBC (Bld) 62.7 % Normal 47 - 70 % [email or web address] [facility].; [employer], [employer]. Platelet mean volume (Bld) [Entitic vol] 10.8 fL Normal 6.2 - 12.0 fL [facility].; [employer], [employer]. Platelets (Bld) [#/Vol] 312 10*3/uL Normal 150 - 450 K/mm3 [email or web address] [facility].; [employer], [employer]. RBC (Bld) [#/Vol] 4.76 10*6/uL Normal 4.2 - 5.4 {M/mm3} [email or web address] [facility].; [employer], [employer]. WBC (Bld) [#/Vol] 12.5 10*3/uL Abnormal 4.4 - 11.0 K/mm3 [employer].; [employer], [employer]. No Panel Informationon 05-27 Absolute Lymph 3.39 {X10_3/ul} Normal 0.83 - 4.51 {X10_3/ul} [employer].; [employer], [employer]. Absolute Neut 7.8 {X10_3/uL} Abnormal 2.0 - 7.7 {X10_3/uL} [facility].; [facility] BUN/CRE 17.3 {RATIO} Normal 10 - 20 {RATIO} [facility].; [facility] EST GFR - AA 98 mL/min Normal [facility], [facility]; [facility] GAP 5 Normal 5 - 15 [facility]; [facility] IM GRAN % 0.500 % Normal 0.0 - 0.9 % [facility]; [facility], [facility] MCHC 32.8 {g/gl} Normal 32 - 36 {g/gl} [facility], [facility]. RDW SD 44.5 fL Abnormal 35.1 - 43.9 fL [facility].; [facility], [facility] TSH 1.62 {uIU/mL} Normal 0.358 - 3.74 {uIU/mL} [facility], [facility].; [facility], [facility]. No Panel Informationon 01-11 TSH 3.61 {uIU/mL} Normal 0.358 - 3.74 {uIU/mL} [facility], [facility].; [facility], [facility]. Laboratory - Chemistry and C hemistry - challengeon 11-08-2015 Albumin [Mass/Vol] 3.5 g/dL Normal 3.4 - 5.0 g/dL [facility].; [facility], [facility] Albumin/Globulin [Mass ratio] 0.9 {ratio} Normal 0.9 - 2.4 {RATIO} [facility], [facility].; [facility] [employer], [facility]. ALT [Catalytic activity/Vol] 44 U/L Normal 12 - 78 U/L [facility].; [facility], [facility]. AST [Catalytic activity/Vol] 22 U/L Normal 15 - 37 U/L [facility], [facility].; [facility] [employer] [facility], [facility]. Bilirubin [Mass/Vol] 0.20 mg/dL Normal 0.20 - 1.00 mg/dL [facility], [facility].; [facility], [facility]. Calcium [Mass/Vol] 8.6 mg/dL Normal 8.5 - 10. 1 mg/dL [facility].; [facility], [facility] Chloride [Moles/Vol] 105 mmol/L Normal 98 - 10 7 mmol/L [facility].; [facility], [facility]. CO2 [Moles/Vol] 31.0 mmol/L Normal 21.0 - 32.0 mmol/L [facility].; [facility], [facility] Creatinine [Mass/Vol] 0.86 mg/dL Normal 0.55 - 1.20 mg/dL [facility].; [facility], [facility] GFR/1.73 sq M.predicted among non-blacks MDRD (S/P/Bld) [Vol rate/Area] 76 mL/min/{1.73_m 2} Normal [facility].; [facility], [facility] Globulin (S) [Mass/Vol] 3.9 g/dL Abnormal 2.3 - 3.5 g/dL [facility].; [facility], [facility]. Glucose [Mass/Vol] 107 mg/dL Normal 70 - 110 mg/dL [facility]; [facility], [facility] Potassium [Moles/Vol] 3.8 mmol/L Normal 3.5 - 5.1 mmol/L [facility].; [facility], [facility]. Sodium [Moles/Vol] 140 mmol/L Normal 136 - 145 mmol/L [facility], [facility].; [facility], [facility] Urea nitrogen [Mass/Vol] 20 mg/dL Abnormal 7 - 18 mg/dL [facility].; [facility], [facility]. Laboratory - Hematology and Cell countson 11-08-2015 Basophils/100 WBC (Bld) 0.2 % Normal 0 - 1 % [facility].; [facility], [facility]. Eosinophils/100 WBC (Bld) 1.8 % Normal 0 - 5 % [facility], [facility].; [facility] [employer] [facility], [facility]. Erythrocyte distribution width (RBC) [Ratio] 13.4 % Normal 11.6 - 14.6 % [facility], [facility].; [facility], [facility] Hematocrit (Bld) [Volume fraction] 38.6 % Normal 37 - 47 % [facility].; [facility], [facility] Hemoglobin (Bld) [Mass/Vol] 13.1 g/dL Normal 12.0 - 15.0 g/dL [facility].; [facility], [facility] Lymphocytes/100 WBC (Bld) 30.0 % Normal 19 - 41 % [facility], [facility].; [employer], [facility]. MCH (RBC) [Entitic mass] 30.0 pg Normal 27.0 - 32.[address] [facility].; [employer], [facility]. MCV (RBC) [Entitic vol] 88.3 fL Normal 81 - [address] [facility].; [facility], [facility] Monocytes/100 WBC (Bld) 9.8 % Normal 0 - 10 % [facility].; [facility], [facility]. Neutrophils/100 WBC (Bld) 57.8 % Normal 47 - 70 % [facility].; [employer], [facility] Platelet mean volume (Bld) [Entitic vol] 10.9 fL Normal 6.2 - 12.0 fL [facility].; [employer], [facility]. Platelets (Bld) [#/Vol] 285 10*3/uL Normal 150 - 450 K/mm3 [facility].; [facility], [facility]. RBC (Bld) [#/Vol] 4.37 10*6/uL Normal 4.2 - 5.4 {M/mm3} [facility].; [employer], [facility]. WBC (Bld) [#/Vol] 12.0 10*3/uL Abnormal 4.4 - 11.0 K/mm3 [facility].; [facility] [email or web address] [facility] No Panel Informationon Absolute Lymph 3.61 {X10_3/ul} Normal 0.83 - 4.51 {X10_3/ul} [facility].; [employer], [employer]. Absolute Neut 6.9 {X10_3/uL} Normal 2.0 - 7.7 {X10_3/uL} [facility].; [employer], [employer]. ALK P 80 U/L Normal 50 - 136 U/L [facility]. BUN/CRE 23.3 {RATIO} Abnormal 10 - 20 {RATIO} [facility].; [facility] EST GFR - AA 92 mL/min Normal [facility].; [employer] GAP 4 Abnormal 5 - [address] [facility].; [facility] IM GRAN % 0.400 % Normal 0.0 - 0.9 % [facility].; [facility] [facility]. MCHC 33.9 {g/gl} Normal 32 - 36 {g/gl} [facility].; [facility] [employer] [facility]. RDW SD 42.4 fL Normal 35.1 - 43.9 fL [facility].; [facility] [employer] [facility] T PROT 7.4 g/dL Normal 6.4 - 8.2 g/dL [facility].; [employer]. TSH 5.30 {uIU/mL} Abnormal 0.358 - 3.74 {uIU/mL} [facility].; [employer]. Laboratory - Chemistry and C hemistry - challengeon 08-10-2014 Bilirubin Ql (U) Negative Normal [facility] [employer]. Ketones Ql (U) Negative Normal [facility].; [employer]. pH (U) 6.5 [pH] Normal [facility].; [employer]. Specific gravity (U) [Rel density] 1.[address] [facility].; [employer] Urobilinogen Qn (U) 0.2 mg/dL Normal [facility].; [employer]. Laboratory - Hematology and Cell countson 08-10-2014 Hemoglobin Ql (U) Trace, hemolyzed Abnormal [facility].; [employer]. Laboratory - Specimen inform ationon 08-10-2014 Appearance (U) clear Normal [facility].; [employer]. Color (U) yellow Normal [facility].; [employer] [facility] Laboratory - Urinalysison Glucose Test strip (U) [Mass/Vol] Negative Normal [facility].; [facility] [employer] [facility] Leukocyte esterase Test strip Ql (U) Negative Normal [facility].; [employer]. Nitrite Ql (U) Negative Normal [facility].; [employer]. Protein Ql (U) Negative Normal [facility] [employer].; [employer]. Laboratory - Microbiology an d Antimicrobial susceptibilityon 10-20-2010 FLUAV Ag IA Ql (Throat) Negative Normal [facility]; [employer] Vital Signs Date Time Vital Sign Value Performing Clinician Facility 05-16-2024 14:34-0400 Body height 167.64 cm Nikhil Naveed [employer]SMISSION WORK[employer] [facility].; [employer]. 05-16-2024 14:34-0400 Body mass index (BMI) [Ratio] 41.16 kg/m2 Nikhil Naveed [facility].; [employer]. 05-16-2024 14:34-0400 Body surface area Derived from formula 2.22 m2 Nikhil Naveed [employer]SM[employer] [facility], [facility].; [employer]. 05-16-2024 14:34-0400 Body temperature 97.6 [degF] Nikhil Naveed [employer]SMISS[employer] WORK[employer] [facility], [facility].; [facility] [facility]. 05-16-2024 14:34-0400 Body weight 115.67 kg Nikhil Naveed [employer]SM[employer] WORK[employer] [facility].; [employer]. 05-16-2024 14:34-0400 Diastolic blood pressure 85 mm[Hg] Nikhil Naveed [facility].; [employer]. Comment on above: Patient Position: Sitting; Cuff Location : Left Arm; Cuff Size: Standard 05-16-2024 14:34-0400 Heart rate 78 /min Nikhil Lucio LPN [facility].; [employer]. Comment on above: Pattern: Regular 05-16-2024 14:34-0400 Inhaled oxygen concentration 21 % Nikhil Lucio LPN [facility], [employer]. Comment on above: Room air 05-16-2024 14:34-0400 SaO2% (BldA) [Mass fraction] 96 % Nikhil Lucio LPN [facility] [employer] [facility] 05-16-2024 14:34-0400 Systolic blood pressure 135 mm[Hg] Nikhil Lucio LPN [facility], [facility].; [employer] [facility], [employer]. Comment on above: Patient Position: Sitting; Cuff Location : Left Arm; Cuff Size: Standard 03-25-2024 09:01-0400 Body height 167.64 cm Kimberly Marti LPN [facility], [facility].; [facility], [facility]. 03-25-2024 09:01-0400 Body mass index (BMI) [Ratio] 41.8 kg/m2 Kimberly Marti LPN [facility], [facility].; [facility], [facility]. 03-25-2024 09:01-0400 Body surface area Derived from formula 2.23 m2 Kimberly Marti LPN [facility], [facility].; [facility] [employer] [facility], [facility]. 03-25-2024 09:01-0400 Body weight 117.48 kg Kimberly Marti LPN [facility], [facility].; [facility] [employer] [facility], [facility]. 03-25-2024 09:01-0400 Diastolic blood pressure 84 mm[Hg] Kimberly Marti LPN [facility], [facility].; [facility] [employer] [facility], [employer]. Comment on above: Patient Position: Sitting; Cuff Location : Left Arm; Cuff Size: Standard 03-25-2024 09:01-0400 Heart rate 71 /min Kimberly Marti LPN [facility], [facility].; [employer] [facility], [employer]. Comment on above: Pattern: Regular 03-25-2024 09:01-0400 Systolic blood pressure 132 mm[Hg] Kimberly Marti LPN [facility], [facility].; [employer], [employer]. Comment on above: Patient Position: Sitting; Cuff Location : Left Arm; Cuff Size: Standard 03-14-2024 13:32-0400 Body height 167.64 cm Nikhil Lucio LPN [facility], [facility].; [facility], [facility]. 03-14-2024 13:32-0400 Body mass index (BMI) [Ratio] 41.64 kg/m2 Nikhil Lucio LPN [facility], [facility].; [facility], [facility]. 03-14-2024 13:32-0400 Body surface area Derived from formula 2.23 m2 Nikhil Lucio [employer]SMISSION WORK[employer] [facility], [facility].; [facility], [facility]. 03-14-2024 13:32-0400 Body weight 117.03 kg Nikhil Lucio TRANSMISSION WORKER [facility], [facility].; [facility], [facility]. 03-14-2024 13:32-0400 Diastolic blood pressure 80 mm[Hg] Nikhil Naveed [employer]SM[employer] WORK[employer] [facility], [facility].; [facility], [facility]. Comment on above: Patient Position: Sitting; Cuff Location : Left Arm; Cuff Size: Standard 03-14-2024 13:32-0400 Heart rate 73 /min Nikhil Naveed [facility], [facility].; [facility], [facility]. Comment on above: Pattern: Regular 03-14-2024 13:32-0400 Systolic blood pressure 132 mm[Hg] Nikhil Naveed [facility], [facility].; [facility], [facility]. Comment on above: Patient Position: Sitting; Cuff Location : Left Arm; Cuff Size: Standard 01-10-2024 09:34-0400 Body height 167.64 cm Kimberly Marti LPN [facility], [facility].; [facility] [facility], [facility]. 01-10-2024 09:34-0400 Body mass index (BMI) [Ratio] 41.48 kg/m2 Kimberly Marti LPN [facility], [facility].; [facility], [facility]. 01-10-2024 09:34-0400 Body surface area Derived from formula 2.23 m2 Kimberly Marti LPN [facility], [facility].; [facility], [facility]. 01-10-2024 09:34-0400 Body temperature 97.4 [degF] Kimberly Marti [facility], [facility].; [facility], [facility]. Comment on above: Method: Tympanic 01-10-2024 09:34-0400 Body weight 116.58 kg Kimberly Marti LPN [facility], [facility].; [facility], [facility]. 01-10-2024 09:34-0400 Diastolic blood pressure 89 mm[Hg] Kimberly Marti LPN [facility], [facility].; [facility], [employer]. Comment on above: Patient Position: Sitting; Cuff Location : Left Arm; Cuff Size: Standard 01-10-2024 09:34-0400 Heart rate 85 /min Kimberly Marti LPN [facility], [facility].; Russell Follica [facility], [employer]. Comment on above: Pattern: Regular 01-10-2024 09:34-0400 Inhaled oxygen concentration 21 % Kimberly Marti LPN [facility], [facility].; [facility], [facility]. Comment on above: Room air 01-10-2024 09:34-0400 SaO2% (BldA) [Mass fraction] 96 % Kimberly Marti LPN [facility], [facility].; [facility], [facility]. 01-10-2024 09:34-0400 Systolic blood pressure 144 mm[Hg] Kimberly Marti LPN [facility], [facility].; Russell Follica [facility], [employer]. Comment on above: Patient Position: Sitting; Cuff Location : Left Arm; Cuff Size: Standard 11-09-2023 11:14050 Body height 167.64 cm Dottie Gramajo LPN [facility], [facility].; [facility], [facility]. 11-09-2023 11:14-0500 Body mass index (BMI) [Ratio] 41.96 kg/m2 Dottie Gramajo [facility], [facility].; Russell Follica [facility], [facility]. 11-09-2023 11:14-0500 Body surface area Derived from formula 2.24 m2 Dottie Gramajo [facility], [facility].; [facility], [facility]. 11-09-2023 11:14-050 Body temperature 97.4 [degF] Dottie Gramajo [facility], [facility].; [employer], [employer]. Comment on above: Method: Tympanic 11-09-2023 11:140500 Body weight 117.94 kg Dottie Gramajo [facility], [facility].; [facility], [facility] 11-09-2023 11:14-0500 Diastolic blood pressure 81 mm[Hg] Dottie Gramajo TRANSMISSION WORKER [facility], [facility].; [employer], [employer]. Comment on above: Patient Position: Sitting; Cuff Location : Left Arm; Cuff Size: Standard 11-09-2023 11:14-0500 Heart rate 73 /min Dottievarghese Gramajo [facility], [facility].; [employer], [employer] Comment on above: Pattern: Regular 11-09-2023 11:14-0500 Systolic blood pressure 128 mm[Hg] Dottie Gramajo TRANSMISSION WORKER [facility], [facility].; [employer], [employer] Comment on above: Patient Position: Sitting; Cuff Location : Left Arm; Cuff Size: Standard 10-23-2023 12:43-0500 Body height 167.64 cm Ana Nieves TRANSMISSION WORKER [facility], [facility].; [employer] 10-23-2023 12:43-0500 Body mass index (BMI) [Ratio] 42.29 kg/m2 Ana Nieves [facility], [facility].; [employer] [facility], Inc[facility] 10-23-2023 12:43-0500 Body surface area Derived from formula 2.24 m2 Ana Nieves [facility], [facility].; [employer], [employer] 10-23-2023 12:43-0500 Body weight 118.84 kg Ana Nieves [facility], [facility].; [employer], [employer] 10-23-2023 12:43-0500 Diastolic blood pressure 105 mm[Hg] Ana Nieves [facility], [facility].; [employer], [employer]. Comment on above: Patient Position: Sitting; Cuff Location : Left Arm; Cuff Size: Large 10-23-2023 12:43-0500 Heart rate 74 /min ShahlaLoraine Nieves TRANSMISSION WORKER [facility], [facility].; [employer], [employer] Comment on above: Pattern: Regular 10-23-2023 12:43-0500 Systolic blood pressure 169 mm[Hg] Ana Nieves [facility], [facility].; [employer], [facility]. Comment on above: Patient Position: Sitting; Cuff Location : Left Arm; Cuff Size: Large 04-12-2023 10:08-0400 Body height 167.64 cm Kimberly Marti LPN [facility], [facility].; [facility], [facility]. 04-12-2023 10:08-0400 Body mass index (BMI) [Ratio] 42.13 kg/m2 Kimberly Marti LPN [facility], [facility].; Russell Follica [facility], [facility]. 04-12-2023 10:08-0400 Body surface area Derived from formula 2.24 m2 Kimberly Marti LPN [facility], [facility].; Russell Follica [facility], [facility]. 04-12-2023 10:08040 Body weight 118.39 kg Kimberly Marti LPN [facility], [facility].; Russell [employer], [facility]. 04-12-2023 10:08-0400 Diastolic blood pressure 85 mm[Hg] Kimberly Marti LPN [facility], [facility].; [employer], [employer]. Comment on above: Patient Position: Sitting; Cuff Location : Left Arm; Cuff Size: Standard 04-12-2023 10:08-0400 Heart rate 72 /min Kimberly Marti LPN [facility], [facility].; [employer], [employer]. Comment on above: Pattern: Regular 04-12-2023 10:08-0400 Systolic blood pressure 130 mm[Hg] Kimberly Marti LPN [facility], [facility].; Russell [employer], [employer]. Comment on above: Patient Position: Sitting; Cuff Location : Left Arm; Cuff Size: Standard 01-18-2023 15:06-0400 Body height 167.64 cm Kimberly Marti LPN [facility], [facility].; Russell [employer], [facility]. 01-18-2023 15:06-0400 Body mass index (BMI) [Ratio] 41.64 kg/m2 Kimberly Marti LPN [facility], [facility].; Russell Follica [facility], [facility]. 01-18-2023 15:06-0400 Body surface area Derived from formula 2.23 m2 Kimberly Marti LPN [facility], [facility].; Russell [employer], [facility]. 01-18-2023 15:06-0400 Body weight 117.03 kg Kimberly Marti LPN [facility], [facility].; [facility], [facility]. 01-18-2023 15:06-0400 Diastolic blood pressure 88 mm[Hg] Kimberly Marti LPN [facility], [facility].; [facility], Inc[facility] Comment on above: Patient Position: Sitting; Cuff Location : Left Arm; Cuff Size: Standard 01-18-2023 15:06-0400 Heart rate 90 /min Kimberly Marti LPN [facility], [facility].; [facility], [facility] Comment on above: Pattern: Regular 01-18-2023 15:06-0400 Systolic blood pressure 142 mm[Hg] Kimberly Marti LPN [facility], [facility].; [facility], [facility] Comment on above: Patient Position: Sitting; Cuff Location : Left Arm; Cuff Size: Standard 04-04-2022 09:44-0400 Body height 167.64 cm Kimberly Marti LPN [facility], [facility].; [facility], [facility] 04-04-2022 09:44-0400 Body mass index (BMI) [Ratio] 41.16 kg/m2 Kimberly Marti LPN [facility], [facility].; [facility], [facility] 04-04-2022 09:44-0400 Body surface area Derived from formula 2.22 m2 Kimberly Marti LPN [facility], [facility].; [facility], [facility] 04-04-2022 09:44-0400 Body temperature 96.9 [degF] Kimberly Marti LPN [facility], [facility].; Russell Follica [facility], Inc. Comment on above: Method: Tympanic 04-04-2022 09:44-0400 Body weight 115.67 kg Kimberly Marti LPN [facility], [facility].; [facility], [facility] 04-04-2022 09:44-0400 Diastolic blood pressure 89 mm[Hg] Kimberly Marti LPN [facility], [facility].; [employer], [employer] Comment on above: Patient Position: Sitting; Cuff Location : Left Arm; Cuff Size: Standard 04-04-2022 09:44-0400 Heart rate 80 /min Kimberly Marti LPN [facility], [facility].; [employer]. Comment on above: Pattern: Regular 04-04-2022 09:44-0400 Systolic blood pressure 149 mm[Hg] Kimberly Marti [facility], [employer].; [employer]. Comment on above: Patient Position: Sitting; Cuff Location : Left Arm; Cuff Size: Standard 03-28-2022 09:11-0400 Body height 167.64 cm Ana Nieves [facility], [facility].; [employer]. 03-28-2022 09:11-0400 Body mass index (BMI) [Ratio] 41.16 kg/m2 Shahla Lizbeth [facility], [employer].; [employer], [employer]. 03-28-2022 09:11-0400 Body surface area Derived from formula 2.22 m2 Ana Nieves TRANSMISSION WORKER [facility], [employer].; [employer], [employer]. 03-28-2022 09:11-0400 Body weight 115.67 kg Ana Nieves [facility], [facility].; [employer]. 03-28-2022 09:11-0400 Diastolic blood pressure 67 mm[Hg] Ana Nieves [facility], [employer].; [employer]. Comment on above: Patient Position: Sitting; Cuff Location : Left Arm; Cuff Size: Large 03-28-2022 09:11-0400 Heart rate 86 /min Ana Nieves TRANSMISSION WORKER [facility], [employer].; [employer]. Comment on above: Pattern: Regular 03-28-2022 09:11-0400 Systolic blood pressure 135 mm[Hg] Ana Nieves [facility], [employer].; [employer]. Comment on above: Patient Position: Sitting; Cuff Location : Left Arm; Cuff Size: Large 06-06-2021 11:44-0400 Body height 167.64 cm Ana Nieves [facility], [facility].; [employer]. 06-06-2021 11:44-0400 Body mass index (BMI) [Ratio] 40.51 kg/m2 Ana Nieves [facility].; Russell Follica [facility], [facility]. 06-06-2021 11:44-0400 Body surface area Derived from formula 2.2 m2 Ana Nieves TRANSMISSION WORKER [facility], [facility].; Russell Follica [facility], Inc[facility] 06-06-2021 11:44-0400 Body weight 113.85 kg Ana Nieves [facility], [facility].; Russell Follica [facility], Inc[facility] 06-06-2021 11:44-0400 Diastolic blood pressure 84 mm[Hg] Ana Nieves [facility], [facility].; [employer], [employer]. Comment on above: Patient Position: Sitting; Cuff Location : Left Arm; Cuff Size: Large 06-06-2021 11:44-0400 Heart rate 83 /min Ana Nieves [facility], [facility].; [employer], [employer]. Comment on above: Pattern: Regular 06-06-2021 11:44-0400 Systolic blood pressure 129 mm[Hg] Ana Nieves [facility], [facility].; [employer], [employer]. Comment on above: Patient Position: Sitting; Cuff Location : Left Arm; Cuff Size: Large 04-27-2021 08:23-0400 Body height 167.64 cm Veronika Baldwin LPN [facility], [facility].; [employer] Fol[facility], Inc[facility] 04-27-2021 08:23-0400 Body mass index (BMI) [Ratio] 40.35 kg/m2 [facility], [facility].; Russell Follica [facility], Inc[facility] 04-27-2021 08:23-0400 Body surface area Derived from formula 2.2 m2 Veronika Baldwin LPN [facility], [facility].; [employer] [facility], [facility]. 04-27-2021 08:23-0400 Body temperature 97.3 [degF] [facility], [facility].; [employer], [employer]. Comment on above: Method: Tympanic 04-27-2021 08:23-0400 Body weight 113.4 kg [facility]ika [facility], [facility].; [employer], [employer]. 04-27-2021 08:23-0400 Diastolic blood pressure 74 mm[Hg] Veronika Baldwin LPN [facility], [facility].; [facility], [facility]. Comment on above: Patient Position: Sitting; Cuff Location : Right Arm; Cuff Size: Standard 04-27-2021 08:23-0400 Heart rate 74 /min Veronika Baldwin LPN [facility], [facility].; Russell Follica [facility], Inc[facility] Comment on above: Pattern: Regular 04-27-2021 08:23-0400 Systolic blood pressure 113 mm[Hg] [facility].; Russell Follica [facility], [facility]. Comment on above: Patient Position: Sitting; Cuff Location : Right Arm; Cuff Size: Standard 03-29-2021 15:110400 Body height 167.64 cm Kimberly Marti LPN [facility], [facility].; [facility], [facility]. 03-29-2021 15:11-0400 Body mass index (BMI) [Ratio] 40.35 kg/m2 Kimberly Marti LPN [facility], [facility].; [facility], [facility]. 03-29-2021 15:110400 Body surface area Derived from formula 2.2 m2 Kimberly Marti LPN [facility], [facility].; Russell Follica [facility], [facility]. 03-29-2021 15:11040 Body weight 113.4 kg Kimberly Marti LPN [facility], [facility].; Russell Follica [facility], [facility]. 03-29-2021 15:11-0400 Diastolic blood pressure 82 mm[Hg] Kimberly Marti LPN [facility], [facility].; Russell Follica [facility], [facility]. Comment on above: Patient Position: Sitting; Cuff Location : Left Arm; Cuff Size: Standard 03-29-2021 15:11-0400 Heart rate 96 /min Kimberly Marti LPN [facility], [facility].; [employer] [facility] [facility], [employer]. Comment on above: Pattern: Regular 03-29-2021 15:11-0400 Systolic blood pressure 133 mm[Hg] Kimberly Marti LPN [facility], [facility].; [employer], [employer]. Comment on above: Patient Position: Sitting; Cuff Location : Left Arm; Cuff Size: Standard 11-12-2020 09:01-0500 Body temperature 97.8 [degF] Cortney Coultery TRANSMISSION WORKER [facility], [facility].; [facility], [facility] 11-12-2020 09:01-0500 Body weight 118.39 kg Cortneykeith Mcdermott [facility], [facility].; [facility], [facility] 11-12-2020 09:01-0500 Diastolic blood pressure 86 mm[Hg] Cortneykieth Mcdermott [facility], [facility].; Russell Follica [facility], [facility] Comment on above: Patient Position: Sitting; Cuff Location : Left Arm; Cuff Size: Standard 11-12-2020 09:01-0500 Heart rate 70 /min [facility], [facility].; [facility], [facility] Comment on above: Pattern: Regular 11-12-2020 09:01-0500 Systolic blood pressure 135 mm[Hg] Cortneykeith Mcdermott [facility], [facility].; [facility] Comment on above: Patient Position: Sitting; Cuff Location : Left Arm; Cuff Size: Standard 04-28-2020 07:18-0400 Body height 167.64 cm Ana Nieves [facility], [facility].; [facility] 04-28-2020 07:18-0400 Body mass index (BMI) [Ratio] 38.9 kg/m2 Shahla Stuckey [facility], [facility].; Russell Follica [facility], [facility] 04-28-2020 07:18-0400 Body surface area Derived from formula 2.17 m2 Shahla Stuckey [facility], [facility].; [facility], [facility]. 04-28-2020 07:18-0400 Body weight 109.32 kg Shahla Stuckey [facility], [facility].; Russell [employer], [facility]. 04-28-2020 07:18-0400 Diastolic blood pressure 84 mm[Hg] Ana Nieves [facility], [facility].; Russell [employer], [employer] Comment on above: Patient Position: Sitting; Cuff Location : Left Arm; Cuff Size: Large 04-28-2020 07:18-0400 Heart rate 99 /min Ana Nieves [facility], [facility].; Russell [employer]. Comment on above: Pattern: Regular 04-28-2020 07:18-0400 Systolic blood pressure 123 mm[Hg] Ana Nieves LPN [facility], [facility].; Russell Follica [facility], [employer]. Comment on above: Patient Position: Sitting; Cuff Location : Left Arm; Cuff Size: Large 11-17-2019 13:44-0400 Body height 167.64 cm Ana Nieves LPN [facility], [facility].; Russell Follica [facility], [facility] 11-17-2019 13:44-0400 Body mass index (BMI) [Ratio] 39.87 kg/m2 Ana Nieves [facility], [facility].; Russell Follica [facility], [employer]. 11-17-2019 13:44-0400 Body surface area Derived from formula 2.19 m2 Ana Nieves TRANSMISSION WORKER [facility], [facility].; [employer] [facility] [facility], [employer]. 11-17-2019 13:44-0400 Body temperature 98 [degF] Ana Nieves [facility], [facility].; [employer], [employer]. Comment on above: Method: Tympanic 11-17-2019 13:44-0400 Body weight 112.04 kg Ana Nieves TRANSMISSION WORKER [facility], [facility].; [employer] [facility] [facility], [facility] 11-17-2019 13:44-0400 Diastolic blood pressure 85 mm[Hg] Ana Nieves LPN [facility], [facility].; [employer] [facility], [employer]. Comment on above: Patient Position: Sitting; Cuff Location : Left Arm; Cuff Size: Large 11-17-2019 13:44-0400 Heart rate 91 /min Ana Nieves TRANSMISSION WORKER [facility], [facility].; [employer]. Comment on above: Pattern: Regular 11-17-2019 13:44-0400 Inhaled oxygen concentration 20 % Ana Nieves TRANSMISSION WORKER [facility], [facility].; [employer] Comment on above: Room air 11-17-2019 13:44-0400 Inhaled oxygen concentration 21 % Ana Nieves [facility], [facility].; [employer]. Comment on above: Room air 11-17-2019 13:44-0400 SaO2% (BldA) [Mass fraction] 99 % Ana Nieves [facility], [facility].; Russell Follica [facility], [employer]. 11-17-2019 13:44-0400 Systolic blood pressure 124 mm[Hg] Ana Nieves LPN [facility], [facility].; [employer] [facility], [employer]. Comment on above: Patient Position: Sitting; Cuff Location : Left Arm; Cuff Size: Large 11-10-2019 15:03-0500 Body height 167.64 cm Ana Nieves [facility], [facility].; Russell Follica [facility], [employer]. 11-10-2019 15:03-0500 Body mass index (BMI) [Ratio] 39.87 kg/m2 Shahla Lizbeth [facility], [facility].; Russell Follic[employer] [facility], [employer]. 11-10-2019 15:03-0500 Body surface area Derived from formula 2.19 m2 [facility] Lizbeth [facility], [facility].; Russell Follica [facility], [employer]. 11-10-2019 15:03-0500 Body temperature 98.5 [degF] Ana Nieves [facility], [facility].; [employer] [facility], [employer]. Comment on above: Method: Tympanic 11-10-2019 15:03-0500 Body weight 112.04 kg Ana Nieves [facility], [facility].; [employer] [facility] [facility], [employer]. 11-10-2019 15:03-0500 Diastolic blood pressure 85 mm[Hg] Ana Nieves [facility], [facility].; [employer] [facility] [facility], [employer]. Comment on above: Patient Position: Sitting; Cuff Location : Left Arm; Cuff Size: Large 11-10-2019 15:03-0500 Heart rate 97 /min Shahla Lizbeth [facility], [facility].; [employer] [facility], [employer]. Comment on above: Pattern: Regular 11-10-2019 15:03-0500 Inhaled oxygen concentration 20 % Ana Nieves [facility], [facility].; [employer]. Comment on above: Room air 11-10-2019 15:03-0500 Inhaled oxygen concentration 21 % Shahla Stuckey [facility].; [employer]. Comment on above: Room air 11-10-2019 15:03-0500 SaO2% (BldA) [Mass fraction] 97 % Ana Nieves [facility] Follica [facility], Inc.; [employer]. 11-10-2019 15:03-0500 Systolic blood pressure 125 mm[Hg] Ana Nieves [facility] Follica [facility], [facility].; [employer]. Comment on above: Patient Position: Sitting; Cuff Location : Left Arm; Cuff Size: Large 04-28-2019 15:01-0400 Body height 167.64 cm Odette Hernández [facility] Follic[facility], [facility].; [employer]. 04-28-2019 15:01-0400 Body mass index (BMI) [Ratio] 40.19 kg/m2 Odette Hernández [facility] [employer]. 04-28-2019 15:01-0400 Body surface area Derived from formula 2.2 m2 Odette Hernández [facility] [employer], [employer].; [employer], [employer]. 04-28-2019 15:01-0400 Body weight 112.95 kg [facility]ette [facility]dez [facility] [employer]. 04-28-2019 15:01-0400 Diastolic blood pressure 72 mm[Hg] Odette [facility]dez [facility] [employer]. Comment on above: Patient Position: Sitting; Cuff Location : Right Arm; Cuff Size: Standard 04-28-2019 15:01-0400 Heart rate 76 /min Odette Hernández [employer]SMISSION WORKER [employer]. Comment on above: Pattern: Regular 04-28-2019 15:01-0400 Systolic blood pressure 109 mm[Hg] Odette [facility]dez [facility] [employer]. Comment on above: Patient Position: Sitting; Cuff Location : Right Arm; Cuff Size: Standard 10-28-2018 11:03-0500 Body height 167.64 cm Chanel Lizarraga TRANSMISSION WORKER [employer], [employer]. 10-28-2018 11:03-0500 Body mass index (BMI) [Ratio] 40.19 kg/m2 Newaynee Ольга Lizarraga TRANSMISSION WORKER [employer], [employer] 10-28-2018 11:03-0500 Body surface area Derived from formula 2.2 m2 Newaynee L Vess TRANSMISSION WORKER [employer]. 10-28-2018 11:03-0500 Body temperature 97.6 [degF] Neilee L Vess TRANSMISSION WORKER [employer]. Comment on above: Method: Tympanic 10-28-2018 11:03-0500 Body weight 112.95 kg [employer] Ольга Lizarraga TRANSMISSION WORKER [employer], [employer]. 10-28-2018 11:03-0500 Diastolic blood pressure 97 mm[Hg] Dilmailee L Elham TRANSMISSION WORKER [employer]. Comment on above: Patient Position: Sitting; Cuff Location : Left Arm; Cuff Size: Standard 10-28-2018 11:03-0500 Heart rate 84 /min [employer] Ольга Lizarraga TRANSMISSION WORKER [employer]. Comment on above: Pattern: Regular 10-28-2018 11:03-0500 Systolic blood pressure 151 mm[Hg] Neilee L Elham TRANSMISSION WORKER [employer]. Comment on above: Patient Position: Sitting; Cuff Location : Left Arm; Cuff Size: Standard 08-16-2018 14:03-0500 Body height 167.64 cm Danielle Walters RN [employer]. 08-16-2018 14:03-0500 Body mass index (BMI) [Ratio] 40.19 kg/m2 Danielle Walters RN [employer].; [employer] 08-16-2018 14:03-0500 Body surface area Derived from formula 2.2 m2 Danielle Walters RN [employer].; [employer]. 08-16-2018 14:03-0500 Body temperature 99.1 [degF] [facility] [employer] Comment on above: Method: Tympanic 08-16-2018 14:03-0500 Body weight 112.95 kg Danielle Walters RN [facility], Inc.; [employer] 08-16-2018 14:03-0500 Diastolic blood pressure 84 mm[Hg] Danielle Walters RN [facility] [employer] Comment on above: Patient Position: Sitting; Cuff Location : Left Arm; Cuff Size: Standard 08-16-2018 14:03-0500 Heart rate 92 /min Danielle Walters RN [facility] [employer] Comment on above: Pattern: Regular 08-16-2018 14:03-0500 Inhaled oxygen concentration 20 % Danielle Walters RN [facility], Inc.; [employer] Comment on above: Room air 08-16-2018 14:03-0500 Inhaled oxygen concentration 21 % Danielle Walters RN [facility], [employer]. Comment on above: Room air 08-16-2018 14:03-0500 SaO2% (BldA) [Mass fraction] 97 % Danielle Walters RN [facility], [employer].; [employer] 08-16-2018 14:03-0500 Systolic blood pressure 137 mm[Hg] Danielle Walters RN [facility] [employer] Comment on above: Patient Position: Sitting; Cuff Location : Left Arm; Cuff Size: Standard 05-15-2018 07:49-0400 Body height 167.64 cm Ana Nieves LPN [facility], Inc.; [employer]. 05-15-2018 07:49-0400 Body mass index (BMI) [Ratio] 39.22 kg/m2 Ana Nieves LPN [facility], Inc.; [employer] 05-15-2018 07:49-0400 Body surface area Derived from formula 2.17 m2 Shahla Stuckey [facility], Inc.; [employer] 05-15-2018 07:49-0400 Body weight 110.22 kg Ana Nieves TRANSMISSION WORKER [employer] [facility], Inc.; [employer] 05-15-2018 07:49-0400 Diastolic blood pressure 74 mm[Hg] Ana Nieves TRANSMISSION WORKER [employer] Comment on above: Patient Position: Sitting; Cuff Location : Left Arm; Cuff Size: Large 05-15-2018 07:49-0400 Heart rate 87 /min [facility]ieves [facility], Inc.; [employer] Comment on above: Pattern: Regular 05-15-2018 07:49-0400 Systolic blood pressure 111 mm[Hg] Ana [facility]ieves [facility], Inc.; [employer] Comment on above: Patient Position: Sitting; Cuff Location : Left Arm; Cuff Size: Large 09-29-2017 18:03-0500 Body temperature 99.1 [degF] Rock Arita MD Work Phone: [employer]. Comment on above: Method: Tympanic 09-29-2017 18:03-0500 Body weight 110.09 kg Rock Arita MD Work Phone: [employer], [employer] 09-29-2017 18:03-0500 Diastolic blood pressure 82 mm[Hg] Rock Arita MD Work Phone: [employer].; [employer]. Comment on above: Patient Position: Sitting; Cuff Location : Left Arm; Cuff Size: Standard 09-29-2017 18:03-0500 Heart rate 78 /min Rock Arita MD Work Phone: [employer]. Comment on above: Pattern: Regular 09-29-2017 18:03-0500 Systolic blood pressure 143 mm[Hg] Rock Arita MD Work Phone: [employer].; [employer]. Comment on above: Patient Position: Sitting; Cuff Location : Left Arm; Cuff Size: Standard 08-01-2017 09:38-0500 BMI (Body Mass Index) 37.93 kg/m2 Carlos Nancy [facility] Work Phone: 08-01-2017 09:38-0500 Body Temperature 98.9 [degF] Carlos Nancy [facility] Work Phone: 08-01-2017 09:38-0500 BP Diastolic 78 mm[Hg] Carlos Nancy [facility] Work Phone: 08-01-2017 09:38-0500 BP Systolic 122 mm[Hg] Carlos Nancy [facility] Work Phone: 08-01-2017 09:38-0500 Height 167.64 cm Carlos Stellaburke ILIA [facility] Work Phone: 08-01-2017 09:38-0500 Pulse (Heart Rate) 88 /min Carlos Nancy M[facility]ILLO [facility] Work Phone: 08-01-2017 09:38-0500 Respiratory Rate 16 /min Carlos Cruz [facility] Work Phone: 08-01-2017 09:38-0500 Weight 106.6 kg Carlos Cruz [facility] Work Phone: 07-13-2017 09:01-0400 Body height 167.64 cm Patricia Nunes LPN [facility], Inc.; [facility], Inc[facility] 07-13-2017 09:01-0400 Body mass index (BMI) [Ratio] 39.22 kg/m2 Patricia Nunes LPN [facility], Inc.; [facility], Inc[facility] 07-13-2017 09:01-0400 Body surface area Derived from formula 2.17 m2 Patricia Nunes LPN [facility], Inc.; [facility], Inc. 07-13-2017 09:01-0400 Body temperature 97.9 [degF] Patricia Nunes LPN [facility], Inc.; [facility], Inc[facility] Comment on above: Method: Tympanic 07-13-2017 09:01-0400 Body weight 110.22 kg Patricia Wemark SALGUERO [facility], Inc.; [employer] [facility], Inc. 07-13-2017 09:01-0400 Diastolic blood pressure 87 mm[Hg] Patricia Nunes LPN [facility], Inc.; Russell Follica [facility], Inc. Comment on above: Patient Position: Sitting; Cuff Location : Left Arm; Cuff Size: Standard 07-13-2017 09:01-0400 Heart rate 84 /min Patricia Nunes LPN [facility], Inc.; Russell [employer] Comment on above: Pattern: Regular 07-13-2017 09:01-0400 Inhaled oxygen concentration 20 % Patricia Nunes LPN [facility], Inc.; Russell [employer] Comment on above: Room air 07-13-2017 09:01-0400 Inhaled oxygen concentration 21 % [facility] Russell [employer], [employer]. Comment on above: Room air 07-13-2017 09:01-0400 SaO2% (BldA) [Mass fraction] 97 % Patricia Nunes [facility], Inc.; [employer] 07-13-2017 09:01-0400 Systolic blood pressure 130 mm[Hg] Patricia Nunes LPN [facility], Inc.; Russell [employer] Comment on above: Patient Position: Sitting; Cuff Location : Left Arm; Cuff Size: Standard 06-26-2017 10:39-0400 BMI (Body Mass Index) 39.54 kg/m2 Lenka Mar DC [facility] Work Phone: 06-26-2017 10:39-0400 Height 167.64 cm Lenka Mar DC [facility] Work Phone: 06-26-2017 10:39-0400 Pulse (Heart Rate) 84 /min Lenka Mar DC [facility] Work Phone: 06-26-2017 10:39-0400 Respiratory Rate 20 /min Lenka Mar DC [facility] Work Phone: 06-26-2017 10:39-0400 Weight 111.13 kg Lenka Mar DC [facility] Work Phone: 05-11-2017 09:34-0400 Body height 167.64 cm Quin Joseph [facility], Inc.; [employer]. 05-11-2017 09:34-0400 Body mass index (BMI) [Ratio] 39.22 kg/m2 Quin Joseph [facility], Inc.; [employer], [employer]. 05-11-2017 09:34-0400 Body surface area Derived from formula 2.17 m2 Quin Joseph TRANSMISSION WORKER [facility], Inc.; [employer], [employer]. 05-11-2017 09:34-0400 Body weight 110.22 kg Quin Joseph [facility], Inc.; [employer]. 05-11-2017 09:34-0400 Diastolic blood pressure 86 mm[Hg] Quin Joseph [facility], Inc.; [employer]. Comment on above: Patient Position: Sitting; Cuff Location : Left Arm; Cuff Size: Standard 05-11-2017 09:34-0400 Systolic blood pressure 124 mm[Hg] Quin Joseph TRANSMISSION WORKER Russell [facility], Inc.; [employer]. Comment on above: Patient Position: Sitting; Cuff Location : Left Arm; Cuff Size: Standard 04-27-2017 09:47-0400 Body weight 109.32 kg Rajwinder Marvin LPN Russell [facility], Inc.; [employer] 04-27-2017 09:47-0400 Diastolic blood pressure 90 mm[Hg] Rajwinder Marvin LPN Russell [employer], [employer].; [employer]. Comment on above: Patient Position: Sitting; Cuff Location : Left Arm; Cuff Size: Standard 04-27-2017 09:47-0400 Heart rate 80 /min Rajwinder Marvin LPN Russell [employer], Inc.; [employer]. Comment on above: Pattern: Regular 04-27-2017 09:47-0400 Systolic blood pressure 135 mm[Hg] Rajwinder Marvin LPN [employer] [facility], Inc.; [employer], [employer]. Comment on above: Patient Position: Sitting; Cuff Location : Left Arm; Cuff Size: Standard 09-01-2016 13:46-0500 Body height 167.64 cm Maria Teresa Corrie Rene TRANSMISSION WORKER [facility], Inc.; [employer] 09-01-2016 13:46-0500 Body mass index (BMI) [Ratio] 37.77 kg/m2 Maria Teresanicolás Rene TRANSMISSION WORKER [employer] [facility], Inc.; [employer], [employer]. 09-01-2016 13:46-0500 Body surface area Derived from formula 2.14 m2 Maria Teresa Corrie Rene [facility], Inc.; [employer], [employer]. 09-01-2016 13:46-0500 Body temperature 96.5 [degF] Maria Teresa Rene [facility], Inc.; [employer], [employer]. Comment on above: Method: Tympanic 09-01-2016 13:46-0500 Body weight 106.14 kg Maria Teresa Corrie Rene [facility], Inc.; [employer], [employer]. 09-01-2016 13:46-0500 Diastolic blood pressure 89 mm[Hg] Maria Teresaolga Rene TRANSMISSION WORKER [employer] [facility], Inc.; [employer], [employer]. Comment on above: Patient Position: Sitting; Cuff Location : Left Arm; Cuff Size: Large 09-01-2016 13:46-0500 Heart rate 100 /min Maria Teresa Rene TRANSMISSION WORKER [employer] [facility], Inc.; [employer], [employer]. Comment on above: Pattern: Regular 09-01-2016 13:46-0500 Systolic blood pressure 122 mm[Hg] Maria Teresa Corrie Rene [facility], Inc.; [employer], [employer]. Comment on above: Patient Position: Sitting; Cuff Location : Left Arm; Cuff Size: Large 06-09-2016 11:18-0400 Body weight 107.05 kg Rajwinder Marvin LPN [employer] [facility], Inc.; [employer], [employer]. 06-09-2016 11:18-0400 Diastolic blood pressure 89 mm[Hg] Rajwinder E Yon [facility], Inc.; [employer] [facility], [employer]. Comment on above: Patient Position: Sitting; Cuff Location : Left Arm; Cuff Size: Standard 06-09-2016 11:18-0400 Heart rate 87 /min Rajwinder Marvin [facility], Inc.; [employer], [employer]. Comment on above: Pattern: Regular 06-09-2016 11:18-0400 Systolic blood pressure 134 mm[Hg] Rajwinder E Yon [facility], Inc.; [employer], [employer]. Comment on above: Patient Position: Sitting; Cuff Location : Left Arm; Cuff Size: Standard 05-31-2016 10:59-0400 Body height 167.64 cm Ana Nieves [facility], Inc.; [employer] [facility], [employer]. 05-31-2016 10:59-0400 Body mass index (BMI) [Ratio] 37.45 kg/m2 [facility] Lizbeth [facility], Inc.; Russell [facility], Inc. 05-31-2016 10:59-0400 Body surface area Derived from formula 2.13 m2 Ana Nieves [facility], Inc.; [employer] [facility], Inc. 05-31-2016 10:59-0400 Body weight 105.24 kg Ana Nieves [facility], Inc.; [employer] [facility], Inc. 05-31-2016 10:59-0400 Diastolic blood pressure 82 mm[Hg] ShahlaLoraine Nieves [facility], Inc.; [employer], [employer]. Comment on above: Patient Position: Sitting; Cuff Location : Left Arm; Cuff Size: Large 05-31-2016 10:59-0400 Heart rate 57 /min Ana Nieves [facility], Inc.; [employer], [employer]. Comment on above: Pattern: Regular 05-31-2016 10:59-0400 Systolic blood pressure 121 mm[Hg] Ana Nieves [facility], Inc.; [employer], [employer]. Comment on above: Patient Position: Sitting; Cuff Location : Left Arm; Cuff Size: Large 11-08-2015 13:43-0500 Body height 167.64 cm Ana Nieves [facility] Inc.; [employer], [employer]. 11-08-2015 13:43-0500 Body mass index (BMI) [Ratio] 37.77 kg/m2 Ana Nieves [facility], Inc.; [employer] [facility], Inc. 11-08-2015 13:43-0500 Body surface area Derived from formula 2.14 m2 Ana Nieves [facility], Inc.; [employer] 11-08-2015 13:43-0500 Body weight 106.14 kg Ana Nieves TRANSMISSION WORKER [employer] [facility], Inc.; [employer], [employer]. 11-08-2015 13:43-0500 Diastolic blood pressure 72 mm[Hg] Ana Nieves [facility], Inc.; [employer], [employer]. Comment on above: Patient Position: Sitting; Cuff Location : Left Arm; Cuff Size: Large 11-08-2015 13:43-0500 Heart rate 79 /min Ana Nieves [facility], Inc.; [employer], [employer]. Comment on above: Pattern: Regular 11-08-2015 13:43-0500 Systolic blood pressure 117 mm[Hg] Ana Nieves [facility], Inc.; [employer], [employer]. Comment on above: Patient Position: Sitting; Cuff Location : Left Arm; Cuff Size: Large 05-28-2015 10:270400 Body height 167.64 cm Rock Arita MD Work Phone: [employer] [facility].; [employer]. 05-28-2015 10:27-0400 Body mass index (BMI) [Ratio] 35.35 kg/m2 Rock Arita MD Work Phone: [employer], [employer], [employer]. 05-28-2015 10:270400 Body surface area Derived from formula 2.08 m2 Rock Arita MD Work Phone: [employer].; [employer]. 05-28-2015 10:27-0400 Body weight 99.34 kg Rock Arita MD Work Phone: [employer].; [employer]. 05-28-2015 10:27-0400 Diastolic blood pressure 68 mm[Hg] Rock Arita MD Work Phone: [employer].; [employer]. Comment on above: Patient Position: Sitting; Cuff Location : Left Arm; Cuff Size: Standard 05-28-2015 10:27-0400 Heart rate 63 /min Rock Arita MD Work Phone: [employer].; [employer]. Comment on above: Pattern: Regular 05-28-2015 10:27-0400 Systolic blood pressure 107 mm[Hg] Rock Arita MD Work Phone: [employer].; [employer]. Comment on above: Patient Position: Sitting; Cuff Location : Left Arm; Cuff Size: Standard 12-25-2014 16:13-0400 Body height 167.64 cm Milena Andreas TRANSMISSION WORKER Work Phone: [employer].; [employer]. 12-25-2014 16:13-0400 Body mass index (BMI) [Ratio] 37.12 kg/m2 Milena Andreas TRANSMISSION WORKER Work Phone: [employer].; [employer] 12-25-2014 16:13-0400 Body surface area Derived from formula 2.12 m2 MilenaSellaround TRANSMISSION WORKER Work Phone: [employer].; [employer]. 12-25-2014 16:13-0400 Body temperature 99 [degF] Milena Andreas TRANSMISSION WORKER Work Phone: [employer].; [employer]. Comment on above: Method: Tympanic 12-25-2014 16:13-0400 Body weight 104.33 kg Milena Andreas TRANSMISSION WORKER Work Phone: [employer].; [employer]. 12-25-2014 16:13-0400 Diastolic blood pressure 86 mm[Hg] Milena Andreas TRANSMISSION WORKER Work Phone: [employer].; [employer]. Comment on above: Patient Position: Sitting; Cuff Location : Left Arm; Cuff Size: Large 12-25-2014 16:13-0400 Heart rate 90 /min Milena Zunigay TRANSMISSION WORKER Work Phone: [employer].; [employer]. Comment on above: Pattern: Regular 12-25-2014 16:13-0400 Inhaled oxygen concentration 20 % Milena Zunigay TRANSMISSION WORKER Work Phone: [employer].; [employer]. Comment on above: Room air 12-25-2014 16:13-0400 Inhaled oxygen concentration 21 % Milena Andreas TRANSMISSION WORKER Work Phone: [employer].; [employer]. Comment on above: Room air 12-25-2014 16:13-0400 SaO2% (BldA) [Mass fraction] 98 % Milena Zunigay TRANSMISSION WORKER Work Phone: [facility]; [employer]. 12-25-2014 16:13-0400 Systolic blood pressure 142 mm[Hg] Milena Zunigay TRANSMISSION WORKER Work Phone: [facility]; [employer]. Comment on above: Patient Position: Sitting; Cuff Location : Left Arm; Cuff Size: Large 08-10-2014 10:31-0500 Body height 167.64 cm Rock Arita MD Work Phone: [employer]; [employer]. 08-10-2014 10:31-0500 Body mass index (BMI) [Ratio] 35.35 kg/m2 Rock Arita MD Work Phone: [employer].; [employer]. 08-10-2014 10:31-0500 Body surface area Derived from formula 2.08 m2 Rock Arita MD Work Phone: [employer].; [employer]. 08-10-2014 10:31-0500 Body temperature 98.3 [degF] Rock [facility]rita MD [facility] [employer]. Comment on above: Method: Tympanic 08-10-2014 10:31-0500 Body weight 99.34 kg Rock Arita MD Work Phone[facility] [employer]. 08-10-2014 10:31-0500 Diastolic blood pressure 85 mm[Hg] Rock Arita MD Work Phone: [facility].; [employer]. Comment on above: Patient Position: Sitting; Cuff Location : Left Arm; Cuff Size: Standard 08-10-2014 10:31-0500 Heart rate 73 /min Rock Arita MD Work Phone: [facility].; [employer]. Comment on above: Pattern: Regular 08-10-2014 10:31-0500 Systolic blood pressure 135 mm[Hg] Rock Arita MD Work Phone: [facility].; [employer]. Comment on above: Patient Position: Sitting; Cuff Location : Left Arm; Cuff Size: Standard 06-03-2014 10:39-0400 Body height 167.64 cm Ana Herrerauckey [facility], [facility].; [employer] 06-03-2014 10:39-0400 Body mass index (BMI) [Ratio] 33.57 kg/m2 [facility] [place] TRANSMISSION WORKER [facility], [facility].; [employer] [facility], [employer]. 06-03-2014 10:39-0400 Body surface area Derived from formula 2.03 m2 Shahla Lizbeth TRANSMISSION WORKER [facility], [facility].; [employer], [employer]. 06-03-2014 10:39-0400 Body weight 94.35 kg Shahla Lizbeth [facility], [facility].; [employer]. 06-03-2014 10:39-0400 Diastolic blood pressure 80 mm[Hg] ShahlaLoraine Pintoey TRANSMISSION WORKER [facility], [facility].; [employer]. Comment on above: Patient Position: Sitting; Cuff Location : Left Arm; Cuff Size: Large 06-03-2014 10:39-0400 Heart rate 64 /min Ana Nieves LPN [facility], Inc.; [employer]. Comment on above: Pattern: Regular 06-03-2014 10:39-0400 Systolic blood pressure 122 mm[Hg] Ana Nieves LPN [facility], Inc.; [employer], [employer]. Comment on above: Patient Position: Sitting; Cuff Location : Left Arm; Cuff Size: Large 04-14-2014 10:52-0400 Body height 167.64 cm Ana Nieves LPN [facility], Inc.; [employer], [employer]. 04-14-2014 10:52-0400 Body mass index (BMI) [Ratio] 32.28 kg/m2 Ana Nieves [facility], Inc.; [employer] 04-14-2014 10:52-0400 Body surface area Derived from formula 2 m2 Shahla Lizbeth TRANSMISSION WORKER [facility], Inc.; [employer], [employer]. 04-14-2014 10:52-0400 Body temperature 98.5 [degF] Ana Nieves [facility], Inc.; [employer], [employer]. Comment on above: Method: Tympanic 04-14-2014 10:52-0400 Body weight 90.72 kg Ana Nieves LPN [facility], Inc.; [employer] 04-14-2014 10:52-0400 Diastolic blood pressure 82 mm[Hg] Ana Nieves LPN [facility], Inc.; [employer], [employer]. Comment on above: Patient Position: Sitting; Cuff Location : Left Arm; Cuff Size: Large 04-14-2014 10:52-0400 Heart rate 86 /min Ana Nieves LPN [facility], [employer].; [employer]. Comment on above: Pattern: Regular 04-14-2014 10:52-0400 Systolic blood pressure 123 mm[Hg] Ana Nieves LPN [employer] [facility], Inc.; [employer]. Comment on above: Patient Position: Sitting; Cuff Location : Left Arm; Cuff Size: Large 04-01-2014 09:31-0400 Body height 167.64 cm Patricia Wemark SALGUERO [facility], Inc.; [employer] [facility], Inc. 04-01-2014 09:31-0400 Body mass index (BMI) [Ratio] 32.28 kg/m2 Patricia Des SALGUERO [facility], Inc.; [employer], [employer] 04-01-2014 09:31-0400 Body surface area Derived from formula 2 m2 Patricia Nunes LPN [facility], Inc.; [employer], [employer] 04-01-2014 09:31-0400 Body weight 90.72 kg Patricia [facility], Inc.; [employer], [employer]. 04-01-2014 09:31-0400 Diastolic blood pressure 86 mm[Hg] Patriciawenceslao Nunes LPN [facility], Inc.; [employer], [employer] Comment on above: Patient Position: Sitting; Cuff Location : Left Arm; Cuff Size: Standard 04-01-2014 09:31-0400 Heart rate 85 /min Patriciawenceslao Nunes LPN Russell [facility], Inc.; [employer], [employer]. Comment on above: Pattern: Regular 04-01-2014 09:31-0400 Systolic blood pressure 138 mm[Hg] Patricia Des SALGUERO Russell Fol[facility]a [facility], [facility].; [employer], [employer]. Comment on above: Patient Position: Sitting; Cuff Location : Left Arm; Cuff Size: Standard 03-28-2014 08:58-0400 Body temperature 98.3 [degF] Rajwinder Marvin LPN Russell [facility], Inc.; [employer], [employer] 03-28-2014 08:58-0400 Body weight 87.09 kg Rajwinder Marvin TRANSMISSION WORKER [facility], Inc.; [employer], [employer]. 03-28-2014 08:58-0400 Diastolic blood pressure 81 mm[Hg] Rajwinder Marvin TRANSMISSION WORKER [facility], Inc.; [employer], [employer]. Comment on above: Patient Position: Sitting; Cuff Location : Left Arm; Cuff Size: Standard 03-28-2014 08:58-0400 Heart rate 71 /min Rajwinder Marvin [facility].; [employer]. Comment on above: Pattern: Regular 03-28-2014 08:58-0400 Systolic blood pressure 125 mm[Hg] Rajwinder Marvin [facility].; [employer]. Comment on above: Patient Position: Sitting; Cuff Location : Left Arm; Cuff Size: Standard 10-30-2013 16:42-0500 Body height 167.64 cm Milena Johns LPN Work Phone: [employer].; [employer]. 10-30-2013 16:42-0500 Body mass index (BMI) [Ratio] 27.92 kg/m2 Milena Johns TRANSMISSION WORKER Work Phone: [employer].; [employer] 10-30-2013 16:42-0500 Body surface area Derived from formula 1.88 m2 Milena Johns LPN Work Phone: [employer].; [employer] 10-30-2013 16:42-0500 Body temperature 99.2 [degF] Milena Johns LPN Work Phone: [employer].; [employer]. Comment on above: Method: Tympanic 10-30-2013 16:42-0500 Body weight 78.47 kg Milena Johns LPN Work Phone: [employer] [facility].; [employer]. 10-30-2013 16:42-0500 Diastolic blood pressure 77 mm[Hg] Milena Johns TRANSMISSION WORKER Work Phone: [employer].; [employer]. Comment on above: Patient Position: Sitting; Cuff Location : Left Arm; Cuff Size: Standard 10-30-2013 16:42-0500 Heart rate 81 /min Milena Zunigay TRANSMISSION WORKER Work Phone: [employer]. Comment on above: Pattern: Regular 10-30-2013 16:42-0500 Systolic blood pressure 129 mm[Hg] Milena Andreas TRANSMISSION WORKER Work Phone: [employer]; [employer]. Comment on above: Patient Position: Sitting; Cuff Location : Left Arm; Cuff Size: Standard 08-11-2013 09:01-0500 Body height 166.37 cm Rock Arita MD Work Phone: [facility]; [employer]. 08-11-2013 09:01-0500 Body mass index (BMI) [Ratio] 27.07 kg/m2 Rock Arita MD Work Phone: [facility]; [employer]. 08-11-2013 09:01-0500 Body surface area Derived from formula 1.83 m2 Rock Arita MD Work Phone: [facility]; [employer]. 08-11-2013 09:01-0500 Body temperature 98.9 [degF] Rock Arita MD Work Phone: [facility]; [employer]. Comment on above: Method: Tympanic 08-11-2013 09:01-0500 Body weight 74.93 kg Rock Arita MD Work Phone: [facility]; [employer]. 08-11-2013 09:01-0500 Diastolic blood pressure 86 mm[Hg] Rock Arita MD Work Phone: [facility]; [employer]. Comment on above: Patient Position: Sitting; Cuff Location : Left Arm; Cuff Size: Standard 08-11-2013 09:01-0500 Heart rate 83 /min Rock Arita MD Work Phone: [facility]; [employer]. Comment on above: Pattern: Regular 08-11-2013 09:01-0500 Inhaled oxygen concentration 20 % Rock Arita MD Work Phone: [facility]; [employer]. Comment on above: Room air 08-11-2013 09:01-0500 Inhaled oxygen concentration 21 % [facility] [employer] [facility] Comment on above: Room air 08-11-2013 09:01-0500 SaO2% (BldA) [Mass fraction] 98 % Rock Arita [facility] [employer]. 08-11-2013 09:01-0500 Systolic blood pressure 139 mm[Hg] Rock Arita MD [facility] [employer]. Comment on above: Patient Position: Sitting; Cuff Location : Left Arm; Cuff Size: Standard 07-15-2013 10:26-0500 Body temperature 98.8 [degF] Ana Nieves LPN [facility], [employer]. Comment on above: Method: Tympanic 07-15-2013 10:26-0500 Body weight 71.22 kg Ana Nieves [facility], [employer]. 07-15-2013 10:26-0500 Diastolic blood pressure 85 mm[Hg] Ana [facility] [employer]. Comment on above: Patient Position: Sitting; Cuff Location : Left Arm; Cuff Size: Large 07-15-2013 10:26-0500 Heart rate 81 /min Ana Nieves TRANSMISSION WORKER [facility], [employer]. Comment on above: Pattern: Regular 07-15-2013 10:26-0500 Inhaled oxygen concentration 20 % Ana Nieves LPN [facility], [facility] [employer]. Comment on above: Room air 07-15-2013 10:26-0500 Inhaled oxygen concentration 21 % Ana Nieves TRANSMISSION WORKER [facility], [employer]. Comment on above: Room air 07-15-2013 10:26-0500 SaO2% (BldA) [Mass fraction] 99 % Ana Nieves TRANSMISSION WORKER [facility], [employer]. 07-15-2013 10:26-0500 Systolic blood pressure 130 mm[Hg] Ana Nieves LPN [facility], [facility] [employer], [employer]. Comment on above: Patient Position: Sitting; Cuff Location : Left Arm; Cuff Size: Large 06-02-2013 09:10-0400 Body height 166.37 cm Rajwinder Marvin JOSE M [facility], [facility] [employer], [employer] 06-02-2013 09:10-0400 Body mass index (BMI) [Ratio] 27.2 kg/m2 Rajwinderlandon Marvin [facility] [employer] 06-02-2013 09:10-0400 Body surface area Derived from formula 1.84 m2 Rajwinder Marvin [facility], [facility] [employer], [employer] 06-02-2013 09:10-0400 Body weight 75.3 kg Rajwinder Marvin TRANSMISSION WORKER [facility], [facility] [employer], [employer]. 06-02-2013 09:10-0400 Diastolic blood pressure 71 mm[Hg] Rajwinderlandon Marvin [facility], [facility] [employer], [employer]. Comment on above: Patient Position: Sitting; Cuff Location : Left Arm; Cuff Size: Standard 06-02-2013 09:10-0400 Heart rate 62 /min Rajwinder Marvin [facility], [facility] [employer], [employer]. Comment on above: Pattern: Regular 06-02-2013 09:10-0400 Systolic blood pressure 121 mm[Hg] Rajwinder Marvin TRANSMISSION WORKER [facility] [employer], [employer] Comment on above: Patient Position: Sitting; Cuff Location : Left Arm; Cuff Size: Standard 04-08-2013 07:59-0400 Body height 167.64 cm Ana Nieves TRANSMISSION WORKER [facility], [facility] [employer], [employer] 04-08-2013 07:59-0400 Body mass index (BMI) [Ratio] 28.89 kg/m2 Ana Nieves [facility], [facility] [employer], [employer] 04-08-2013 07:59-0400 Body surface area Derived from formula 1.91 m2 Ana Nieves TRANSMISSION WORKER [facility], [facility].; [employer] 04-08-2013 07:59-0400 Body weight 81.19 kg Ana Nieves [facility], [facility] [employer]. 04-08-2013 07:59-0400 Diastolic blood pressure 82 mm[Hg] Ana Nieves [facility], [facility] [employer]. Comment on above: Patient Position: Sitting; Cuff Location : Left Arm; Cuff Size: Large 04-08-2013 07:59-0400 Heart rate 108 /min Ana Nieves [facility], [facility] [employer]. Comment on above: Pattern: Regular 04-08-2013 07:59-0400 Systolic blood pressure 123 mm[Hg] Ana Nieves [facility], [facility] [employer], [employer]. Comment on above: Patient Position: Sitting; Cuff Location : Left Arm; Cuff Size: Large 02-21-2013 08:35-0400 Body weight 83.46 kg Rajwinder Marvin LPN [facility], [facility] [employer] 02-21-2013 08:35-0400 Diastolic blood pressure 78 mm[Hg] Rajwinder Marvin [facility], [employer]. Comment on above: Patient Position: Sitting; Cuff Location : Left Arm; Cuff Size: Standard 02-21-2013 08:35-0400 Heart rate 78 /min Rajwinder Marvin LPN [employer] [facility], [employer]. Comment on above: Pattern: Regular 02-21-2013 08:35-0400 Systolic blood pressure 129 mm[Hg] Rajwinder Marvin LPN [employer] [facility], [employer]. Comment on above: Patient Position: Sitting; Cuff Location : Left Arm; Cuff Size: Standard 05-10-2012 09:05-0400 Body height 167.64 cm Rajwinder Marvin LPN [employer] [facility], [facility] [employer]. 05-10-2012 09:05-0400 Body mass index (BMI) [Ratio] 33.89 kg/m2 Rajwinder Marvin LPN [employer] [facility], [facility] [employer]. 05-10-2012 09:05-0400 Body surface area Derived from formula 2.04 m2 Rajwinder Marvin JOSE M [employer] [facility], [facility].; [employer] 05-10-2012 09:05-0400 Body weight 95.26 kg Rajwinder Marvin TRANSMISSION WORKER [facility] [employer], [employer] 05-10-2012 09:05-0400 Diastolic blood pressure 77 mm[Hg] Rajwinder Marvin TRANSMISSION WORKER [facility] [employer], [employer]. Comment on above: Patient Position: Sitting; Cuff Location : Left Arm; Cuff Size: Standard 05-10-2012 09:05-0400 Heart rate 63 /min Rajwinder Marvin JOSE M [facility], [facility] [employer], [employer]. Comment on above: Pattern: Regular 05-10-2012 09:05-0400 Systolic blood pressure 115 mm[Hg] Rajwinder Marvin TRANSMISSION WORKER [employer] [facility], [facility] [employer], [employer] Comment on above: Patient Position: Sitting; Cuff Location : Left Arm; Cuff Size: Standard 11-13-2011 12:03-0500 Body temperature 98.9 [degF] Rajwinder Marvin TRANSMISSION WORKER [employer] [facility], [facility] [employer] 11-13-2011 12:03-0500 Body weight 98.43 kg Rajwinder Marvin TRANSMISSION WORKER [facility] [employer] 11-13-2011 12:03-0500 Diastolic blood pressure 87 mm[Hg] Rajwinder Marvin TRANSMISSION WORKER [employer] [facility] [employer]. Comment on above: Patient Position: Sitting; Cuff Location : Left Arm; Cuff Size: Standard 11-13-2011 12:03-0500 Heart rate 90 /min Rajwinder Marvin JOSE M [employer] [facility], [employer]. Comment on above: Pattern: Regular 11-13-2011 12:03-0500 Inhaled oxygen concentration 20 % Rajwinder Marvin JOSE M [employer] [facility], [facility] [employer] Comment on above: Room air 11-13-2011 12:030500 Inhaled oxygen concentration 21 % Rajwinder Inocente Marvin JOSE M [employer] [facility], [employer]. Comment on above: Room air 11-13-2011 12:03-0500 SaO2% (BldA) [Mass fraction] 98 % Rajwinder Marvin TRANSMISSION WORKER [employer]. 11-13-2011 12:03-0500 Systolic blood pressure 137 mm[Hg] Rajwinder Marvin LPN [employer]. Comment on above: Patient Position: Sitting; Cuff Location : Left Arm; Cuff Size: Standard 11-11-2011 09:50-0500 Body height 168.91 cm Rock Arita MD Work Phone: [employer]. 11-11-2011 09:50-0500 Body mass index (BMI) [Ratio] 34.75 kg/m2 Rock Arita MD Work Phone: [employer]. 11-11-2011 09:50-0500 Body surface area Derived from formula 2.09 m2 Rock Arita MD Work Phone: [employer]. 11-11-2011 09:50-0500 Body temperature 98.4 [degF] Rock Arita MD Work Phone: [employer].; [employer]. Comment on above: Method: Tympanic 11-11-2011 09:50-0500 Body weight 99.16 kg Rock Arita MD Work Phone: [employer]. 11-11-2011 09:50-0500 Diastolic blood pressure 90 mm[Hg] Rock Arita MD Work Phone: [employer]. Comment on above: Patient Position: Sitting; Cuff Location : Left Arm; Cuff Size: Standard 11-11-2011 09:50-0500 Heart rate 85 /min Rock Arita MD Work Phone: [employer]. Comment on above: Pattern: Regular 11-11-2011 09:50-0500 Inhaled oxygen concentration 20 % Rock Arita MD Work Phone: [facility]; [employer]. Comment on above: Room air 11-11-2011 09:50-0500 Inhaled oxygen concentration 21 % Rock Arita MD Work Phone: [facility]; [employer]. Comment on above: Room air 11-11-2011 09:50-0500 SaO2% (BldA) [Mass fraction] 98 % Rock Arita MD Work Phone: [facility]; [employer]. 11-11-2011 09:50-0500 Systolic blood pressure 139 mm[Hg] Rock Arita MD Work Phone: [facility]; [employer]. Comment on above: Patient Position: Sitting; Cuff Location : Left Arm; Cuff Size: Standard 10-20-2010 15:50-0500 Body height 168.91 cm Rock Arita MD Work Phone: [facility]; [employer]. 10-20-2010 15:50-0500 Body mass index (BMI) [Ratio] 33.39 kg/m2 Rock Arita MD Work Phone: [facility]; [employer]. 10-20-2010 15:50-0500 Body surface area Derived from formula 2.05 m2 Rock Arita MD Work Phone: [facility]; [employer]. 10-20-2010 15:50-0500 Body temperature 98.9 [degF] Rock Arita MD Work Phone: [facility]; [employer]. Comment on above: Method: Tympanic 10-20-2010 15:50-0500 Body weight 95.26 kg Rock Arita MD Work Phone: [facility]; [employer]. 10-20-2010 15:50-0500 Diastolic blood pressure 85 mm[Hg] Rock Arita MD Work Phone: [employer]. Comment on above: Patient Position: Sitting; Cuff Location : Left Arm; Cuff Size: Standard 10-20-2010 15:50-0500 Heart rate 84 /min Rock Arita MD Work Phone: [employer]. Comment on above: Pattern: Regular 10-20-2010 15:50-0500 Inhaled oxygen concentration 20 % Rock Arita MD Work Phone: [employer]. Comment on above: Room air 10-20-2010 15:50-0500 Inhaled oxygen concentration 21 % Rock Arita MD Work Phone: [employer]. Comment on above: Room air 10-20-2010 15:50-0500 SaO2% (BldA) [Mass fraction] 98 % Rock Arita MD Work Phone: [employer]. 10-20-2010 15:50-0500 Systolic blood pressure 136 mm[Hg] Rock Arita MD Work Phone: [employer]. Comment on above: Patient Position: Sitting; Cuff Location : Left Arm; Cuff Size: Standard 07-15-2010 10:38-0400 Body temperature 97.4 [degF] Rajwinder Marvin LPN [employer]. 07-15-2010 10:38-0400 Body weight 93.9 kg Rajwinder Marvin LPN [employer]. 07-15-2010 10:38-0400 Diastolic blood pressure 54 mm[Hg] Rajwinder Marvin LPN [employer]. Comment on above: Patient Position: Sitting; Cuff Location : Left Arm; Cuff Size: Standard 07-15-2010 10:38-0400 Heart rate 85 /min Rajwinder Marvin LPN [employer]. Comment on above: Pattern: Regular 07-15-2010 10:38-0400 Systolic blood pressure 126 mm[Hg] Rajwinder Marvin LPN [facility]; [employer] Comment on above: Patient Position: Sitting; Cuff Location : Left Arm; Cuff Size: Standard Encounters Encounter Date Encounter Type Care Provider Facility Start: 05-16-2024 End: 05-16-2024 Office outpatient visit 15 minutes Rock Arita MD Work Phone: [facility] Start: 05-05-2024 End: 05-05-2024 Medication Rock Arita MD Work Phone: [employer]. Start: 03-25-2024 End: 03-25-2024 Periodic preventive med est patient 40-64yrs Rock Arita MD Work Phone: [employer]. Start: 03-14-2024 End: 03-14-2024 Orders Rock Arita MD Work Phone: [employer]. Start: 03-14-2024 Review Rock Arita MD Work Phone: [employer]. Start: 03-14-2024 End: 03-14-2024 Office outpatient visit 15 minutes Rock Arita MD Work Phone: [employer]. Start: 01-10-2024 End: 01-10-2024 Office outpatient visit 15 minutes Rock Arita MD Work Phone: [facility] Start: 01-10-2024 Review Rock Arita MD Work Phone: [employer]. Start: 11-09-2023 End: 11-09-2023 Office outpatient visit 15 minutes Rock Arita MD Work Phone: [employer]. Start: 11-01-2023 End: 11-01-2023 Orders Rock Arita MD Work Phone: [employer]. Start: 10-23-2023 End: 10-23-2023 Office outpatient visit 15 minutes Rock Arita MD Work Phone: [employer]. Start: 08-28-2023 End: 08-28-2023 Medication Rock Arita MD Work Phone: [employer]. Start: 04-12-2023 End: 04-12-2023 Periodic preventive med est patient 40-64yrs Rock Arita MD Work Phone: [employer]. Start: 03-29-2023 End: 03-29-2023 Orders Rock Arita MD Work Phone: [employer]. Start: 01-18-2023 End: 01-18-2023 Office outpatient visit 15 minutes Rock Arita MD Work Phone: [employer]. Start: 04-04-2022 End: 04-04-2022 Office outpatient visit 15 minutes Rock Arita MD Work Phone: [employer]. Start: 03-28-2022 End: 03-28-2022 Periodic preventive med est patient 40-64yrs Rock Arita MD Work Phone: [employer]. Start: 02-14-2022 End: 02-14-2022 Orders Rock Arita MD Work Phone: [employer]. Start: 06-13-2021 End: 06-13-2021 Orders Rock Arita MD Work Phone: [employer]. Start: 06-06-2021 End: 06-06-2021 Office outpatient visit 15 minutes Rock Arita MD Work Phone: [employer]. Start: 04-28-2021 End: 04-28-2021 Medication Rock Arita MD Work Phone: [employer]. Start: 04-27-2021 End: 04-27-2021 Office outpatient visit 15 minutes Rock Arita MD Work Phone: [employer]. Start: 04-18-2021 End: 04-18-2021 Historical Summary Rock Arita MD Work Phone: [employer]. Start: 03-29-2021 End: 03-29-2021 Periodic preventive med est patient 40-64yrs Rock Arita MD Work Phone: [employer]. Start: 02-28-2021 End: 02-28-2021 Orders Rock Arita MD Work Phone: [employer]. Start: 11-12-2020 End: 11-12-2020 Office outpatient visit 15 minutes Rock Arita MD Work Phone: [employer]. Start: 04-28-2020 End: 04-28-2020 Periodic preventive med est patient 40-64yrs Rock Arita MD Work Phone: [employer]. Start: 03-11-2020 End: 03-15-2020 Orders Rock Arita MD Work Phone: [employer]. Start: 11-17-2019 End: 11-18-2019 Office outpatient visit 15 minutes Rock Arita MD Work Phone: [employer]. Start: 11-14-2019 End: 11-14-2019 Medication Rock Arita MD Work Phone: [employer]. Start: 11-13-2019 End: 11-13-2019 Telephone follow-up Rock Arita MD Work Phone: [employer]. Start: 11-10-2019 End: 11-10-2019 Office outpatient visit 15 minutes Rock Arita MD Work Phone: [employer]. Start: 07-28-2019 End: 07-28-2019 Orders Rock Arita MD Work Phone: [employer]. Start: 04-28-2019 End: 04-28-2019 Periodic preventive med est patient 40-64yrs Rock Arita MD Work Phone: [employer]. Start: 04-22-2019 End: 04-22-2019 Orders Rock Arita MD Work Phone: [employer]. Start: 02-17-2019 End: 02-17-2019 Orders Rock Arita MD Work Phone: [employer]. Start: 11-04-2018 End: 11-04-2018 Orders Rock Arita MD Work Phone: [employer]. Start: 11-01-2018 End: 11-01-2018 Orders Rock Arita MD Work Phone: [employer]. Start: 10-28-2018 End: 10-28-2018 Office outpatient visit 15 minutes Rock Arita MD Work Phone: [employer]. Start: 08-21-2018 End: 08-21-2018 Medication Rock Arita MD Work Phone: [employer]. Start: 08-19-2018 End: 08-19-2018 Medication Rock Arita MD Work Phone: [employer]. Start: 08-16-2018 End: 08-16-2018 Office outpatient visit 15 minutes Rock Arita MD Work Phone: [employer]. Start: 05-20-2018 End: 05-20-2018 Orders Rock Arita MD Work Phone: [employer]. Start: 05-15-2018 End: 05-15-2018 Periodic preventive med est patient 40-64yrs Rock Arita MD Work Phone: [employer]. Start: 05-03-2018 End: 05-03-2018 Orders Rock Arita MD Work Phone: [employer]. Start: 04-08-2018 End: 04-08-2018 Orders Rock Arita MD Work Phone: [employer]. Start: 09-29-2017 End: 10-04-2017 Patient encounter procedure Rock Arita MD Work Phone: [employer]. Start: 07-13-2017 End: 07-13-2017 Office outpatient visit 15 minutes Rock Arita MD Work Phone: [employer]. Start: 06-19-2017 End: 06-19-2017 Orders Rock Arita MD Work Phone: [employer]. Start: 05-11-2017 End: 05-11-2017 Periodic preventive med est patient 40-64yrs Rock Arita MD Work Phone: [employer]. Start: 04-27-2017 End: 04-27-2017 Office outpatient visit 15 minutes Rock Arita MD Work Phone: [employer]. Start: 04-06-2017 Ambulatory ROCK ARITA [facility] Start: 04-06-2017 End: 04-06-2017 Orders Rock Arita MD Work Phone: [employer]. Start: 09-01-2016 End: 09-01-2016 Patient encounter procedure Rock Arita MD Work Phone: [employer]. Start: 06-13-2016 End: 06-13-2016 Medication Rock Arita MD Work Phone: [employer]. Start: 06-09-2016 End: 06-09-2016 Office outpatient visit 15 minutes Rock Arita MD Work Phone: [employer]. Start: 05-31-2016 End: 05-31-2016 Periodic preventive med est patient 40-64yrs Rock Arita MD Work Phone: [employer]. Start: 05-30-2016 End: 05-30-2016 Historical Summary Rock Arita MD Work Phone: [employer]. Start: 05-27-2016 End: 05-29-2016 Orders Rock Arita MD Work Phone: [employer]. Start: 05-26-2016 End: 05-26-2016 Orders Rock Arita MD Work Phone: [employer]. Start: 04-21-2016 End: 04-21-2016 Orders Rock Arita MD Work Phone: [employer]. Start: 03-01-2016 End: 03-01-2016 Medication Rock Arita MD Work Phone: [employer]. Start: 01-10-2016 End: 01-10-2016 Orders Rock Arita MD Work Phone: [employer]. Start: 12-10-2015 End: 12-10-2015 Medication Rock Arita MD Work Phone: [employer]. Start: 11-16-2015 End: 11-16-2015 Orders Rock Arita MD Work Phone: [employer]. Start: 11-08-2015 End: 11-08-2015 Office outpatient visit 25 minutes Rock Arita MD Work Phone: [employer]. Start: 09-08-2015 End: 09-08-2015 Medication Rock Arita MD Work Phone: [employer]. Start: 06-25-2015 End: 06-25-2015 Medication Rock Arita MD Work Phone: [employer]. Start: 05-28-2015 End: 05-28-2015 Periodic preventive med est patient 40-64yrs Rock Arita MD Work Phone: [employer]. Start: 05-27-2015 End: 05-27-2015 Orders Rock Arita MD Work Phone: [employer]. Start: 04-27-2015 End: 04-27-2015 Medication Rock Arita MD Work Phone: [employer]. Start: 01-01-2015 End: 01-01-2015 Medication Rock Arita MD Work Phone: [employer]. Start: 12-28-2014 End: 12-28-2014 Orders Rock Arita MD Work Phone: [employer]. Start: 12-25-2014 End: 12-25-2014 Patient encounter procedure Rock Arita MD Work Phone: [employer]. Start: 10-08-2014 End: 10-08-2014 Medication Rock Arita MD Work Phone: [employer]. Start: 09-08-2014 End: 09-08-2014 Medication Rock Arita MD Work Phone: [employer]. Start: 08-10-2014 End: 08-10-2014 Patient encounter procedure Rock Arita MD Work Phone: [employer]. Start: 06-05-2014 End: 06-05-2014 Medication Rock Arita MD Work Phone: [employer]. Start: 06-03-2014 End: 06-03-2014 Patient encounter procedure Rock Arita MD Work Phone: [employer]. Start: 05-19-2014 End: 05-19-2014 Medication Rock Arita MD Work Phone: [employer]. Start: 04-14-2014 End: 04-14-2014 Office outpatient visit 15 minutes Rock Arita MD Work Phone: [employer]. Start: 04-01-2014 End: 04-01-2014 Medication Rock Arita MD Work Phone: [employer]. Start: 04-01-2014 End: 04-01-2014 Patient encounter procedure Rock Arita MD Work Phone: [employer]. Start: 03-28-2014 End: 03-28-2014 Patient encounter procedure Rock Arita MD Work Phone: [employer]. Start: 02-16-2014 End: 02-16-2014 Medication Rock Arita MD Work Phone: [employer]. Start: 01-20-2014 End: 01-20-2014 Medication Rock Arita MD Work Phone: [employer]. Start: 11-21-2013 End: 11-21-2013 Medication Rock Arita MD Work Phone: [employer]. Start: 10-30-2013 End: 10-30-2013 Patient encounter procedure Rock Arita MD Work Phone: [employer]. Start: 09-16-2013 End: 09-16-2013 Medication Rock Arita MD Work Phone: [employer]. Start: 08-11-2013 End: 08-11-2013 Patient encounter procedure Rock Arita MD Work Phone: [employer]. Start: 07-15-2013 End: 07-15-2013 Patient encounter procedure Rock Arita MD Work Phone: [employer]. Start: 07-04-2013 End: 07-04-2013 Medication Rock Arita MD Work Phone: [employer]. Start: 06-25-2013 End: 06-25-2013 Medication Rock Arita MD Work Phone: [employer]. Start: 06-02-2013 End: 06-02-2013 Patient encounter procedure Rock Arita MD Work Phone: [employer]. Start: 05-22-2013 End: 05-22-2013 Medication Rock Arita MD Work Phone: [employer]. Start: 04-08-2013 End: 04-08-2013 Patient encounter procedure Rock Arita MD Work Phone: [employer]. Start: 02-21-2013 End: 02-21-2013 Patient encounter procedure Rock Arita MD Work Phone: [employer]. Start: 05-10-2012 End: 05-10-2012 Patient encounter procedure Rock Arita MD Work Phone: [employer]. Start: 11-13-2011 End: 11-13-2011 Patient encounter procedure Rock Arita MD Work Phone: [employer]. Start: 11-11-2011 End: 11-11-2011 Patient encounter procedure Rock Arita MD Work Phone: [employer]. Start: 10-20-2010 End: 10-20-2010 Patient encounter procedure Rock Arita MD Work Phone: [employer]. Start: 09-12-2010 End: 09-12-2010 Medication Rock Arita MD Work Phone: [employer]. Start: 07-15-2010 End: 07-15-2010 Patient encounter procedure Rock Arita MD Work Phone: [employer]. Procedures Date Procedure Procedure Detail Performing Clinician Start: 05-02-2024 End: 05-02-2024 Siva Wilkerson Brown MD Work Phone: Comment on above: Normal. Negative Start: 03-25-2024 End: 03-24-2024 Depression screening Rock Arita MD Work Phone: Start: 03-25-2024 End: 05-02-2024 Oncology colorectal screening chon 10 dna markrs Rock Arita MD Work Phone: Start: 03-25-2024 End: 03-24-2024 Scr dep neg, no plan reqd Rock Arita MD Work Phone: Start: 03-14-2024 End: 03-14-2024 Vitamin D Kimberly Marti LPN Comment on above: 30.9 Start: 03-14-2024 End: 04-11-2024 Echo tthrc r-t 2d w/wo m-mode rest&strs cont ecg Rock Arita MD Work Phone: Start: 03-10-2024 End: 03-10-2024 Lab findings surveillance Kimberly Marti LPN Comment on above: 101 Start: 03-10-2024 End: 03-10-2024 Lipid panel Kimberly Marti LPN Comment on above: TC 192 LDL 117 HDL 4 6 TRI 146 Start: 03-10-2024 End: 03-10-2024 Thyrotropin [Units/volume] in Serum or Plasma Kimberly Marti LPN Comment on above: 1.72 Start: 10-23-2023 End: 10-25-2023 Radex hip unilateral with pelvis 2-3 views Rock Arita MD Work Phone: Start: 04-12-2023 End: 04-11-2023 Depression screening Rock Arita MD Work Phone: Start: 04-12-2023 End: 04-11-2023 Scr dep neg, no plan reqd Rock Arita MD Work Phone: Start: 03-10-2023 End: 03-10-2023 Lab findings surveillance Kimberly Marti LPN Comment on above: 110 Start: 03-10-2023 End: 03-10-2023 Lipid panel Kimberly Marti LPN Start: 03-10-2023 End: 03-10-2023 Thyrotropin [Units/volume] in Serum or Plasma Kimberly Marti LPN Comment on above: 2.89 Start: 03-10-2023 End: 03-10-2023 Vitamin D Kimberly aMrti LPN Comment on above: 41.2 Start: 04-10-2022 End: 04-10-2022 Screening mammography Rock Arita MD Work Phone: Start: 03-28-2022 End: 03-28-2022 Depression screening Rock Arita MD Work Phone: Start: 03-28-2022 End: 03-28-2022 Scr dep neg, no plan reqd Rock Arita MD Work Phone: Start: 03-28-2022 End: 05-04-2022 Screening mammography bi 2-view breast inc cad Rock Arita MD Work Phone: Start: 06-06-2021 End: 06-09-2021 Radex foot complete minimum 3 views Rock Arita MD Work Phone: Start: 04-04-2021 End: 04-04-2021 Cologuard Kimberly Marti LPN Comment on above: Normal. Negative Start: 03-29-2021 End: 03-29-2021 Depression screening Rock Arita MD Work Phone: Start: 03-29-2021 End: 04-18-2021 Oncology colorectal screening chon 10 dna markrs Rock Arita MD Work Phone: Start: 03-29-2021 End: 03-29-2021 Scr dep neg, no plan reqd Rock Arita MD Work Phone: Start: 04-28-2019 End: 04-28-2019 Depression screening Rock Arita MD Work Phone: Start: 04-28-2019 End: 04-28-2019 Scr dep neg, no plan reqd Rock Arita MD Work Phone: Start: 10-28-2018 End: 11-01-2018 Us abdominal real time w/image documentation Rock Arita MD Work Phone: Start: 07-09-2017 End: 07-09-2017 Appl modality 1/> areas elec stimj unattended Lenka B Dossi DC Work Phone: Start: 07-09-2017 End: 07-09-2017 Appl modality 1/> areas traction mechanical Lenka B Dossi DC Work Phone: Start: 07-09-2017 End: 07-09-2017 Chiropractic manipulative tx spinal 1-2 regions Lenka B Dossi DC Work Phone: Start: 07-04-2017 End: 07-04-2017 Appl modality 1/> areas elec stimj unattended Lenka B Dossi DC Work Phone: Start: 07-04-2017 End: 07-04-2017 Appl modality 1/> areas traction mechanical Lenka B Dossi DC Work Phone: Start: 07-04-2017 End: 07-04-2017 Chiropractic manipulative tx spinal 1-2 regions Lenka B Dossi DC Work Phone: Start: 06-26-2017 End: 06-26-2017 Radex spine cervical 2 or 3 views Lenka B Dossi DC Work Phone: Start: 06-26-2017 End: 06-26-2017 Radex spine thoracic 2 views Lenka B Dos si DC Work Phone: Start: 06-26-2017 End: 06-26-2017 Dietary management education, guidance, and counseling Lenka Dossi DC Start: 11-16-2015 End: 11-16-2015 Doppler echocard pulse wave w/spectral display Rock Arita MD Work Phone: Start: 11-08-2015 End: 11-17-2015 Ecg routine ecg w/least 12 lds i&r only Rock Arita MD Work Phone: Start: 05-27-2015 End: 05-31-2015 Radex forearm 2 views Danielle Call P A-C Work Phone: Start: 08-10-2014 End: 08-12-2014 Ct limited/localized follow up study Danielle Call PA-C Work Phone: Start: 03-28-2014 End: 03-28-2014 Triamcinolone acet inj NOS Alin Argueta MD Work Phone: Start: 02-21-2013 End: 02-24-2013 Us abdominal real time w/image limited Rock Arita MD Work Phone: Back Ana Pinto ey [employer] Cholecystectomy Ana Clearykey [employer] Comment on above: 03/21/13 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 Start: 03-25-2024 Patient encounter procedure Medical; PHYSICAL - awv [facility]. Start: 25-Mar-2024 09:10-04:00 MD Rock Arita Appointment Request [facility]. Start: 03-14-2024 25 hydroxy includes fractions if performed Vitamin D, 25-Hydroxy, LC/MS/MS ([id number]) Start: 14-Mar-2024 Request [facility]; [facility]. Start: 03-14-2024 Assay of thyroid stimulating hormone tsh TSH (THYROID STIMULATING HORMONE) ([id number]) Start: 14-Mar-2024 Request [facility]. Start: 03-14-2024 Comprehensive metabo lic panel CMP w/ GFR* ([id number]) Start: 14-Mar-2024 Request [facility]. Start: 03-14-2024 Lipid panel LIPID PANEL (8 [id number]) Start: 14-Mar-2024 Request [facility]. Start: 03-14-2024 End: 03-17-2024 Echo tthrc r-t 2d w/wo m-mode rest&strs cont ecg [facility]. Start: 10-23-2023 Radex hip unilateral with pelvis 2-3 views Hip/pelvis x-ray, left ([id number]) Start: 23-Oct-[address] [facility] Start: 03-29-2023 Comprehensive metabo lic panel CMP w/ GFR* ([id number]) Start: 29-Mar-2023 Request Comments: order sent for tsh and vitamin D as well, please do all tests [facility] Comment on above: order sent for tsh a nd vitamin D as well, please do all tests Start: 03-29-2023 Lipid panel LIPID PANEL ([id number]) Start: 29-Mar-2023 Request [facility]. Start: 08-01-2017 End: 08-01-2017 Appointment Appointment [facility] Work Phone: Start: 07-12-2017 End: 07-12-2017 Appointment Appointment [facility] Work Phone: Start: 07-09-2017 End: 07-09-2017 Appointment Appointment [facility] Work Phone: Start: 07-09-2017 End: 07-09-2017 Follow up Appt 2x/week Follow up Appt 2x/week [facility] Work Phone: Start: 07-04-2017 End: 07-04-2017 Follow up Appt 2x/week Follow up Appt 2x/week [facility] Work Phone: Start: 07-04-2017 End: 07-04-2017 Appointment Appointment [facility] Work Phone: Start: 06-26-2017 End: 06-26-2017 Appointment Appointment [facility] Work Phone: dexAMETHasone so d phos (bulk) 100 % powder Ordered: 28-Mar-2014 MD Alin Argueta Intent [facility], [facility], [employer] Immunizations Immunization Date Immunization Notes Care Provider Fa cili 04-04-2022 tetanus toxoid, redu andrew diphtheria toxoid, and acellular pertussis vaccine, adsorbed Rock Arita MD Work Phone: [facility]. Comment on above: Site: Right Elvira melendrez: * Tdap (Tetanus, Diphtheria, Pertussis) (11/03/14) 07-26-2021 COVID-Moderna (100 MCG/0.5 ML) Rock Arita MD Work Phone: [facility] 10-05-2020 COVID-Moderna (100 MCG/0.5 ML) Rock Arita MD Work Phone: [facility]. 09-07-2020 COVID-Moderna (100 MCG/0.5 ML) Rock Arita MD Work Phone: [facility]. Payers Date Payer Category Payer Policy ID Unknown [id number] Unknown [facility] Social History Date Type Detail Facility Alcohol Use: Alcohol Use: ; O ccasional alcohol use. [facility]. Caffeine Use Caffeine Use [facility]. Tobacco Use: Tobacco Use: ; Former smoker . [facility]. Female [facility]. Work Phone: Occasional alcohol use [facility] [employer]. Work Phone: Ex-smoker [facility]. Work Phone: Summary Purpose Family History Cancer [...] INFORMATION SOURCE (unrecogn ized section and content) DATE CREATED AUTHOR 03/06/2018 [facility] FOR RECORDS PERTAINING TO PATIENTS WHO ARE [...] BE BASED ON THE PRIMARY CLINICAL RECORDS. [employer] provides no warranty or guarantee of the accuracy or completeness of information in this document.
== END | disposition home or self-care (01) ==
LOC: OPBI 07:34
PROVIDERS: PCP Family Medicine; Referring Provider Obstetrics & Gynecology; Visit Provider Obstetrics & Gynecology
DX: Z12.31 Encounter for screening mammogram for malignant neoplasm of breast (principal)
CPT/HCPCS: 77063; 77067

== ENCOUNTER → 2025-03-17 | Outpatient (CLI) | payer OTHER, SELFPAY ==
[2025-03-17 08:18] LABS: Color, Urine Yellow (Yellow); Glucose, Dipstick Normal (Normal); Ketone-Dipstick Negative (Negative); Leukocyte Esterase-Dipstick Negative /ul (Negative); Nitrite-Dipstick Negative (Negative); Occult Blood-Urine Negative /ul (Negative); Protein-Dipstick 15 mg/dl (Negative); Specific Gravity, Urine 1.015 (1.002-1.030); Urine Bilirubin Dipstick Negative (Negative)
[2025-03-17 08:29] LABS: Absolute Nucleated RBC Count 0.00 10^3/uL (0-5); Hematocrit 37.5 % (37-47); Hemoglobin 12.5 g/dL (12.0-15.0); Mean Corp Hgb Conc 33.3 g/dL (32-36); Mean Corpuscular Volume 86.2 fL (81-99); Mean Platelet Vol. 11.2 fl (6.2-12.0); NRBC Flagged by Analyzer 0 % (0-5); Platelet Count 270 K/mm3 (150-450); RBC Distribution Width CV 13.8 % (11.6-14.6); RBC Distribution Width SD 43.2 fl (35.1-43.9); Red Blood Count 4.35 M/mm3 (4.2-5.4); White Blood Count 11.5 K/mm3 (4.4-11.0)
[2025-03-17 09:05] LABS: Cholesterol 189 mg/dL (<=200); Triglycerides 164 mg/dL; Very Low Density Lipoprotein 33 mg/dL (5-40); cholesterol:hdl ratio screen 4.06
[2025-03-17 09:18] LABS: Cholesterol 189 mg/dL (<=200); Low Density Lipoprotein Calc. 109 mg/dL; Triglycerides 169 mg/dL; Very Low Density Lipoprotein 34 mg/dL (5-40); cholesterol:hdl ratio screen 4.05
[2025-03-17 09:30] LABS: AST(SGOT) 51 U/L (<=31); Alanine Aminotransfer ALT/SGPT 54 U/L (<=34); Albumin, Serum 4.2 g/dL (3.5-5.0); Alkaline Phosphatase 84 U/L (35-104); Anion Gap 11 (5-15); BUN 16 mg/dL (4-19); BUN/Creat Ratio 23.6 RATIO (10-20); Calcium,Total 9.2 mg/dL (7.6-11.0); Carbon Dioxide 22.6 mmol/L (21.0-32.0); Chloride 102 mmol/L (98-108); Globulin 3.4 g/dL (2.2-4.2); Glucose 103 mg/dL (70-99); Potassium 4.2 mmol/L (3.3-5.1)
[2025-03-17 10:15] LABS: AST(SGOT) 49 U/L (<=31); Alanine Aminotransfer ALT/SGPT 54 U/L (<=34); Albumin, Serum 4.1 g/dL (3.5-5.0); Alkaline Phosphatase 85 U/L (35-104); Anion Gap 12 (5-15); BUN 16 mg/dL (4-19); BUN/Creat Ratio 24.3 RATIO (10-20); Bilirubin, Direct 0.11 mg/dL (0.00-0.30); Calcium,Total 9.2 mg/dL (7.6-11.0); Carbon Dioxide 22.1 mmol/L (21.0-32.0); Chloride 102 mmol/L (98-108); Globulin 3.4 g/dL (2.2-4.2); Glucose 103 mg/dL (70-99); LDH 270 U/L (84-246); Potassium 4.1 mmol/L (3.3-5.1); Uric Acid 4.9 mg/dL (2.6-6.0)
== END | disposition home or self-care (01) ==
PROVIDERS: PCP Family Medicine; Referring Provider Family Medicine; Visit Provider Family Medicine
DX: Z13.1 Encounter for screening for diabetes mellitus (principal); Z13.220 Encounter for screening for lipoid disorders; E03.9 Hypothyroidism, unspecified
CPT/HCPCS: 36415; 80053; 80061; 84443

== ENCOUNTER → 2025-08-26 | Outpatient (CLI) | payer OTHER, SELFPAY ==
--- NOTE | 2025-08-26 12:00 | BI_ITS ---
EXAM: SCRN MAMM (CAD)W/MARIBEL BILAT DATE: 08/26/2025 CLINICAL HISTORY: F, Age 55 y/o , SCREENING TECHNIQUE: Procedure Code: [id number] Modality: MG Procedure: SCRN MAMM (CAD)W/MARIBEL BILAT COMPARISON: Prior exam(s) were compared FINDINGS: TISSUE DENSITY: There are scattered areas of fibroglandular density. Bilateral Breast Mammographic Findings: No significant masses, calcifications or other abnormalities are identified. BI/SCRN MAMM (CAD)W/MARIBEL BILAT IMPRESSION: No mammographic evidence of malignancy. OVERALL FINAL ASSESSMENT BI-RADS 1: NEGATIVE. RECOMMENDATION: Routine annual follow-up in 1 Year Additional Recommendation none A letter with findings and recommendations will be mailed to the patient. Reading Location: [id number]
== END | disposition home or self-care (01) ==
LOC: OPBI 11:58
PROVIDERS: PCP Family Medicine; Referring Provider Obstetrics & Gynecology; Visit Provider Obstetrics & Gynecology
DX: Z12.31 Encounter for screening mammogram for malignant neoplasm of breast (principal)
CPT/HCPCS: 77063; 77067